=== PATIENT | female | born 1970 | race Caucasian/White ===

== ENCOUNTER → 2021-10-04 10:07 | Outpatient (CLI) | payer MEDICAID, SELFPAY ==
--- NOTE | 2021-10-04 10:10 | MRI_ITS ---
HISTORY: Low back pain, bilateral leg pain. TECHNIQUE: Multiplanar and multisequence MR images of the lumbar spine. IV Contrast dosage and agent: None. # of images incl. paperwork: 124. COMPARISON: XR 09/05/2021. FINDINGS: VERTEBRAE: Vertebral body heights maintained. No significant bone marrow signal abnormality. ALIGNMENT: No significant anterior or posterior subluxation. CONUS: Normal morphology and position at L1. SOFT TISSUES: Mild posterior subcutaneous edema. Atrophic left kidney with an incompletely imaged 5.7 cm cystic lesion. INTERVERTEBRAL DISCS: T12-L1, L1-2, L2-3:No significant posterior disc herniation, central canal stenosis, or foraminal narrowing. L3-4: Mild left paracentral disc protrusion abutting the left L4 nerve root with minimal narrowing of the thecal sac and mild left foraminal narrowing. L4-5: Small annular fissure. No significant posterior disc herniation, central canal stenosis, or foraminal narrowing. L5-S1: 0.7 x 2.1 cm central disc extrusion with mild inferior migration resulting in bilateral S1 nerve root impingement, and mild bilateral foraminal narrowing MRI/Spine Lumbar (Routine) IMPRESSION: Large central disc extrusion at L5-S1 resulting in nerve root impingement and severe spinal canal stenosis. Atrophic left kidney with an incompletely imaged cystic lesion. Recommend follow-up renal ultrasound. at 1658 Reported and signed by: Luz Fagan MD Electronically Signed: Luz Fagan MD at 16:57 EST Tel , Service support ,
== END ==
PROVIDERS: Referring Provider Orthopaedic Surgery; Visit Provider Orthopaedic Surgery
DX: M51.27 Other intervertebral disc displacement, lumbosacral region (principal)
CPT/HCPCS: 72148

== ENCOUNTER 2021-12-13 15:46 | Observation (INO) | payer MEDICAID, SELFPAY ==
--- NOTE | 2021-11-01 08:24 | EKG12_ITS ---
Test Reason : PRE-OP Blood Pressure : / mmHG Vent. Rate : 104 BPM Atrial Rate : 104 BPM P-R Int : 150 ms QRS Dur : 080 ms QT Int : 342 ms P-R-T Axes : 057 013 039 degrees QTc Int : 449 ms Sinus tachycardia Otherwise normal ECG No previous ECGs available Confirmed by HARRY FISCHER, MAGDIEL ([id number]), art editor LES LONG ([id number]) on 11/01/2021 1:35:05 PM Referred By: Bernabe Lozano Confirmed By:MAGDIEL MCDONALD MD
[2021-11-01 09:06] LABS: Absolute Lymphocyte Count 1.63 X10^3/uL (0.83-4.51); Absolute Neutrophil Count 2.5 X10^3/uL (2.0-7.7); Basophil# 0.02 X10^3/uL; Basophil% 0.4 % (0-1); Eosinophil# 0.05 X10^3/uL; Eosinophils% 1.1 % (0-5); Hematocrit 43.5 % (37-47); Lymphocyte # 1.63 X10^3/ul (0.83-4.51); Lymphocyte % 34.5 % (19-41); Mean Corp Hgb Conc 32.2 g/dL (32-36); Mean Corpuscular Hgb 25.4 pg (27.0-32.0); Mean Corpuscular Volume 78.8 fL (81-99); Mean Platelet Vol. 9.4 fl (6.2-12.0); Monocyte# 0.48 X10^3/uL; Monocyte% 10.2 % (0-10); NRBC Flagged by Analyzer 0 % (0-5); Neutrophil # 2.53 X10^3/uL (2.7-7.7); Neutrophil % 53.6 % (47-70); Platelet Count 293 K/mm3 (150-450); RBC Distribution Width CV 17.2 % (11.6-14.6); RBC Distribution Width SD 48.5 fl (35.1-43.9); Red Blood Count 5.52 M/mm3 (4.2-5.4); White Blood Count 4.7 K/mm3 (4.4-11.0)
[2021-11-01 09:33] LABS: Magnesium 2.2 mg/dL (1.6-2.6)
[2021-11-01 09:36] LABS: Anion Gap 9 (5-15); BUN 10 mg/dL (7-18); BUN/Creat Ratio 11.4 RATIO (10-20); Calcium,Total 9.1 mg/dL (8.5-10.1); Chloride 107 mmol/L (98-107); Creatinine, Serum 0.88 mg/dL (0.55-1.02); EST Glomerular Filtration Rate 73 mL/min (>60); Est Glom Filt Rate - Afr Amer 88 mL/min (>60); Glucose 139 mg/dL (74-106); Potassium 3.9 mmol/L (3.5-5.1); Sodium Level 138 mmol/L (136-145)
[2021-11-01 10:12] LABS: HIV - WCH Non-Reactive (Nonreactive); Hepatitis B Surface Antibody Reactive; Hepatitis C Antibody Non-Reactive (Nonreactive)
[2021-11-02 08:54] LABS: Hepatitis A AB, Total Negative (Negative)
--- NOTE | 2021-12-12 11:05 | PCM.HP.BLA ---
History and Physical Date of Admission: 12/13/21 [facility] [id number] [phone] OFFICE VISITDate of Service: 09/05/21 MR#:[id number]:[id number]: JOSH XIEep #:[id number]:[id number] Provider:Dr. Bernabe Lozano, Age/Sex: 51/F Location:[place]ina:Signed Intake Vital Signs 09/05/21 11:17 Height 5 ft 4 in Weight: 230 lb BMI 39.4 Intake Visit Reasons: LUMBAR SPINE Is patient in pain?: Yes Pain scale (1-10): 10 Allergies acetaminophen [From Vicodin] Allergy (Verified 09/05/21 11:19) vomit, SOB clarithromycin [From Biaxin] Allergy (Verified 09/05/21 11:19) vomit, SOB hydrocodone [From Vicodin] Allergy (Verified 09/05/21 11:19) vomit, SOB Medications tizanidine 4 mg capsule 4 mg PO QHS 09/05/21 [History Confirmed 09/05/21] tramadol 50 mg tablet 50 mg PO DAILY 09/05/21 [History Confirmed 09/05/21] HPI LUMBAR SPINE Details: Parts of this documentation were recorded by a scribe, this documentation accurately reflects the service provided and the decisions made by me, Dr. Bernabe Lozano, 09/05/21 1111. PIERO XIE is a 51 year old F here today for low back pain. Patient states that she had surgery scheduled in [place] but she recently moved and needs to find a new provider. Patient had xrays and an MRI which was mailed to her house. She notes that she has had pain since November where she picked up her grandson and had pain. She had a prior injury several years ago. Patient notes that her pain is down her bilateral leg, left greater than right. She has to wear slippers as her feet are extremely sensative. She is only able to lay on her right side. She has increased pain with all ADLs. She completed physical therapy, she is unsure of the location, which was not helpful. Patient notes had epidural injections, by a provider in [place], which were not helpful. Patient has been to the ED in [facility] where she has been given pain medications. Piero is a most pleasant lady 51 years old whom I will refer to by her first names since I cannot pronounce her last name. She apparently was scheduled for surgical intervention as mentioned in the paragraph above by my scribe. For the reasons mentioned she was unable to go through with the surgery this was supposed to happen in July. Her left leg hurts more than her right leg but they both hurt. In addition she states that she has to urinate frequently which she never did before. However she does not have any trouble starting her stream. She denies any bowel dysfunction. On examination she has more pain with flexion she does extension of her lumbar spine. She has very positive tension signs on both sides. She has very positive straight leg raising particularly on the left. He can stand on her toes with difficulty and stand on her heels. Her left Achilles reflex is decreased as compared to the right. She has no long tract signs. Clonus is absent and Babinski's are downgoing. The disc of her MRI scan should be delivered to her house any day now. She will deliver to my office so that I can review it I will call her by phone and presumptively potentially at least plan on doing surgical intervention depending on the findings. Her symptoms certainly suggest that she will need surgical intervention. Coding Level of Care Code Off vis,new,level 3 Diagnoses Herniated nucleus pulposus, L5-S1 M51.27 Time Spent (min) 30 Assessment and Plan Assessment and Plan (1) Herniated nucleus pulposus, L5-S1:
[2021-12-13] VITALS (14 sets, daily range): BP systolic 138–191; BP diastolic 77–117; PULSE 88–107; RESP 14–18; TEMP 36–36.6; O2SAT 96–100; BMI 42.3
[2021-12-13] MEDS: Lactated Ringers 1,000 ML 15 ML IV ×2 (10:04→11:45)
[2021-12-13] MEDS: Acetaminophen 500 MG Tablet 1000 MG PO (10:05)
[2021-12-13 10:16] LABS: Bedside Glucose 144 mg/dL (70-110)
[2021-12-13] MEDS: Cefazolin 2 GM in 0.9% Normal Saline 100 ML IV (11:14)
--- NOTE | 2021-12-13 11:20 | DISC_PTH ---
PATIENT: PIERO XIE LOC: MS3 U#:[id number] AGE/SX: 51/F ROOM: MS319 RE12/13/[address]: Dr. Selin Adhikari MD : 1970 BED: 1 DIS: 12/16/2021 SPEC #: [id number] RECD: 12/13/21 14:18 STATUS: BOUBACAR LAUGHLIN #: [id number] ML: 12/13/21 11:[address]: Bernabe Lozano DEPT: SURGICAL PATHOLOGY RECD BY: Marlen Brito ENTERED: 12/14/21 08:51 SP TYPE: DISC OTHR DR: MD Dr. Bernabe Hung, DO Dr. Derek White, DO Dr. Selin Adhikari MD No Primary Care Phys Tissues: Intervertebral disc, NOS Procedures: Surgery Specimen Level III Comments: @ Ordering doctor for SUIII edited from to @ by MILTON at 12/14/21 1443 @ Submitting doctor edited from to @ by JOOD at 12/14/21 1443 HEADER OPERATION: ERAS, laminectomy discectomy L5-S1 left side first PRE-OP DIAGNOSIS: Herniated nucleus pulposus L5-S1 TISSUE SUBMITTED: Disc L5-S1 MICROSCOPIC DIAGNOSIS Disc L5-S1: Fragments of fibrocartilaginous tissue with degenerative changes and a few fragments of bone. ELISE:bridger 12/15/2021 MICROSCOPIC DESCRIPTION Slides are reviewed. GROSS DESCRIPTION Received in fixative is one container labeled with the patient's name and designated disc L5-S1. The specimen consists of multiple irregular fragments of robbins, indurated tissue that in aggregate measure 3.5 x 3 x 0.5 cm. Printing Table Worker tissue is submitted in two cassettes. / ELISE:bridger 12/14/2021 TC:5 CPT: 19664
--- NOTE | 2021-12-13 11:20 | RAD_ITS ---
STUDY: X-RAY - LUMBAR SPINE REASON FOR EXAM: Female, 51 years old. LAMINECTOMY DISCECTOMY L5-S1, BILAT -- LT SIDE FIRST TECHNIQUE: 1 view(s) of the lumbar spine was obtained. COMPARISON: None FINDINGS: Intraoperative imaging was obtained. The localization initially is seen posterior to the L5-S1 disc space level. RAD/Spine 1 View Any Level IMPRESSION: The localization instrument is seen along the posterior aspect of the L5-S1 disc space level. Electronically Signed: Dioni Copeland MD at 14:00 EST ,
[2021-12-13] MEDS: THROMBIN (RECOMBINANT) 20,000 UNIT VIAL 20000 UNIT TOPICAL (12:01)
--- NOTE | 2021-12-13 12:58 | OP.PCM_ITS ---
Report of Operation Date of Procedure: 12/13/21 Description of Surgical Findings:: Preoperative diagnosis: Herniated disc L5-S1 Postoperative diagnosis: The same Procedure: Lumbar laminectomy discectomy L5-S1 Surgeon: Dr. Lozano medical receptionist assistant: Leanne Levy NP Anesthesia: General endotracheal anesthesia administered by [facility] Estimated blood loss: Less than 30 cc Drains: None Complications: None Procedure: Patient was taken to the OR where she was placed under general endotr acheal anesthesia while on her gurney. A Marinelli catheter was inserted. Neuro monitoring placed their leads on the patient. The patient was then placed in the prone position on the Campos frame. After appropriate positioning with care to protect her bony prominences her breasts her ulnar nerves of both elbow her brachial plexus on both sides the cervical spine and facial features the back was prepped and draped in standard fashion. A longitudinal incision was then made centered over L5-S1. Subcutaneous tissues were incised length of the skin incision. I then opened the lumbar fascia to the left of the spinous processes and elevated the paravertebral muscles off the lamina of S1 and the lamina of L5. An intraoperative x-ray was then taken with a marker in place to assure that we were indeed at that level which we were. Then elevated the remaining paravertebral muscles off the lamina and put a Estefani retractor in place. With Nazlini rongeurs I removed the fatty tissue off of the ligamentum flavum. I then thinned down the lamina which was quite thick of L5 on this left side with double-action rongeurs I then used a curette both straight and angled to release the ligamentum flavum off the underside of the lamina. I then also released part of it off the top of the S1 lamina. Using a hockey-stick under the medial portion of the ligamentum flavum I then cut the medial portion and then used curettes to release it off of the edge of the top of S1. I then remove the ligamentum flavum with 45 degree Kerrison rongeurs and moved it all the way lateralward and remove remove the remaining ligamentum flavum and it to open the lateral gutter. Then retracted the nerve root and dura medialward quite a bit. Then a fight the large herniation note that this was subligamentous and so since the vast majority of her pain with the left side we decided to first open the posterior longitudinal ligament and began removing disc from within the middle of the disc. This was done using pituitary rongeurs both a bite straits till we decompressed the entire thing probably decompressing the right side also. For that reason we decided not to open the right side at all. Bleeders were controlled with bipolar cautery and thrombin-soaked Gelfoam. We had excellent hemostasis throughout the case. Note also that every 10 or 15 minutes we thoroughly irrigated with copious amounts of sterile saline. We had excellent hemostasis at the end of the case we placed a amnionic membrane directly over the dura and nerve and covered it with Gelfoam. The ear was so dry that we decided to not put a drain in at all. I then closed the lumbar fascia using [id number] suture with #1 Vicryl. We then followed up by closing the subcutaneous tissues in layers with 0 Vicryl and 2-0 Vicryl in interrupted fashion. The skin was approximated using skin clips. Sterile dressings were then applied. She is then recovered in the OR she was moved to her hospital bed and taken to recovery in satisfactory condition. This is the end of operative summary on Carol Hernandes. Is Dr. Lozano dictating.
[2021-12-13] MEDS: Morphine 4 MG/ML Syringe IV ×3 (16:00→21:51)
[2021-12-13] MEDS: Lactated Ringers 1,000 ML 100 ML IV (16:01)
[2021-12-13] MEDS: diazePAM 5 MG Tablet PO (16:49)
--- NOTE | 2021-12-13 17:09 | PCM.PN.HOSP ---
Documented by User: CISCO Mercado 12/13/21 17:17 Subjective Subjective Patient seen and examined. Patient lying in bed on her right side reports that she is continuing to have pain despite receiving pain medication as well as Valium. Objective Data Objective Data Vital Signs: Vital Signs Temp Pulse Resp BP Pulse Ox 97.9 F 95 16 138/97 H 97 12/13/21 15:44 12/13/21 15:44 12/13/21 15:44 12/13/21 15:44 12/13/21 15:44 Oxygen Flow Rate (L/min) 4 Oxygen Delivery Method Room Air Weight: 246 lb 4.101 oz Body Mass Index (BMI) 42.3 Intake & Output: Intake and Output for Last 24 Hours 12/11/21 12/12/21 12/13/21 23:59 23:59 23:59 Intake Total 1280.75 / 1280.75 Output Total 1200 / 1200 Balance 80.75 / 80.75 Lab / Micro Data Result Diagrams: 11/01/21 08:41 11/01/21 08:41 Labs: Laboratory Results - last 24 hr 12/13/21 09:46: POC Glucose 144 H Micro: Microbiology 12/12/21 09:15 Interface Orders SARS-CoV-2 Antigen (Rapid) - Final 11/01/21 08:41 Swab (Method) Nasal Screen MRSA/MSSA - Final Radiography Diagnostic Testing: Radiology Impression Spine X-Ray 12/13/21 11:20 IMPRESSION: The localization instrument is seen along the posterior aspect of the L5-S1 disc space level. Electronically Signed: Dioni Copeland MD at 14:00 EST , Physical Exam Const alert, oriented x3 and no apparent distress HEENT head/scalp atraumatic Head and Scalp: normocephalic Eyes conjunctivae normal and no scleral icterus Neck no lymphadenopathy and supple General: trachea midline Resp normal respiratory effort, normal air movement and clear to auscultation bilaterally Effort and Inspection: able to speak in complete sentences and symmetric chest movement Cardio regular rate, regular rhythm, S1 normal heart sound and S2 normal heart sound GI normal to inspection, nondistended, normoactive bowel sounds, soft to palpation and non-tender Extremity normal to inspection, full ROM and no clubbing, cyanosis or edema Peripheral Pulses: Yes pulses 2+ throughout Skin no rashes or lesions noted, no wounds and skin turgor normal Skin Narrative: Dressings dry and intact, incisions not visualized at this time Neuro oriented x3, moves all extremities, no focal motor deficits and no sensory deficits noted Sensorium / Orientation: awake and alert Psych affect normal Assessment & Plan Assessment/Plan (1) Herniated nucleus pulposus, L5-S1: PLAN: 1. GERD -Patient takes lansoprazole at home, ordered pantoprazole here as a therapeutic interchange 2. History of hypertension -Patient has a history of hypertension but is not currently on medication due to recent weight loss. -Elevated blood pressures likely secondary to pain. -Vital signs per protocol 3. Lumbar laminectomy discectomy L5-S1 -Pain management protocol per Dr. Lozano -PT to eval and treat -Encourage incentive spirometry DVT prophylaxis-SCDs This patient was seen by Katia Oscar, WELDING MACHINE OPERATOR RESISTANCE-C under the supervision of Dr. White. 9 minutes spent in clinical coordination of patient's plan of care. Documented by User: Dr. Derek White DO 12/13/21 18:53 Objective Data Lab / Micro Data Result Diagrams: 11/01/21 08:41 11/01/21 08:41 Charges/Coding Addendum Addendum: Patient was seen and examined independently of Mandi Oscar, the hospitalist services been consulted for medical management on this patient who underwent a laminectomy today. Patient's medical problems include degenerative joint disease of the lumbar spine and GERD. Patient's significant other was in her room at the time my examination. Other than incisional back pain, patient has no complaints at this time. On examination she appeared in good health and spirits, she does not appear to be in any distress. Vital signs as documented. Skin warm and dry and without overt rashes. Neck without JVD, thyroid appears normal, trachea is midline, neck is supple. Lungs clear, normal air movement was noted. Heart exam notable for regular rhythm, normal sounds and absence of murmurs, rubs or gallops. Abdomen unremarkable and without evidence of organomegaly, masses, or abdominal aortic enlargement, bowel sounds are present in all 4 quadrants, no abdominal tenderness was noted. Extremities nonedematous, no cyanosis was noted, no clubbing was noted. Neuro: Cranial nerves II through XII are grossly intact, no focal motor deficits were noted, sensation to light touch and pinprick is intact, motor exam 5/5 throughout. Psych: Patient is alert and oriented x3, she does not appear anxious or depressed, she does not appear agitated. Impression: #1 GERD-continue Protonix # 2 degenerative joint disease of the lumbar spine-status post laminectomy/discectomy-orthopedic surgery is seeing patient Patient uses generic Prevacid at home for her GERD, she is now on Protonix here which I feel needs continued. Patient appears medically stable at this point. I have reviewed Mandi Oscar's progress note including her medical assessment and plan of care and endorse it. Total clinical time spent addressing the patient's medical issues, reviewing her medical data, and collaborating with the patient's care team: 20 minutes Visit Charges Inpatient E&M: 59010 Subs Hosp L2
[2021-12-13] MEDS: traMADol 50 MG Tablet PO (17:42)
[2021-12-13] MEDS: Cefazolin 1 GM/50 ML BAG IV (18:39)
[2021-12-13] MEDS: Pantoprazole Sodium 20 MG Tablet PO (21:50)
[2021-12-14] VITALS (11 sets, daily range): BP systolic 134–181; BP diastolic 70–112; PULSE 95–108; RESP 15–18; TEMP 36.6–37.7; O2SAT 93–98
[2021-12-14] MEDS: Morphine 4 MG/ML Syringe IV ×10 (01:23→22:55)
[2021-12-14] MEDS: Lactated Ringers 1,000 ML 100 ML IV (01:29)
[2021-12-14] MEDS: traMADol 50 MG Tablet PO ×2 (02:54→11:22)
[2021-12-14] MEDS: Cefazolin 1 GM/50 ML BAG IV (03:07)
[2021-12-14] MEDS: Pantoprazole Sodium 20 MG Tablet PO ×2 (07:32→20:49)
[2021-12-14] MEDS: diazePAM 5 MG Tablet PO ×2 (07:32→13:55)
[2021-12-14] MEDS: 0.9% Saline Lock 10 ML Syringe IV ×8 (08:21→22:55)
--- NOTE | 2021-12-14 10:50 | CASEMGMT ---
Addendum entered by Karri Madrid 12/16/21 15:36: 12/14/21 @ 1050. Correction: Plan. CM to assist w/getting a walker for pt prior to discharge. Original Note: RN CM DIRECTOR OF [employer] CM to room to meet with patient for initial transition planning/care coordination assessment. RN CM introduced self and role at [facility]. Pt voices understanding and consents to assessment at this time. Pt resting in bed at this time. Painful. RN CM offered to return later to complete assessment, when not as painful, but pt states okay for RN CM to complete at this time. Pt is A/O at this time and answers all questions appropriately. Care providers, pharmacy, and demographics verified/updated at this time. PCP: No PCP. Provided w/list of local PCP's. Pt voices appreciation. Specialists: Dr Colmenares Preferred Pharmacy: [facility] Retail Insurance: 7-bit[employer] Prescription Benefit: Yes Living Will/HPOA: Pt does not currently have LW/HCPOA and declines info at this time. LNOK: , Arnav Living Arrangements: Lives w/, daughter and son-in-law and their 4children. Pt and her just moved from [place] to stay w/them. Pt states move was d/t her dtr has a small inoperable brain tumor and pt and her moved to help take care of the children. Pt states she has been having so much pain that her dtr has actually been needing to assist her instead. Pt states plan is after she recovers from surgery, that she will be able to start helping her dtr w/taking care of the grandchildren. They live in a 2-story home w/1 step to enter. House has 4 bedrooms and 3 bathrooms. Pt's bedroom and private bathroom is on 2nd floor. Transportation: DME: States has the following DME: built-in shower seat. Pt does not have a walker and would like to get one. Pt provided w/list of local DME companies. Pt has no preference. HHC/SNF: No history of either. No needs identified. Pt wishes to return home and states has no concerns with going home at time of discharge. Pt states she has 1-2 beers a week and takes a hit of marijuana about once a week for severe GERD. She states does not have medical marijuana card, but is in the process of getting this. CM to follow for any further discharge planning/needs. Pt voices no further concerns/needs at this time. Advised pt to ask for CM if any further questions/concerns/needs arise. Voices understanding. PLAN: Home w/family support and discharge plans in place. CM to assist w/getting a W/C for pt prior to discharge. Janice AMAYAN RN CM
--- NOTE | 2021-12-14 11:50 | PN.HOSP_ITS ---
Documented by User: Dawood COLMENARES 12/14/21 11:58 Subjective Subjective Patient is a 51-year-old female comfortably resting in bed, alert and orient x3. Patient denies development of any new symptoms overnight. Does not appear in acute distress. Objective Data Objective Data Vital Signs: Vital Signs Temp Pulse Resp BP Pulse Ox 98.0 F 105 H 16 181/112 H 95 12/14/21 08:05 12/14/21 08:11 12/14/21 08:11 12/14/21 08:05 12/14/21 08:30 Oxygen Flow Rate (L/min) 4 Oxygen Delivery Method Room Air Weight: 246 lb 4.101 oz Body Mass Index (BMI) 42.3 Intake & Output: Intake and Output for Last 24 Hours 12/12/21 12/13/21 12/14/21 23:59 23:59 23:59 Intake Total 3352.42 / 3352.42 3767.00 / 3767.00 Output Total 4900 / 4900 3550 / 3550 Balance -1547.58 / -1547.58 217.00 / 217.00 Lab / Micro Data Result Diagrams: 11/01/21 08:41 11/01/21 08:41 Micro: Microbiology 12/12/21 09:15 Interface Orders SARS-CoV-2 Antigen (Rapid) - Final 11/01/21 08:41 Swab (Method) Nasal Screen MRSA/MSSA - Final Radiography Diagnostic Testing: Radiology Impression Spine X-Ray 12/13/21 11:20 IMPRESSION: The localization instrument is seen along the posterior aspect of the L5-S1 disc space level. Electronically Signed: Dioni Copeland MD at 14:00 EST , Physical Exam Const alert, oriented x3 and no apparent distress HEENT head/scalp atraumatic and moist oral mucous membranes Head and Scalp: normocephalic Eyes PERRL and conjunctivae normal Neck no lymphadenopathy, supple and no JVD Resp normal respiratory effort, no retractions and no use of accessory muscles Cardio regular rate, regular rhythm and no JVD GI normal to inspection, nondistended, normoactive bowel sounds Extremity normal to inspection Skin no rashes or lesions noted Neuro CN's II-XII intact bilaterally Psych affect normal Assessment & Plan Assessment/Plan (1) Herniated nucleus pulposus, L5-S1: PLAN: Patient is a 51-year-old female who presents to the [facility] on consult from orthopedics for management of chronic medical conditions status post L5-S1 lumbar laminectomy/discectomy. 1) GERD Continue pantoprazole. 2) History of hypertension Currently managing blood pressure with therapeutic lifestyle change, no home BP meds. blood pressures are currently elevated at 181/112, likely secondary to pain. As needed hydralazine ordered. 3) herniated L5-S1 POD 1 s/p lumbar laminectomy/discectomy L5-S1. Management per orthopedics. DVT prophylaxis - SCD's Patient seen by Dawood Jenkins PA-C, under the supervision of Dr. Adhikari. Time spent on patient care: 8 minutes. Documented by User: Dr. Selin Adhikari MD 12/14/21 14:37 Objective Data Lab / Micro Data Result Diagrams: 11/01/21 08:41 11/01/21 08:41 Charges/Coding Addendum Addendum: Patient seen by Dawood Jenkins PA-C under my supervision Patient seen and examined. She was in tears at the time of my review, and said she was in a lot of pain from the surgery. SHe tells me that she has a very high tolerance for pain meds, and needs a lot of pain meds for it to take effect. Review of systems was otherwise negative. O/E: Const alert, oriented x3 and in moderate distress and tearful due to pain HEENT head/scalp atraumatic and moist oral mucous membranes Head and Scalp: normocephalic Eyes PERRL and conjunctivae normal Neck no lymphadenopathy, supple and no JVD Resp normal respiratory effort, no retractions and no use of accessory muscles Cardio regular rate, regular rhythm and no JVD GI normal to inspection, nondistended, normoactive bowel sounds Extremity normal to inspection Skin no rashes or lesions noted; intact dressing over lower back Neuro CN's II-XII intact bilaterally Psych affect: anxious Assessment and plan #Herniated disc of L5-S1 s/p L5-Sq lumbar laminectomy/discectomy * today is POD 1. Complains that pain is poorly controlled * on IV morphine 4mg q3hr prn. Will switch the frequency to 2hr prn. * allergic to hydrocodone, so cannot get dilaudid * PO tylenol prn * incentive spirometry * PT/OT on board. Fall precautions. * #Hypertension: managed by diet. Not on any Bp meds. IV hydralazine prn #GERD: on PPI DVT prophylaxis; as per primary team spine surgery. Currently has SCDs. Patient seen by Dawood Jenkins PA-C under my supervision Time I spent on patient's care today: 20 minutes with a total time of 28 minutes as 8 minutes was spent by Dawood Jenkins PA-C. Visit Charges Inpatient E&M: 30605 Subs Hosp L2
--- NOTE | 2021-12-14 12:56 | PCM.PN.ORT ---
Objective Data Objective Data Bettie is on post op day #1. She states that her left leg and right leg pain are much much better and almost all gone. However her back hurts her quite a bit. Her dressing is dry on examination. Neurologically she is intact on examination. I explained her that because she cannot take any medications it seems like including hydrocodone oxycodone or Dilaudid that we have to do the best we can with morphine and tramadol. We will try to keep her 1 more day just for pain control. She already has been up today. She is using her incentive spirometry also. Progress is satisfactory. She will be seen tomorrow by my PA Jose Murray. He will discharge her at the appropriate time. Vital Signs: Vital Signs Temp Pulse Resp BP Pulse Ox 98.0 F 105 H 16 181/112 H 98 12/14/21 08:05 12/14/21 08:11 12/14/21 08:11 12/14/21 08:05 12/14/21 09:56 Oxygen Flow Rate (L/min) 4 Oxygen Delivery Method Room Air Weight: 246 lb 4.101 oz Body Mass Index (BMI) 42.3 Intake & Output: Intake and Output for Last 24 Hours 12/12/21 12/13/21 12/14/21 23:59 23:59 23:59 Intake Total 3352.42 / 3352.42 4567.00 / 4567.00 Output Total 4900 / 4900 3550 / 3550 Balance -1547.58 / -1547.58 1017.00 / 1017.00 Lab / Micro Data Result Diagrams: 11/01/21 08:41 11/01/21 08:41 Micro: Microbiology 12/12/21 09:15 Interface Orders SARS-CoV-2 Antigen (Rapid) - Final 11/01/21 08:41 Swab (Method) Nasal Screen MRSA/MSSA - Final Radiography Diagnostic Testing: Radiology Impression Spine X-Ray 12/13/21 11:20 IMPRESSION: The localization instrument is seen along the posterior aspect of the L5-S1 disc space level. Electronically Signed: Dioni Copeland MD at 14:00 EST ,
[2021-12-15 02:00] VITALS: O2SAT 96
[2021-12-15 04:05] VITALS: BP 141/71; PULSE 100; RESP 15; TEMP 37.2; O2SAT 96
[2021-12-15] MEDS: Morphine 4 MG/ML Syringe IV ×4 (04:25→20:37)
[2021-12-15] MEDS: 0.9% Saline Lock 10 ML Syringe IV ×4 (04:26→20:37)
[2021-12-15] MEDS: Pantoprazole Sodium 20 MG Tablet PO ×2 (08:32→20:36)
--- NOTE | 2021-12-15 09:58 | PN.HOSP_ITS ---
Documented by User: Stephani Cardenas NP, CLINICAL ATHLETIC INSTRUCTOR-C 12/15/21 10:05 Subjective Subjective Patient seen and examined. States she still having significant pain. States she is unable to take Tylenol due to causing upset stomach. Denies bowel/bladder issues. Denies other symptoms or complaints. Objective Data Objective Data Vital Signs: Vital Signs Temp Pulse Resp BP Pulse Ox 99.0 F 100 15 141/71 H 96 12/15/21 04:05 12/15/21 04:05 12/15/21 04:05 12/15/21 04:05 12/15/21 04:05 Oxygen Flow Rate (L/min) 4 Oxygen Delivery Method Room Air Weight: 246 lb 4.101 oz Body Mass Index (BMI) 42.3 Intake & Output: Intake and Output for Last 24 Hours 12/13/21 12/14/21 12/15/21 23:59 23:59 23:59 Intake Total 3352.42 / 3352.42 6067.00 / 6367.00 400 / 400 Output Total 4900 / 4900 3550 / 3550 Balance -1547.58 / -1547.58 2517.00 / 2817.00 400 / 400 Lab / Micro Data Result Diagrams: 11/01/21 08:41 11/01/21 08:41 Micro: Microbiology 12/12/21 09:15 Interface Orders SARS-CoV-2 Antigen (Rapid) - Final 11/01/21 08:41 Swab (Method) Nasal Screen MRSA/MSSA - Final Physical Exam Const alert, oriented x3 and no apparent distress Orientation / Consciousness: awake, oriented to person, oriented to place and oriented to time Nutritional Appearance: obese HEENT normocephalic and moist oral mucous membranes Eyes PERRL, EOMs intact bilaterally and conjunctivae normal Neck no lymphadenopathy Resp normal respiratory effort and clear to auscultation bilaterally Cardio regular rate, regular rhythm and no murmurs Peripheral Pulses: pulses 2+ throughout GI normal to inspection, nondistended, normoactive bowel sounds, non-tender and non-distended Extremity normal to inspection Skin no rashes or lesions noted Skin Narrative: Lumbar postoperative dressing intact. Lesions: no lesions Rashes: no rashes Trauma: no lacerations or abrasions Neuro CN's II-XII intact bilaterally, no focal motor deficits, no sensory deficits noted and deep tendon reflexes 2+ bilaterally Psych mental status grossly normal and affect normal Assessment & Plan Assessment/Plan (1) Herniated nucleus pulposus, L5-S1: PLAN: 1. Herniated disc L5-S1 status post lumbar laminectomy discectomy [id number] per surgery. PT/OT. As needed pain regimen. 2. Hypertension-intermittently elevated. Continue to monitor. As needed hydralazine. 3. GERD-on PPI. 4. Obesity- encouraged diet and lifestyle modifications. DVT prophylaxis- SCDs This patient was seen by CISCO Rodriguez under the supervision of Dr. Adhikari. Time spent examining patient, reviewing data and subsequent management of care: 7 Minutes Documented by User: Dr. Selin Adhikari MD 12/15/21 16:20 Objective Data Lab / Micro Data Result Diagrams: 11/01/21 08:41 11/01/21 08:41 Charges/Coding Addendum Addendum: Patient seen by Stephani PECK under my supervision Patient seen and examined. Pain is better controlled today she rated at 7 out of 10. She has no other complaints and review of systems otherwise negative. O/E: Const alert, oriented x3 and no apparent distress Orientation / Consciousness: awake, oriented to person, oriented to place and oriented to time Nutritional Appearance: obese HEENT normocephalic and moist oral mucous membranes Eyes PERRL, EOMs intact bilaterally and conjunctivae normal Neck no lymphadenopathy Resp normal respiratory effort and clear to auscultation bilaterally Cardio regular rate, regular rhythm and no murmurs Peripheral Pulses: pulses 2+ throughout GI normal to inspection, nondistended, normoactive bowel sounds, non-tender and non-distended Extremity normal to inspection Skin no rashes or lesions noted Skin Narrative: Lumbar postoperative dressing intact. Lesions: no lesions Rashes: no rashes Trauma: no lacerations or abrasions Neuro CN's II-XII intact bilaterally, no focal motor deficits, no sensory deficits noted and deep tendon reflexes 2+ bilaterally Psych mental status grossly normal and affect normal Assessment and plan #Herniated disc of L5-S1 s/p L5-Sq lumbar laminectomy/discectomy * today is POD 2. Pain is better controlled today * on IV morphine 4mg q2hr prn. * On PO tylenol prn * incentive spirometry * PT/OT on board. Fall precautions. * #Hypertension: managed by diet. Not on any Bp meds. IV hydralazine prn #GERD: on PPI DVT prophylaxis; as per primary team spine surgery. Currently has SCDs. Patient seen by Mina Cardenas CLINICAL ATHLETIC INSTRUCTOR-C under my supervision Total time I spent on patient's care today: 21 mins, with CLINICAL ATHLETIC INSTRUCTOR spending 7 mins, making a total of 28 mins Visit Charges Inpatient E&M: 63647 Subs Hosp L2
[2021-12-15 10:23] VITALS: BP 149/91; PULSE 105; RESP 18; TEMP 37.6; O2SAT 95
[2021-12-15] MEDS: traMADol 50 MG Tablet PO (15:08)
--- NOTE | 2021-12-15 15:16 | PCM.PN.ORT ---
Subjective Subjective Patient evaluated today at bedside with patient lying in bed in right lateral decubitus position. Patient states that she still is having a lot of pain in the back. She has some minor left buttock pain at the same time she states that she is not having any pain radiating down the leg like she was preoperatively. She has been able to get up and walk to the bathroom which she states does exacerbate her pain. She has not had any headache, dizziness, blurred vision, GI symptoms, or any other symptoms. Objective Data Objective Data Vital Signs: Vital Signs Temp Pulse Resp BP Pulse Ox 99.6 F H 105 H 18 149/91 H 95 12/15/21 10:23 12/15/21 10:23 12/15/21 10:23 12/15/21 10:23 12/15/21 10:23 Oxygen Flow Rate (L/min) 4 Oxygen Delivery Method Room Air Weight: 246 lb 4.101 oz Body Mass Index (BMI) 42.3 Intake & Output: Intake and Output for Last 24 Hours 12/13/21 12/14/21 12/15/21 23:59 23:59 23:59 Intake Total 3352.42 / 3352.42 6067.00 / 6367.00 400 / 400 Output Total 4900 / 4900 3550 / 3550 Balance -1547.58 / -1547.58 2517.00 / 2817.00 400 / 400 Lab / Micro Data Result Diagrams: 11/01/21 08:41 11/01/21 08:41 Micro: Microbiology 12/12/21 09:15 Interface Orders SARS-CoV-2 Antigen (Rapid) - Final 11/01/21 08:41 Swab (Method) Nasal Screen MRSA/MSSA - Final Physical Exam Narrative Patient is a 51-year-old mildly obese female seen today at her bedside postoperative day 2 after L5-S1 Lumbar laminectomy discectomy. Patient at this time is alert and oriented x3 with no acute distress at this time while lying in bed. She is some mild evidence of discomfort when she tries to roll over or move in the bed. She is conversing easily without any confusion or difficulties with speech. Extremity Left Lower Extremity: lower leg inspection (Inspection of the lower leg shows no acute abnormalities. There is no generalized swelling and no ecchymosis/bruising, erythema, or evident skin changes.), palpation, neurovascular exam (Patient has normal sensation to light touch throughout the lower extremity. She has intact motor function of\foot/toes. No evident gross motor dysfunction/weakness compared to the right leg.), other (Patient has soft compartments throughout the entire lower extremity.) and special tests Lower Leg Special Test - Left: Marcus's sign: Negative Skin General Skin Exam: no breakdown; Negative for ecchymosis or erythema Wound Narrative: Incision site in the midline of the lumbar spine shows good approximation and no surrounding erythema, discharge, warmth, or other signs of acute inflammation or infection. [place] are currently in place. Overlying dressing is also clean and dry. Neuro Sensorium / Orientation: awake, alert, oriented to person, oriented to place and oriented to time Speech: speech normal Sensory Exam: extremities light-touch: normal Assessment & Plan Assessment/Plan (1) Herniated nucleus pulposus, L5-S1: (2) Other acute postprocedural pain: PLAN: Patient was seen today at her bedside postop day 2 for L5-S1 lumbar laminectomy/discectomy. At this time patient has shown pretty much full resolution of the radicular type pain in the lower extremity at the same time she has continued to have pretty significant postoperative pain in the lumbar spine. She has required morphine every 2-3 hours due to pain scale being above 7. As a result she has not been able to take any of the oral tramadol which is the only at home medicine she will be able to take having allergies to oxycodone, hydrocodone and other codeine products. At this time we did discuss with patient that in order for her to go home that we need to really begin to transition to what she will be taking at home which is the Ultram. Right now again having had morphine every 2-3 hours I do not feel that it would be ideal to send her home. Therefore we really need to begin transitioning her to the Ultram stretching out her morphine to every 6-8 hours only. Right now while she was lying in bed she stated her pain was at a 5 and therefore would stick with Ultram right now and not do any morphine. We can try to do more icing to the area which may help as well. Her incision looks great at this time without any signs of acute inflammation or infection. She is neurovascularly intact throughout the extremity with soft compartments and negative Homans. She is to continue to do her ankle pumps while she is lying in bed and they can continue with the SCDs. We can leave the dressing in place at this time and change it if there is any type of saturation or if it comes loose. We will reevaluate tomorrow and as long as she has been able to decrease her morphine use then we will discharge her tomorrow.
[2021-12-15 15:24] VITALS: BP 145/85; PULSE 108; RESP 18; TEMP 37; O2SAT 98
[2021-12-15 20:45] VITALS: BP 155/83; PULSE 93; RESP 18; TEMP 36.8; O2SAT 97
[2021-12-15] MEDS: diazePAM 5 MG Tablet PO (20:51)
[2021-12-16 03:05] VITALS: BP 133/65; PULSE 84; RESP 16; TEMP 36.9; O2SAT 96
[2021-12-16] MEDS: traMADol 50 MG Tablet PO ×2 (03:11→11:25)
[2021-12-16] MEDS: Morphine 2 MG/ML Syringe IV (08:29)
[2021-12-16] MEDS: 0.9% Saline Lock 10 ML Syringe IV (08:30)
[2021-12-16] MEDS: Pantoprazole Sodium 20 MG Tablet PO (08:30)
--- NOTE | 2021-12-16 09:26 | PN.HOSP_ITS ---
Documented by User: Stephani Cardenas NP, MARINE DESIGNER-C 12/16/21 09:31 Subjective Subjective Patient seen and examined. Reports significant improvement in pain. Denies other symptoms or complaints. Patient reports plan for discharge today per Ortho. Objective Data Objective Data Vital Signs: Vital Signs Temp Pulse Resp BP Pulse Ox 98.4 F 84 16 133/65 H 96 12/16/21 03:05 12/16/21 03:05 12/16/21 03:05 12/16/21 03:05 12/16/21 03:05 Oxygen Flow Rate (L/min) 4 Oxygen Delivery Method Room Air Weight: 246 lb 4.101 oz Body Mass Index (BMI) 42.3 Intake & Output: Intake and Output for Last 24 Hours 12/14/21 12/15/21 12/16/21 23:59 23:59 23:59 Intake Total 6067.00 / 6367.00 400 / 400 Output Total 3550 / 3550 Balance 2517.00 / 2817.00 400 / 400 Lab / Micro Data Result Diagrams: 11/01/21 08:41 11/01/21 08:41 Micro: Microbiology 12/12/21 09:15 Interface Orders SARS-CoV-2 Antigen (Rapid) - Final 11/01/21 08:41 Swab (Method) Nasal Screen MRSA/MSSA - Final Physical Exam Const alert, oriented x3 and no apparent distress Orientation / Consciousness: awake, oriented to person, oriented to place and oriented to time HEENT normocephalic and moist oral mucous membranes Eyes PERRL, EOMs intact bilaterally and conjunctivae normal Neck no lymphadenopathy Resp normal respiratory effort and clear to auscultation bilaterally Cardio regular rate, regular rhythm and no murmurs Peripheral Pulses: pulses 2+ throughout GI normal to inspection, nondistended, normoactive bowel sounds, non-tender and non-distended Extremity normal to inspection Skin no rashes or lesions noted Skin Narrative: Lumbar dressing intact. Lesions: no lesions Rashes: no rashes Trauma: no lacerations or abrasions Neuro CN's II-XII intact bilaterally, no focal motor deficits, no sensory deficits noted and deep tendon reflexes 2+ bilaterally Psych mental status grossly normal and affect normal Assessment and Plan 1. Herniated disc L5-S1 status post lumbar laminectomy discectomy [id number] per surgery. PT/OT. As needed pain regimen. 2. Hypertension-intermittently elevated. Suspect pain contributing. Recommend further outpatient monitoring and initiation of regimen if blood pressure above goal on an outpatient basis. 3. GERD-on PPI. 4. Obesity- encouraged diet and lifestyle modifications. DVT prophylaxis- SCDs This patient was seen by CISCO Rodriguez under the supervision of Dr. Adhikari. Time spent examining patient, reviewing data and subsequent management of care: 6 Minutes Medications: Prescriptions This Visit Medication Instructions Recorded lansoprazole 20 mg PO BID 10/31/21 Primary Care Provider: No Primary Care Phys Referring Provider: Dr. Bernabe Lozano DO Assessment and Plan (1) Herniated nucleus pulposus, L5-S1: Status: Acute (2) Other acute postprocedural pain: Status: Acute Documented by User: Dr. Selin Adhikari MD 12/16/21 16:19 Objective Data Lab / Micro Data Result Diagrams: 11/01/21 08:41 11/01/21 08:41 Charges/Coding Addendum Addendum: Patient seen by Stephani PECK under my supervision Patient seen and examined. She felt much better today and her pain was much better controlled. She had no active complaints and review of systems otherwise negative. She is for discharge today by spine surgery. O/E: Const alert, oriented x3 and no apparent distress Orientation / Consciousness: awake, oriented to person, oriented to place and oriented to time Nutritional Appearance: obese HEENT normocephalic and moist oral mucous membranes Eyes PERRL, EOMs intact bilaterally and conjunctivae normal Neck no lymphadenopathy Resp normal respiratory effort and clear to auscultation bilaterally Cardio regular rate, regular rhythm and no murmurs Peripheral Pulses: pulses 2+ throughout GI normal to inspection, nondistended, normoactive bowel sounds, non-tender and non -distended Extremity normal to inspection Skin no rashes or lesions noted Skin Narrative: Lumbar postoperative dressing intact. Lesions: no lesions Rashes: no rashes Trauma: no lacerations or abrasions Neuro CN's II-XII intact bilaterally, no focal motor deficits, no sensory deficits noted and deep tendon reflexes 2+ bilaterally Psych mental status grossly normal and affect normal Assessment and plan #Herniated disc of L5-S1 s/p L5-Sq lumbar laminectomy/discectomy * today is POD 3. Pain is much better controlled today * on IV morphine 4mg q2hr prn. * On PO tylenol prn * incentive spirometry * PT/OT on board. Fall precautions. * #Hypertension: managed by diet. Not on any Bp meds. IV hydralazine prn #GERD: on PPI DVT prophylaxis; as per primary team spine surgery. Currently has SCDs. Disposition: Patient stable for discharge home from hospital standpoint. Total time spent on care of patient today: 20 minutes, with MARINE DESIGNER spending 6 minutes on care of patient. Total time spent 26 minutes. Visit Charges Inpatient E&M: 35328 Subs Hosp L2
[2021-12-16 10:00] VITALS: BP 128/81; PULSE 95; RESP 16; TEMP 36.9; O2SAT 97
--- NOTE | 2021-12-16 10:23 | CASEMGMT ---
IVAN CM in to pt room, provided pt with a local, in network list of DME compaines, pt chose [employer]. Faxed FWW script to [facility] at this time so FWW will be dc'd to pt room prior to dc.
[2021-12-16 14:19] VITALS: BP 127/81; PULSE 106; RESP 18; TEMP 37.1; O2SAT 98
--- NOTE | 2021-12-16 15:40 | CASEMGMT ---
RN CM NOTE: Walker has been delivere to pt's room. Janice AMAYAN RN CM
--- NOTE | 2021-12-16 15:52 | PCM.DC.SUM ---
Providers Date of Admission: 12/13/21 Primary Care Physician: Carole Primary Care Phys Consultations 12/13/21 15:36 Consult: Hospitalist Routine Consulting Provider: Derek White Reason for Consult: Medical Management EMERGENT Consult: No MD Notified: Yes Date Notified: 12/13/21 Time Notified: 16:43 Method of Notification: Text Reason For Visit: LAMINECTOMY DISCECTOMY L5, S1 BILATERA Diagnosis Discharge Diagnosis (1) Herniated nucleus pulposus, L5-S1: Status: Acute Code(s): M51.27 - Other intervertebral disc displacement, lumbosacral region (2) Other acute postprocedural pain: Status: Acute Code(s): G89.18 - Other acute postprocedural pain Medications at Discharge Home Medications lansoprazole 20 mg PO BID 10/31/21 cyclobenzaprine 5 mg tablet 5 mg PO TID PRN #30 tab 11/29/21 tramadol 100 mg tablet 100 mg PO Q6H PRN 15 Days #60 tab 11/29/21 Hospital Course Operations - (L5-S1 Lumbar laminectomy-discectomy ) Summary of Care Provided Minutes Spent on Discharge: 15 Hospital Course: Patient presented to the hospital for planned surgical procedure on the lumbar spine. Patient had chronic history of low back pain with radicular symptoms and imaging revealed evident herniations of the nucleus pulposus and L5-S1. Patient underwent successful L5-S1 laminectomy and discectomy and was transferred to the floor for observation/admission. Patient initially had some significant postsurgical pains in the back at the same time she did have pretty immediate improvement with the radicular pain down the leg. Upon discharge today she states she is not having any radicular pains down the leg. She has some minor left buttock pains that she states are now intermittent as well as pains at the incision site. She does state that today the incisional pain/postoperative pain is much improved. She was initially taking 4 mg of morphine every 3 hours in order to control her pain. In the last 24 hours patient has only received 6 mg total and has been controlled on 100 mg of tramadol. Patient has not had any GI, , or other complication symptoms. At this time patient and her feel she is ready to be discharged and is able to self manage at home. Physical Exam Const alert, oriented x3, no apparent distress and well nourished General Appearance: cooperative, comfortable, well kempt and well developed Extremity General Extremity: Negative for cyanosis or mottling Left Lower Extremity: lower leg inspection (No evidence of generalized swelling of the extremity and no skin color changes or other abnormalities.), palpation (Patient does not have any tenderness on palpation of the lower extremity. ), neurovascular exam (Patient has normal sensation to light touch. She has intact gross motor function. Normal 2+ pulses.) and special tests Lower Leg Special Test - Left: Marcus's sign: Negative Skin General Skin Exam: no breakdown Lesions: no lesions Rashes: no rashes Wound Narrative: Occlusive dressing remains in place and lumbar spine. There is no surrounding erythema or evidence of swelling. Dressing is clean, and dry without saturation/discharge noted. She has minor tenderness on palpation over the incision. Neuro Speech: speech normal Gait (Neuro): assistive device used walker Sensory Exam: extremities light-touch: normal (Right and left lower extremity) Psych Appearance: grossly normal and appropriate Activity / Motor Behavior: appropriate eye contact Speech: normal speech Thought Process: normal thought process Thought Content: normal thought content Weight / BMI Weight Weight: 246 lb 4.101 oz Body Mass Index (BMI) 42.3 ABG / Lab / Microbiology Data Result Diagrams: 11/01/21 08:41 11/01/21 08:41 Microbiology: Microbiology 12/12/21 09:15 Interface Orders SARS-CoV-2 Antigen (Rapid) - Final 11/01/21 08:41 Swab (Method) Nasal Screen MRSA/MSSA - Final D/C Instructions Discharge Diet: No restrictions Discharge Activity: May Not Drive, May Shower and Use Walker Weight Bearing Status: Weight bearing as tolerated (With use of walker) Lifting Restricted to (Lbs): 5 Call your doctor if your incision/area has: Continuous Slow Oozing, Increased Pain/ Swelling, Foul Smelling Discharge and Swelling at the incision site Call your doctor if you observe: Fever of 101 or Higher, Inability to have a bowel movement, Shortness of breath, Chest pain and Calf discomfort Change Dressing in: 2 days Remove Dressing in: 2 days Cleanse incision/area with: Soap & Water Additional Instructions: Patient should not be bending, twisting, or crouching at all. Continue to ice the area as needed. Monitor the incision site daily. Please Follow Up With: Bernabe Lozano DO When: 2 weeks postop Meaningful Use Info Meaningful Use Diagnoses (Choose all that apply): None applicable Discharge Plan Admission Admit Date/Time: 12/13/21 15:46 Attending Provider: Selin Adhikari Primary Care Provider: Care Physician,No Primary Consulting Providers: Yon Manuel Mark Discharge Orders/Prescriptions Prescriptions: No Action lansoprazole 15 mg Capsule,Delayed Release(Dr/Ec) 20 mg PO BID RF: 0 tramadol 100 mg tablet 100 mg PO Q6H PRN (Reason: pain) 15 Days Qty: 60 RF: 0 cyclobenzaprine 5 mg tablet 5 mg PO TID PRN (Reason: muscle spasm) Qty: 30 RF: 0 Referrals / Follow Up: Care Physician,No Primary [Primary Care Provider] - Disposition Disposition (needs filled in before D/C Order can be placed): Home, Self Care Charges/Coding Visit Charges Inpatient E&M: 27400 SNF Disch
== END 2021-12-16 16:25 | disposition home or self-care (01) ==
LOC: MS3 12-14 07:24
PROVIDERS: Anesthesiology; Admitting Provider Orthopaedic Surgery; Referring Provider Orthopaedic Surgery; Visit Provider Student in an Organized Health Care Education/Training Program
PROC: (CPT 63030; principal; 2021-12-13 10:50)
DX: M51.17 Intervertebral disc disorders with radiculopathy, lumbosacral region (principal); Z68.41 Body mass index [BMI] 40.0-44.9, adult; M51.27 Other intervertebral disc displacement, lumbosacral region; I10 Essential (primary) hypertension; M47.26 Other spondylosis with radiculopathy, lumbar region; E66.9 Obesity, unspecified; K21.9 Gastro-esophageal reflux disease without esophagitis
CPT/HCPCS: 63030; 00630; C1769; J2405; 36415; 72020; 80048; 82962; 83735; 85025; 86703; 86706; 86708; 86803; 87077; 87081; 87426; 88304; 93005; 96361; 96365; 96366; 96375; 96376; 97116; 97162; 97530; 99218; 99251; C9803; J7120; A4216; G0378; G0463

== ENCOUNTER 2022-04-04 09:14 | Emergency (ER) | payer MEDICAID, SELFPAY ==
[2022-04-04 09:15] VITALS: BP 213/131; PULSE 109; RESP 17; TEMP 36.6; O2SAT 98; BMI 40.3
--- NOTE | 2022-04-04 09:23 | CT_ITS ---
STUDY: CT ABDOMEN AND PELVIS WITHOUT CONTRAST REASON FOR EXAM: Female, 51 years old. Kidney Stone. Left-sided flank pain. Nausea. RADIATION DOSAGE (If Supplied By Facility): CTDIvol = ( 23.42 ) mGy, DLP = ( 1292.96 ) mGycm TECHNIQUE: Transaxial images were obtained from the dome of the diaphragm to the symphysis pubis without oral contrast, and without intravenous contrast. Sagittal and coronal images were reconstructed. Individualized dose optimization techniques were used for this CT. COMPARISON: None. FINDINGS: The visualized lung bases are unremarkable. The visualized portions of the heart are within normal limits. Normal liver. There are surgical clips in the gallbladder fossa consistent with a prior cholecystectomy. Normal spleen. Normal pancreas. Normal bilateral adrenal glands. There is a 9 cm x 8.9 signed by 9.3 cm cyst involving the entire left kidney. There is evidence of a marked degree of the left renal atrophy. Normal left kidney. There is a moderate-sized hiatal hernia. Normal small intestine. There are multiple colonic diverticula consistent with diverticulosis. The patient is status post appendectomy. Normal abdominal aorta. Normal inferior vena cava. There is borderline retroperitoneal lymphadenopathy with enlarged nodes no greater than 10mm in the short axis diameter. Normal urinary bladder. Normal abdominal wall. Normal osseous structures. CT/Abdomen/Pelvis without Cont IMPRESSION: Large left renal cyst with marked atrophy of the [place] left kidney. Electronically Signed: Dioni Copeland MD at 10:17 EDT ,
--- NOTE | 2022-04-04 09:25 | EX.ED.DYSGE1 ---
HPI History of Present Illness Chief Complaint: Flank Pain Informant: patient Onset/Context/Timing Onset: Hours (5) Context: Sudden Onset Timing: Continuous (Not colicky) Quality: Ache Location: Left low back Current Severity: Severe Maximum Severity: Severe Worsened by: Nothing Relieved by: Nothing Associated Symptoms Associated Symptoms: Nausea/vomiting Narrative Narrative: Patient woke up this morning and then afterwards suddenly had severe pain in her left low back. Nonradiating, has had no pain in her side or abdomen, no urinary symptoms, and it is constant and steady. Has caused her to have nausea and vomiting. No fevers, thoracic symptoms, not necessarily worse with movement, never had this before. She had a history of low back pain but she had surgery and has been fine since then and this is different. [facility] Medical History Alcohol use Back pain Difficulty swallowing Gastric reflux Herniated nucleus pulposus, L5-S1 History of diverticulitis History of hiatal hernia History of pain when walking Hypertension Injury of back Marijuana use Wears glasses Home Medications lansoprazole 20 mg PO BID 10/31/21 [History Last Taken 12/13/21] lisinopril 10 mg PO DAILY #30 tab 04/04/22 [Rx Last Taken Unknown] tramadol 50 mg PO Q4H PRN PRN 3 Days #16 tab 04/04/22 [Rx Last Taken Unknown] Allergy/AdvReac Type Severity Reaction Status Date / Time acetaminophen [From Vicodin] Allergy vomit, SOB Verified 01/23/22 10:45 clarithromycin [From Biaxin] Allergy vomit, SOB Verified 01/23/22 10:45 hydrocodone [From Vicodin] Allergy vomit, SOB Verified 01/23/22 10:45 oxycodone Allergy Shortness Verified 01/23/22 10:45 of breath Surgical History History of carpal tunnel release of both wrists History of surgery Hx laparoscopic cholecystectomy Hx of appendectomy Hx of section Hx of shoulder surgery Hx of tonsillectomy Hx of tubal ligation Social History Smoking Status: Never smoker ROS ROS ED Constitutional Constitutional ED: Denies chills or fever(s) Eyes Eyes: Denies change in vision or diplopia ENT ENT ED: Denies rhinorrhea or sore throat Cardiovascular Cardiovascular: Denies chest pain or palpitations Respiratory/Chest Respiratory/Chest: Denies cough or dyspnea Gastrointestinal Gastrointestinal: Reports nausea and vomiting; Denies abdominal pain or diarrhea Genitourinary Genitourinary ED: Denies dysuria or hematuria Musculoskeletal Musculoskeletal: Reports back pain; Denies neck pain Integumentary Denies abscess or rash Neurologic Neurologic: Denies headache(s), paresthesias or weakness Psychiatric Psychiatric: Denies anxiety or suicidal thoughts EXAM Physical Exam Const Vital Signs: 04/04/22 09:15 04/04/22 10:17 Temperature 97.8 F Temperature Source Temporal Pulse Rate 109 H 90 Respiratory Rate 17 17 Blood Pressure 213/131 H 182/104 H Blood Pressure Mean 158 130 Pulse Ox 98 97 Oxygen Delivery Method Room Air Room Air Positive well nourished, well developed and obese General Appearance ED: well developed and NAD Nutritional Appearance: obese HEENT Reports moist mucous membranes normocephalic and atraumatic Eyes PERRL and EOMs intact bilaterally Neck full ROM and supple Resp normal respiratory effort and clear to auscultation bilaterally Cardio regular rate, regular rhythm and no murmurs GI non-tender and non-distended Auscultation: normoactive bowel sounds Palpation: soft; Negative for pulsatile mass Back/Spine no CVA tenderness General Back: other FROM Extremity normal to inspection General Extremety ED: Negative for edema, pulses abnormal or tenderness General Extremity: Negative for edema or pulses abnormal Neuro oriented x3, CN's II-XII intact bilaterally and no sensory deficits noted Sensorium / Orientation: awake and alert Motor Exam: strength 5/5 throughout Skin no rashes or lesions noted and no wounds MDM MDM MDM Narrative Medical decision making narrative: Renal function is normal, urine shows proteinuria but no signs of infection or blood, and CT shows an atrophic left kidney as well as a very large renal cyst, but no signs of a stone. This appears to be incidental, these findings should not be responsible for her left side/back pain. I discussed this with her. Dose of morphine did not really help her pain, but her pressure came down from 213 down to 182/104. She states the last time she remembers having her blood pressure checked was in December when she had back surgery, and it was in the 120s. She has never had anyone tell her anything about her kidney before, but she does not remember the last time she had imaging. Her renal function is normal, so I do not think we need to scan her with contrast to look for renal infarct especially since the unilateral kidney is already atrophic. This appears to be chronic. With this in context with her severe hypertension I think putting her on lisinopril is reasonable and having her follow-up closely with PCP. She moved to this area late last year does not have a PCP yet so she is referred to 1, and given some pain medication for her back pain which certainly could be musculoskeletal, there is no evidence of a AAA on CT and therefore I do not think she has a dissection; she has equal DP 2+/4 pulses bilaterally in her feet. Lab Data Attestation: I reviewed the patient's lab results. Labs: Laboratory Results - last 24 hr 04/04/22 04/04/22 04/04/22 09:37 09:37 09:37 WBC 11.1 H RBC 4.92 Hgb 12.9 Hct 40.3 MCV 81.9 MCH 26.2 L MCHC 32.0 RDW Std Deviation 44.8 H RDW Coeff of [place] 15.0 H Plt Count 363 MPV 9.9 Immature Gran % (Auto) 0.400 Neut % (Auto) 67.6 Lymph % (Auto) 24.5 [place] % (Auto) 5.8 Eos % (Auto) 1.3 Baso % (Auto) 0.4 Absolute Neuts (auto) 7.5 Absolute Lymphs (auto) 2.71 Nucleated RBC % 0 Sodium 138 Potassium 3.8 Chloride 103 Carbon Dioxide 28.0 Anion Gap 7 BUN 15 Creatinine 0.89 Estim Creat Clear Calc 66.03 Est GFR (MDRD) Af Amer 86 Est GFR (MDRD) Non-Af 71 BUN/Creatinine Ratio 16.8 Glucose 158 H Calcium 9.3 Urine Color Yellow Urine Clarity Clear Urine pH 6.5 Ur Specific [place] 1.015 Urine Protein 30 H Urine Glucose (UA) 100 H Urine Ketones Negative Urine Occult Blood Negative Urine Nitrite Negative Urine Bilirubin Negative Urine Urobilinogen Normal Ur Leukocyte Esterase Negative Urine RBC 0 SEEN Urine WBC 0 SEEN Ur Squamous Epith Cells 0 SEEN Urine Bacteria 0 SEEN Urine Mucus 0 SEEN Radiography Diagnostic Testing: Clinical Impression(s) from Imaging Studies Abdomen/Pelvis CT 04/04/22 09:23 IMPRESSION: Large left renal cyst with marked atrophy of the [place] left kidney. Electronically Signed: Dioni Copeland MD at 10:17 EDT , Discharge Plan Triage Chief Complaint: Flank Pain ED Provider: Truong Owens Dx/Rx/DC Orders Clinical Impression: Acute left-sided low back pain, Atrophy of left kidney, Cyst of left kidney, Episode of hypertension Instructions: Hypertension Dc, Simple Kidney Cysts, ED Back Pain (Acute or Chronic) Prescriptions: New lisinopril 10 mg tablet 10 mg PO DAILY Qty: 30 RF: 0 tramadol 50 MG tablet 50 mg PO Q4H PRN PRN (Reason: Pain) 3 Days Qty: 16 RF: 0 No Action lansoprazole 15 mg Capsule,Delayed Release(Dr/Ec) 20 mg PO BID RF: 0 Primary Care Provider: Care Physician,No Primary Referrals: Aubree Isabel MD [STAFF PHYSICIAN] - As soon as possible (call for appt) Care Physician,No Primary [Primary Care Provider] - Disposition Disposition: Home, Self Care
[2022-04-04] MEDS: Ondansetron 4 MG/2 ML Vial IV (09:39)
[2022-04-04] MEDS: Morphine 4 MG/ML Syringe IV ×2 (09:39→10:56)
[2022-04-04 09:51] LABS: Bacteria 0 SEEN /hpf (None Seen); Mucous, Urine 0 SEEN /hpf (<or=2+); Red Blood Cells-Urine 0 SEEN /hpf (0-5); Squamous Epithelial Cells - UA 0 SEEN /hpf (5-10); White Blood Cells 0 SEEN /hpf (0-5)
[2022-04-04 09:52] LABS: Absolute Lymphocyte Count 2.71 X10^3/uL (0.83-4.51); Absolute Neutrophil Count 7.5 X10^3/uL (2.0-7.7); Basophil# 0.04 X10^3/uL; Basophil% 0.4 % (0-1); Eosinophil# 0.14 X10^3/uL; Eosinophils% 1.3 % (0-5); Hematocrit 40.3 % (37-47); Hemoglobin 12.9 g/dL (12.0-15.0); Lymphocyte # 2.71 X10^3/ul (0.83-4.51); Lymphocyte % 24.5 % (19-41); Mean Corpuscular Hgb 26.2 pg (27.0-32.0); Mean Corpuscular Volume 81.9 fL (81-99); Mean Platelet Vol. 9.9 fl (6.2-12.0); Monocyte# 0.64 X10^3/uL; Monocyte% 5.8 % (0-10); NRBC Flagged by Analyzer 0 % (0-5); Neutrophil # 7.48 X10^3/uL (2.7-7.7); Neutrophil % 67.6 % (47-70); Platelet Count 363 K/mm3 (150-450); RBC Distribution Width SD 44.8 fl (35.1-43.9); Red Blood Count 4.92 M/mm3 (4.2-5.4); White Blood Count 11.1 K/mm3 (4.4-11.0)
[2022-04-04 09:53] LABS: Color, Urine Yellow (Yellow); Glucose, Dipstick 100 mg/dl (Normal); Ketone-Dipstick Negative (Negative); Leukocyte Esterase-Dipstick Negative /ul (Negative); Nitrite-Dipstick Negative (Negative); Occult Blood-Urine Negative /ul (Negative); Protein-Dipstick 30 mg/dl (Negative); Specific Gravity, Urine 1.015 (1.002-1.030); Urine Bilirubin Dipstick Negative (Negative); Urine Clarity Clear (Clear); Urine Urobilinogen Normal (Normal); Urine pH 6.5 (5.0 - 8.0)
[2022-04-04 10:07] LABS: Anion Gap 7 (5-15); BUN 15 mg/dL (7-18); BUN/Creat Ratio 16.8 RATIO (10-20); Calcium,Total 9.3 mg/dL (8.5-10.1); Chloride 103 mmol/L (98-107); Creatinine, Serum 0.89 mg/dL (0.55-1.02); EST Glomerular Filtration Rate 71 mL/min (>60); Est Glom Filt Rate - Afr Amer 86 mL/min (>60); Estimated Creatinine Clearance 66.03 ml/min; Glucose 158 mg/dL (74-106); Potassium 3.8 mmol/L (3.5-5.1); Sodium Level 138 mmol/L (136-145)
[2022-04-04 10:17] VITALS: BP 182/104; PULSE 90; RESP 17; O2SAT 97
[2022-04-04] MEDS: Lisinopril 10 MG Tablet PO (10:56)
[2022-04-04 11:17] VITALS: BP 172/98; PULSE 73; RESP 18; O2SAT 96
== END 2022-04-04 11:18 | disposition home or self-care (01) ==
PROVIDERS: Emergency Provider Emergency Medicine; Visit Provider Emergency Medicine
DX: M54.50 Low back pain, unspecified (principal); Z68.41 Body mass index [BMI] 40.0-44.9, adult; N26.1 Atrophy of kidney (terminal); N28.1 Cyst of kidney, acquired; I10 Essential (primary) hypertension; K21.9 Gastro-esophageal reflux disease without esophagitis; Z87.19 Personal history of other diseases of the digestive system; Z79.899 Other long term (current) drug therapy; Z90.49 Acquired absence of other specified parts of digestive tract; R11.2 Nausea with vomiting, unspecified; E66.9 Obesity, unspecified
CPT/HCPCS: 74176; 80048; 81001; 85025; 96374; 96375; 96376; 99284; A4216; J2405

== ENCOUNTER 2022-04-06 13:59 | Emergency (ER) | payer MEDICAID, SELFPAY ==
[2022-04-06 14:01] VITALS: BP 202/111; PULSE 109; RESP 18; TEMP 36.6; O2SAT 95; BMI 40.3
--- NOTE | 2022-04-06 14:39 | CT_ITS ---
STUDY: CT ABDOMEN AND PELVIS WITH CONTRAST REASON FOR EXAM: Female, 51 years old. left flank pain RADIATION DOSAGE (If Supplied By Facility): CTDIvol = ( 15.41 ) mGy, DLP = ( 1277.67 ) mGycm TECHNIQUE: Transaxial images were obtained from the dome of the diaphragm to the symphysis pubis without oral contrast. IV 100mL Isovue-300 was administered. Sagittal and coronal images were reconstructed. Individualized dose optimization techniques were used for this CT. COMPARISON: 04/04/2022 FINDINGS: The visualized lung bases are unremarkable. The visualized portions of the heart are within normal limits. Normal liver. There are surgical clips in the gallbladder fossa consistent with a prior cholecystectomy. Normal spleen. Normal pancreas. Normal bilateral adrenal glands. Normal right kidney. 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 There is a small hiatal hernia. Normal small intestine. There are multiple colonic diverticula consistent with diverticulosis. There is non-visualization of the appendix. Normal abdominal aorta. Normal inferior vena cava. Normal retroperitoneum. Normal urinary bladder. Normal abdominal wall. Normal osseous structures. CT/Abdomen/Pelvis W IV Cont ONLY IMPRESSION: No acute abnormality. Electronically Signed: Bacilio Aggarwal MD at 16:44 EDT ,
[2022-04-06] MEDS: Morphine 4 MG/ML Syringe IV ×3 (14:55→17:05)
[2022-04-06] MEDS: 0.9% Normal Saline 1,000 ML 1000 ML IV (14:55)
[2022-04-06] MEDS: Ondansetron 4 MG/2 ML Vial IV (14:55)
[2022-04-06 15:07] LABS: Bacteria 0 SEEN /hpf (None Seen); Mucous, Urine 0 SEEN /hpf (<or=2+); Red Blood Cells-Urine 0 SEEN /hpf (0-5); Squamous Epithelial Cells - UA 0 SEEN /hpf (5-10); White Blood Cells 0 SEEN /hpf (0-5)
[2022-04-06 15:10] LABS: Absolute Neutrophil Count 7.9 X10^3/uL (2.0-7.7); Basophil# 0.05 X10^3/uL; Basophil% 0.4 % (0-1); Color, Urine Straw (Yellow); Eosinophil# 0.15 X10^3/uL; Eosinophils% 1.3 % (0-5); Glucose, Dipstick 100 mg/dl (Normal); Hematocrit 39.6 % (37-47); Hemoglobin 12.4 g/dL (12.0-15.0); Ketone-Dipstick Negative (Negative); Leukocyte Esterase-Dipstick Negative /ul (Negative); Lymphocyte % 19.7 % (19-41); Mean Corp Hgb Conc 31.3 g/dL (32-36); Mean Corpuscular Hgb 26.2 pg (27.0-32.0); Mean Corpuscular Volume 83.7 fL (81-99); Mean Platelet Vol. 10.2 fl (6.2-12.0); Monocyte# 0.79 X10^3/uL; Monocyte% 7.1 % (0-10); NRBC Flagged by Analyzer 0 % (0-5); Neutrophil # 7.92 X10^3/uL (2.7-7.7); Neutrophil % 71.1 % (47-70); Nitrite-Dipstick Negative (Negative); Occult Blood-Urine Negative /ul (Negative); Platelet Count 341 K/mm3 (150-450); Protein-Dipstick 15 mg/dl (Negative); RBC Distribution Width CV 14.8 % (11.6-14.6); RBC Distribution Width SD 45.2 fl (35.1-43.9); Red Blood Count 4.73 M/mm3 (4.2-5.4); Urine Bilirubin Dipstick Negative (Negative); Urine Clarity Clear (Clear); Urine Urobilinogen Normal (Normal); Urine pH 6.5 (5.0 - 8.0); White Blood Count 11.2 K/mm3 (4.4-11.0)
[2022-04-06 15:30] LABS: Anion Gap 5 (5-15); BUN 10 mg/dL (7-18); Calcium,Total 9.2 mg/dL (8.5-10.1); Chloride 105 mmol/L (98-107); Creatinine, Serum 0.77 mg/dL (0.55-1.02); EST Glomerular Filtration Rate 85 mL/min (>60); Est Glom Filt Rate - Afr Amer 102 mL/min (>60); Estimated Creatinine Clearance 76.32 ml/min; Glucose 124 mg/dL (74-106); Potassium 4.1 mmol/L (3.5-5.1); Sodium Level 138 mmol/L (136-145)
--- NOTE | 2022-04-06 15:34 | EX.ED.GENINJ ---
HPI History of Present Illness Chief Complaint: Flank Pain Informant: patient Narrative Narrative: Patient presents with left side pain. It radiates to the left lower quadrant. There is some back pain. She states she has had a history of back pain and herniated disc but this does not feel like that. It does not radiate down the legs. She urinates frequently but states this is not new. She does not have dysuria. No blood in the urine. No history of kidney stones. At the end of the evaluation I find out she was here 2 days ago and had extensive work-up. She states she is allergic to most pain medicines and cannot tolerate them. She has used morphine before she has used tramadol. She was sent home with tramadol. She states it just hurts too much. She is also had nausea or vomiting when the pain is bad. No fevers chills. Nothing consistently makes it better or worse. [facility] Medical History Alcohol use Back pain Difficulty swallowing Gastric reflux Herniated nucleus pulposus, L5-S1 History of diverticulitis History of hiatal hernia History of pain when walking Hypertension Injury of back Marijuana use Wears glasses Home Medications lansoprazole 20 mg PO BID 10/31/21 [History Last Taken 12/13/21] lisinopril 10 mg PO DAILY #30 tab 04/04/22 [Rx Last Taken Unknown] tramadol 50 mg PO Q4H PRN PRN 3 Days #16 tab 04/04/22 [Rx Last Taken Unknown] ondansetron 4 mg PO Q8H PRN #10 tab 04/06/22 [Rx Last Taken Unknown] tramadol 50 mg PO Q6H PRN 3 Days #10 tab 04/06/22 [Rx Last Taken Unknown] Allergy/AdvReac Type Severity Reaction Status Date / Time acetaminophen [From Vicodin] Allergy vomit, SOB Verified 04/06/22 14:01 clarithromycin [From Biaxin] Allergy vomit, SOB Verified 04/06/22 14:01 hydrocodone [From Vicodin] Allergy vomit, SOB Verified 04/06/22 14:01 oxycodone Allergy Shortness Verified 04/06/22 14:01 of breath Surgical History History of carpal tunnel release of both wrists History of surgery Hx laparoscopic cholecystectomy Hx of appendectomy Hx of section Hx of shoulder surgery Hx of tonsillectomy Hx of tubal ligation Social History Smoking Status: Never smoker ROS ROS ED Constitutional Constitutional ED: Denies fever(s) or subjective ENT ENT ED: Denies rhinorrhea Cardiovascular Cardiovascular: Denies chest pain or palpitations Respiratory/Chest Respiratory/Chest: Denies cough, dyspnea or sputum Gastrointestinal Gastrointestinal: Reports abdominal pain, diarrhea, nausea, vomiting and other Details: Patient states she has had diarrhea since she was 18 years old and it is no different now than it was in the past. Genitourinary Genitourinary ED: Reports urinary frequency; Denies dysuria Musculoskeletal Musculoskeletal: Denies myalgias Integumentary Denies abscess, Abrasions or rash Neurologic Neurologic: Denies headache(s) Psychiatric Psychiatric: Denies depression Endocrine Endocrinology: Reports polyuria; Denies polydipsia Hematologic/Lymphatic Hematologic/Lymphatic: Denies easy bleeding or easy bruising Allergic/Immunologic Allergic/Immunologic ED: Denies urticaria EXAM Physical Exam Const Vital Signs: 04/06/22 14:01 04/06/22 16:04 04/06/22 16:41 Temperature 97.8 F Temperature Source Temporal Pulse Rate 109 H 93 84 Respiratory Rate 18 16 16 Blood Pressure 202/111 H 181/112 H 189/106 H Blood Pressure Mean 141 135 133 Pulse Ox 95 96 95 Oxygen Delivery Method Room Air Room Air Room Air Positive well nourished and well developed General Appearance ED: well developed and NAD HEENT atraumatic Eyes EOMs intact bilaterally Resp normal respiratory effort and clear to auscultation bilaterally Resp Narrative: No pain with deep breath. Cardio regular rhythm Rate: regular rate GI normal to inspection, nondistended, normoactive bowel sounds GI Narrative: Patient does have some tenderness to the left lower quadrant left side and some mild left CVA tenderness to. I see no rash. Palpation: soft Back/Spine normal to inspection General Back: CVA tenderness Extremity normal to inspection Neuro oriented x3 Sensorium / Orientation: alert Psych mental status grossly normal Skin no rashes or lesions noted MDM MDM MDM Narrative Medical decision making narrative: Patient CBC electrolytes are all essentially normal and really unchanged from a few days ago. is negative. Urine shows no sign of infection. Lactate is negative. I did do CT with contrast this time. There is no acute abnormality seen. She does have a very large cyst on the left kidney. However, I was able to find an MRI of October 04, 2021 and I can see what appears to be the same cyst on a portion of the images. Therefore, I do not think that alone is causing her symptoms. I will write for a few tramadol. We will write for some Zofran for nausea. She will follow-up with her physician. Lab Data Attestation: I reviewed the patient's lab results. Labs: Laboratory Results - last 24 hr 04/06/22 04/06/22 04/06/22 14:25 14:25 14:25 WBC 11.2 H RBC 4.73 Hgb 12.4 Hct 39.6 MCV 83.7 MCH 26.2 L MCHC 31.3 L RDW Std Deviation 45.2 H RDW Coeff of [place] 14.8 H Plt Count 341 MPV 10.2 Immature Gran % (Auto) 0.400 Neut % (Auto) 71.1 H Lymph % (Auto) 19.7 [place] % (Auto) 7.1 Eos % (Auto) 1.3 Baso % (Auto) 0.4 Absolute Neuts (auto) 7.9 H Absolute Lymphs (auto) 2.20 Nucleated RBC % 0 Sodium 138 Potassium 4.1 Chloride 105 Carbon Dioxide 28.0 Anion Gap 5 BUN 10 Creatinine 0.77 Estim Creat Clear Calc 76.32 Est GFR (MDRD) Af Amer 102 Est GFR (MDRD) Non-Af 85 BUN/Creatinine Ratio 13.0 Glucose 124 H Lactic Acid Calcium 9.2 Serum , Qual NEGATIVE Urine Color Urine Clarity Urine pH Ur Specific [place] Urine Protein Urine Glucose (UA) Urine Ketones Urine Occult Blood Urine Nitrite Urine Bilirubin Urine Urobilinogen Ur Leukocyte Esterase Urine RBC Urine WBC Ur Squamous Epith Cells Urine Bacteria Urine Mucus 04/06/22 04/06/22 14:25 14:49 WBC RBC Hgb Hct MCV MCH MCHC RDW Std Deviation RDW Coeff of [place] Plt Count MPV Immature Gran % (Auto) Neut % (Auto) Lymph % (Auto) [place] % (Auto) Eos % (Auto) Baso % (Auto) Absolute Neuts (auto) Absolute Lymphs (auto) Nucleated RBC % Sodium Potassium Chloride Carbon Dioxide Anion Gap BUN Creatinine Estim Creat Clear Calc Est GFR (MDRD) Af Amer Est GFR (MDRD) Non-Af BUN/Creatinine Ratio Glucose Lactic Acid 1.0 Calcium Serum , Qual Urine Color Straw Urine Clarity Clear Urine pH 6.5 Ur Specific [place] 1.010 Urine Protein 15 H Urine Glucose (UA) 100 H Urine Ketones Negative Urine Occult Blood Negative Urine Nitrite Negative Urine Bilirubin Negative Urine Urobilinogen Normal Ur Leukocyte Esterase Negative Urine RBC 0 SEEN Urine WBC 0 SEEN Ur Squamous Epith Cells 0 SEEN Urine Bacteria 0 SEEN Urine Mucus 0 SEEN Radiography Diagnostic Testing: Clinical Impression(s) from Imaging Studies Abdomen/Pelvis CT 04/06/22 14:39 IMPRESSION: No acute abnormality. Electronically Signed: Bacilio Aggarwal MD at 16:44 EDT , Discharge Plan Triage Chief Complaint: Flank Pain Other Complaint: Abd Pain Nausea/Vomiting ED Provider: Luis Eduardo Babb Dx/Rx/DC Orders Clinical Impression: Acute left flank pain Instructions: ED Flank Pain, Uncertain Cause Prescriptions: New ondansetron 4 mg tablet,disintegrating 4 mg PO Q8H PRN (Reason: nausea and vomiting) Qty: 10 RF: 0 tramadol 50 mg tablet 50 mg PO Q6H PRN (Reason: pain) 3 Days Qty: 10 RF: 0 No Action lansoprazole 15 mg Capsule,Delayed Release(Dr/Ec) 20 mg PO BID RF: 0 lisinopril 10 mg tablet 10 mg PO DAILY Qty: 30 RF: 0 tramadol 50 MG tablet 50 mg PO Q4H PRN PRN (Reason: Pain) 3 Days Qty: 16 RF: 0 Primary Care Provider: Care Physician,No Primary Referrals: Care Physician,No Primary [Primary Care Provider] - Activity Restrictions/Additional Instructions: Follow-up with your physician in 2 to 3 days. Return with fevers, numbness, worsening pain or other concerns. Disposition Disposition: Home, Self Care
[2022-04-06 16:04] VITALS: BP 181/112; PULSE 93; RESP 16; O2SAT 96
[2022-04-06 16:08] LABS: Internal QC Validated? YES +Cl - CLEAR BKGD; Pregnancy, Serum, hCG Quali. NEGATIVE Negative
[2022-04-06] MEDS: Labetalol (Prefilled) 20 MG/4 ML 10 MG IV (16:32)
[2022-04-06 16:41] VITALS: BP 189/106; PULSE 84; RESP 16; O2SAT 95
[2022-04-06 17:12] VITALS: BP 178/95; PULSE 82; RESP 16; O2SAT 95
== END 2022-04-06 17:24 | disposition home or self-care (01) ==
PROVIDERS: Emergency Provider Emergency Medicine; Visit Provider Emergency Medicine
DX: R10.9 Unspecified abdominal pain (principal); R35.0 Frequency of micturition; K21.9 Gastro-esophageal reflux disease without esophagitis; I10 Essential (primary) hypertension; Z79.899 Other long term (current) drug therapy; Z87.19 Personal history of other diseases of the digestive system; Z90.49 Acquired absence of other specified parts of digestive tract; R11.2 Nausea with vomiting, unspecified; R19.7 Diarrhea, unspecified; N28.1 Cyst of kidney, acquired
CPT/HCPCS: 74177; 80048; 81001; 83605; 84703; 85025; 87086; 87088; 96361; 96374; 96375; 96376; 99283; J7030; Q9967; A4216; J2405

== ENCOUNTER 2022-12-01 11:16 | Emergency (ER) | payer MEDICAID, SELFPAY ==
[2022-12-01 11:17] VITALS: BP 193/12; PULSE 122; RESP 16; TEMP 36.3; O2SAT 97; BMI 41.1
--- NOTE | 2022-12-01 11:30 | EKG12_ITS ---
Test Reason : HTN Blood Pressure : / mmHG Vent. Rate : 099 BPM Atrial Rate : 099 BPM P-R Int : 166 ms QRS Dur : 080 ms QT Int : 356 ms P-R-T Axes : 052 016 066 degrees QTc Int : 456 ms Normal sinus rhythm Nonspecific ST and T wave abnormality Abnormal ECG Confirmed by HARRY FISCHER, MAGDIEL ([id number]), make up editor LES LONG ([id number]) on 12/04/2022 9:17:30 AM Referred By: Confirmed By:MAGDIEL MCDONALD MD
--- NOTE | 2022-12-01 11:30 | RAD_ITS ---
STUDY: X-RAY CHEST REASON FOR EXAM: Female, 52 years old. Chest pain TECHNIQUE: Single AP portable view of the chest. COMPARISON: None. FINDINGS: EKG lead traversing. The lungs are clear and expanded. There is no demonstrated pleural abnormality. Normal size heart. Normal mediastinum and barrie. Normal visualized pulmonary arteries. Normal visualized aortic arch and descending thoracic aorta. Normal visualized thoracic spine. Normal visualized ribs, clavicles, and shoulders. Hiatal hernia. RAD/Chest 1 View (Portable) IMPRESSION: Hiatal hernia. The lungs are clear. Electronically Signed: Dioni Copeland MD at 12:35 EST ,
--- NOTE | 2022-12-01 11:32 | EX.ED.DYSGE1 ---
HPI History of Present Illness Chief Complaint: Hypertension Detail of Chief Complaint: Atypical chest discomfort. Informant: patient Onset/Context/Timing Onset: Today Current Severity: Mild Maximum Severity: Mild Narrative Narrative: 52-year-old female history of hypertension she takes lisinopril hydrochlorothiazide combination 20 mg a day. She is been out of her medications 2 to 3 weeks. Currently she has no primary care physician so was unable to get her medications refilled. She has some mild atypical chest sensation. She will call chest pain. She is having no nausea, diaphoresis or shortness of breath. Its not exertional. Prior similar symptoms: Yes Recent Illness/Hospitalization: No PFSH PFS Medical History Alcohol use Back pain Difficulty swallowing Gastric reflux Herniated nucleus pulposus, L5-S1 History of diverticulitis History of hiatal hernia History of pain when walking Hypertension Injury of back Marijuana use Wears glasses Home Medications lansoprazole 15 mg capsule,delayed release 20 mg PO BID 10/31/21 [History Last Taken 12/13/21] lisinopril 10 mg tablet 10 mg PO DAILY #30 tabs 04/04/22 [Rx Last Taken Unknown] tramadol 50 mg tablet 50 mg PO Q4H PRN PRN Pain 3 days #16 tabs 04/04/22 [Rx Last Taken Unknown] ondansetron 4 mg disintegrating tablet 4 mg PO Q8H PRN nausea and vomiting #10 tabs 04/06/22 [Rx Last Taken Unknown] tramadol 50 mg tablet 50 mg PO Q6H PRN pain 3 days #10 tabs 04/06/22 [Rx Last Taken Unknown] lisinopril 20 mg-hydrochlorothiazide 12.5 mg tablet 1 tab PO DAILY #30 tabs 12/01/22 [Rx Last Taken Unknown] Allergy/AdvReac Type Severity Reaction Status Date / Time acetaminophen [From Vicodin] Allergy vomit, SOB Verified 12/01/22 11:17 clarithromycin [From Biaxin] Allergy vomit, SOB Verified 12/01/22 11:17 hydrocodone [From Vicodin] Allergy vomit, SOB Verified 12/01/22 11:17 oxycodone Allergy Shortness Verified 12/01/22 11:17 of breath Surgical History History of carpal tunnel release of both wrists History of surgery Hx laparoscopic cholecystectomy Hx of appendectomy Hx of section Hx of shoulder surgery Hx of tonsillectomy Hx of tubal ligation Social History Smoking Status: Never smoker ROS ROS ED ROS Narrative Elevated blood pressure. Mild headache. Review of Systems ROS Unobtainable: Denies due to encephalopathy Constitutional Constitutional ED: Denies chills Eyes Eyes: Denies blurry vision ENT ENT ED: Denies ear pain Cardiovascular Cardiovascular: Reports chest pain Respiratory/Chest Respiratory/Chest: Denies cough or dyspnea Gastrointestinal Gastrointestinal: Denies abdominal pain Genitourinary Genitourinary ED: Denies dysuria or hematuria Musculoskeletal Musculoskeletal: Denies arthralgias Integumentary Denies abscess Neurologic Neurologic: Reports headache(s) Psychiatric Psychiatric: Denies anxiety Endocrine Endocrinology: Denies cold intolerance Hematologic/Lymphatic Hematologic/Lymphatic: Reports none Allergic/Immunologic Allergic/Immunologic ED: Denies mouth swelling or tongue swelling EXAM Physical Exam Narrative Exam Narrative: Well-appearing 52-year-old female. Initial blood pressure 193/120. She does not look septic or toxic. No distress. Pulse ox 97% on room air no signs hypoxia. H EENT exam unremarkable. Neck nontender no JVD. Lungs clear equal symmetrical. Heart tachycardic rate about 115 no murmur. Chest were nontender. Abdomen soft nontender. Normal bowel sounds no peritoneal signs. Obese. Moving all 4 extremities. Calves are nontender without edema or cords. Neurologically she is awake and alert with no focal motor deficits. Const Vital Signs: 12/01/22 11:17 12/01/22 11:32 12/01/22 12:01 Temperature 97.3 F L Temperature Source Temporal Pulse Rate 122 H Respiratory Rate 16 Respiratory Pattern Normal Blood Pressure 193/12 H Blood Pressure Mean 72 Pulse Ox 97 Oxygen Delivery Method Room Air Room Air Positive well nourished, well developed and obese; Negative for cachectic, contractures or unkempt General Appearance ED: well developed and NAD; Negative for unkempt, cachectic, contractures, cyanotic, diaphoretic or pallor Nutritional Appearance: obese; Negative for cachectic HEENT Reports moist mucous membranes; Denies dry mucous membranes Negative for trauma or tenderness Mouth ED: No dry mucous membranes Mouth: No dry mucous membranes Eyes PERRL and EOMs intact bilaterally General Eye ED: Negative for pale conjunctiva, scleral icterus or other Neck no lymphadenopathy, supple and no JVD General: Negative for tenderness Chest Wall inspection of chest normal and palpation of chest normal Chest: Negative for other Resp normal respiratory effort and clear to auscultation bilaterally Effort and Inspection: Negative for retractions Auscultation: Negative for rales, rhonchi or wheezes Cardio regular rhythm, S1 normal heart sound, S2 normal heart sound and no murmurs; Negative for regular rate Rate: tachycardic GI normal to inspection, nondistended, normoactive bowel sounds, non-tender, non-distended and no masses Inspection: Negative for abdominal distention Auscultation: normoactive bowel sounds; Negative for hyperactive bowel sounds Back/Spine no CVA tenderness General Back: Negative for CVA tenderness Cervical Spine: Negative for cervical spine tenderness Thoracic Spine / Upper Back: Negative for thoracic spinal tenderness Lumbar Spine / Lower Back: Negative for lumbar spinal tenderness Extremity normal to inspection General Extremety ED: Negative for edema or tenderness General Extremity: Negative for edema Neuro oriented x3 and CN's II-XII intact bilaterally Sensorium / Orientation: alert; Negative for orientation impaired, lethargic or stuporous Motor Exam: strength 5/5 throughout Psych mental status grossly normal Appearance: Negative for unkempt Attitude: No agitated Mood & Affect: Negative for depressed Skin no rashes or lesions noted, no wounds and skin turgor normal General Skin Exam: elasticity normal; Negative for jaundice or pallor Lesions: No lesion noted Rashes: No rashes noted Trauma: Negative for abrasion Wounds: Negative for wounds noted MDM MDM MDM Narrative Medical decision making narrative: Patient with acute on chronic hypertension she has been out of her hypertensive medications lisinopril and hydrochlorothiazide combination. She is having very atypical noncardiac sounding chest pain. She will be placed in the cardiac work-up. I think that will be unremarkable. She will be given a dose of lisinopril for her blood pressure and reevaluated. If her pressure improves and she is feeling better she will be discharged to home. Repeat exam patient doing well at approximately 12:30 PM. Patient doing well. Blood pressure is 130/85. She will be discharged to home. I will write her prescription for lisinopril hydrochlorothiazide sent to her pharmacy. Give them a primary care physician to follow-up with with her family practice. Lab Data Attestation: I reviewed the patient's lab results. Lab results narrative: CBC shows white count 9.2 H&H 11.1 and 35.9. Platelets 373. Electrolytes unremarkable gap at 9. Normal BUN of 18 creatinine 1. Glucose 139. Troponin 8. Chest x-ray is unremarkable. Normal cardiac silhouette mediastinum. Labs: Laboratory Results - last 24 hr 12/01/22 12/01/22 11:40 11:40 WBC 9.2 RBC 4.39 Hgb 11.1 L Hct 35.9 L MCV 81.8 MCH 25.3 L MCHC 30.9 L RDW Std Deviation 48.7 H RDW Coeff of [place] 16.4 H Plt Count 373 MPV 10.1 Immature Gran % (Auto) 0.300 Neut % (Auto) 71.7 H Lymph % (Auto) 19.9 [place] % (Auto) 7.1 Eos % (Auto) 0.5 Baso % (Auto) 0.5 Absolute Neuts (auto) 6.6 Absolute Lymphs (auto) 1.83 Nucleated RBC % 0 Sodium 141 Potassium 3.7 Chloride 107 Carbon Dioxide 25.0 Anion Gap 9 BUN 18 Creatinine 1.05 H Estim Creat Clear Calc 55.35 Est GFR (MDRD) Af Amer 71 Est GFR (MDRD) Non-Af 59 L BUN/Creatinine Ratio 17.1 Glucose 139 H Calcium 9.0 Troponin I High Sens 8 Radiography Chest X-Ray - ED: 1 View, Read by ED Physician, Heart, Lungs, Mediastinum, Bony Structures and No Acute Disease Diagnostic Testing: Chest x-ray, portable, single view interpreted myself shows no acute abnormality. Normal cardiac silhouette mediastinum. Rhythm Strip Rhythm Strip: Sinus Rhythm Rate: 99 Ectopy: None EKG Initial EKG: Attestation: I personally reviewed and interpreted this EKG as follows: Interpretation: Sinus Rhythm and No Acute Injury Pattern Comments: Normal sinus rhythm rate of 99 no acute signs of [place] or ischemia. No dysrhythmia. Prior: No Prior Discharge Plan Triage Chief Complaint: Hypertension ED Provider: Yimi De La Cruz Dx/Rx/DC Orders Clinical Impression: Chronic hypertension, Atypical chest pain, Medication refill Instructions: ED High Blood Pressure Hypertension Prescriptions: New lisinopril-hydrochlorothiazide 20-12.5 mg tablet 1 tab PO DAILY Qty: 30 1RF No Action lansoprazole 15 mg Capsule,Delayed Release(Dr/Ec) 20 mg PO BID lisinopril 10 mg tablet 10 mg PO DAILY Qty: 30 0RF tramadol 50 MG tablet 50 mg PO Q4H PRN PRN (Reason: Pain) 3 Days Qty: 16 0RF ondansetron 4 mg tablet,disintegrating 4 mg PO Q8H PRN (Reason: nausea and vomiting) Qty: 10 0RF tramadol 50 mg tablet 50 mg PO Q6H PRN (Reason: pain) 3 Days Qty: 10 0RF Primary Care Provider: Care Physician,No Primary Referrals: Dawood Mg MD [Med Staff - Levers Lace Machine Operator] - As soon as possible Care Physician,No Primary [Primary Care Provider] - Activity Restrictions/Additional Instructions: Call follow-up with a primary care physician. Lisinopril hydrochlorothiazide daily. it application support analyst an [id number] blood pressure machine. Disposition Disposition: Home, Self Care
[2022-12-01 11:50] LABS: Absolute Lymphocyte Count 1.83 X10^3/uL (0.83-4.51); Absolute Neutrophil Count 6.6 X10^3/uL (2.0-7.7); Basophil# 0.05 X10^3/uL; Basophil% 0.5 % (0-1); Eosinophil# 0.05 X10^3/uL; Eosinophils% 0.5 % (0-5); Hematocrit 35.9 % (37-47); Hemoglobin 11.1 g/dL (12.0-15.0); Lymphocyte # 1.83 X10^3/ul (0.83-4.51); Lymphocyte % 19.9 % (19-41); Mean Corp Hgb Conc 30.9 g/dL (32-36); Mean Corpuscular Hgb 25.3 pg (27.0-32.0); Mean Corpuscular Volume 81.8 fL (81-99); Mean Platelet Vol. 10.1 fl (6.2-12.0); Monocyte# 0.65 X10^3/uL; Monocyte% 7.1 % (0-10); NRBC Flagged by Analyzer 0 % (0-5); Neutrophil # 6.59 X10^3/uL (2.7-7.7); Neutrophil % 71.7 % (47-70); Platelet Count 373 K/mm3 (150-450); RBC Distribution Width CV 16.4 % (11.6-14.6); RBC Distribution Width SD 48.7 fl (35.1-43.9); Red Blood Count 4.39 M/mm3 (4.2-5.4); White Blood Count 9.2 K/mm3 (4.4-11.0)
[2022-12-01] MEDS: Lisinopril 20 MG Tablet PO (12:02)
[2022-12-01 12:05] LABS: Anion Gap 9 (5-15); BUN 18 mg/dL (7-18); BUN/Creat Ratio 17.1 RATIO (10-20); Chloride 107 mmol/L (98-107); Creatinine, Serum 1.05 mg/dL (0.55-1.02); EST Glomerular Filtration Rate 59 mL/min (>60); Est Glom Filt Rate - Afr Amer 71 mL/min (>60); Estimated Creatinine Clearance 55.35 ml/min; Glucose 139 mg/dL (74-106); Potassium 3.7 mmol/L (3.5-5.1); Sodium Level 141 mmol/L (136-145); Troponin-I HS 8 pg/mL (3.0-54.0)
[2022-12-01 12:46] VITALS: BP 133/78; PULSE 84; RESP 16; TEMP 36.6; O2SAT 100
--- NOTE | 2022-12-01 13:07 | CM.ED ---
SW Note Referral Source: Case Find Referral Reason: No Primary Care Physician (PCP) SW reviewed chart and noted that patient has no PCP. SW provided patient with list of [facility] and [facility] Physician List for reference. SW also provided patient with handout ?Where to go When?. No other issues or concerns voiced at this time. SW remains available for any additional needs. Plan: Provided patient with PCP information Gege TAY
== END 2022-12-01 12:46 | disposition home or self-care (01) ==
PROVIDERS: Emergency Provider Emergency Medicine; Visit Provider Emergency Medicine
DX: I10 Essential (primary) hypertension (principal); R07.89 Other chest pain; Z76.0 Encounter for issue of repeat prescription; Z79.899 Other long term (current) drug therapy; K21.9 Gastro-esophageal reflux disease without esophagitis
CPT/HCPCS: 71045; 80048; 84484; 85025; 93005; 99285

== ENCOUNTER 2023-07-16 09:42 | Inpatient (IN) | payer OTHER, MEDICAID, SELFPAY ==
[2023-07-16 09:43] VITALS: BP 166/91; PULSE 102; RESP 18; TEMP 36.2; O2SAT 98; BMI 42.5
--- NOTE | 2023-07-16 10:04 | CT_ITS ---
STUDY: CT ABDOMEN AND PELVIS WITHOUT CONTRAST REASON FOR EXAM: Female, 52 years old. 3 day history of left lower quadrant pain. RADIATION DOSAGE (If Supplied By Facility): CTDIvol = ( 23.83 ) mGy, DLP = ( 1291.82 ) mGycm TECHNIQUE: Transaxial images were obtained from the dome of the diaphragm to the symphysis pubis without oral contrast, and without intravenous contrast. Sagittal and coronal images were reconstructed. Individualized dose optimization techniques were used for this CT. COMPARISON: Comparison is made with prior study dated April 06, 2022. FINDINGS: The visualized lung bases are unremarkable. The visualized portions of the heart are within normal limits. Normal liver. There are surgical clips in the gallbladder fossa consistent with a prior cholecystectomy. Normal spleen. Normal pancreas. Normal bilateral adrenal glands. Normal right kidney. Marked degree of left hydronephrosis due to obstruction at the left ureteral pelvic junction with marked degree of atrophy of the left kidney. This has progressed in size as compared to prior study. There is a large hiatal hernia composed mostly of the fundus of the stomach. Normal small intestine. Normal colon. There is non-visualization of the appendix. There is scattered atherosclerotic calcification of the abdominal aorta, without a demonstrated aneurysm. Normal inferior vena cava. Normal retroperitoneum. Normal urinary bladder. Small amount of fluid is seen in the cul-de-sac. Normal abdominal wall. Normal osseous structures. CT/Abdomen/Pelvis without Cont IMPRESSION: Marked degree of the left-sided hydronephrosis with marked atrophy of the left kidney. This has progressed as compared to prior study. Status post cholecystectomy. Small amount of free fluid is seen in the cul-de-sac. Electronically Signed: Dioni Copeland MD at 11:27 EDT ,
--- NOTE | 2023-07-16 10:05 | ED.VIS.GI ---
HPI HPI - GI History of Present Illness Chief Complaint: Abd Pain Detail of Chief Complaint: Abdominal pain Informant: patient Narrative Narrative: Patient presents with abdominal pain x5 days. She describes the pain as sharp and left lower quadrant. Pain worse with movement. She had nausea and is vomited about 2 or 3 times since the pain started. She denies urinary symptoms. No history of kidney stones. She had subjective fever at home. Denies blood in her stool or black tarry stool. She does have history of diverticulitis. She had prior appendectomy and prior cholecystectomy. Prior similar symptoms: Yes PFSH PFSH Medical History Alcohol use Back pain Difficulty swallowing Gastric reflux Herniated nucleus pulposus, L5-S1 History of diverticulitis History of hiatal hernia History of pain when walking Hypertension Injury of back Marijuana use Wears glasses Home Medications lansoprazole 15 mg capsule,delayed release 15 mg PO DAILY GERD 10/31/21 [History Last Taken 07/15/23] Allergy/AdvReac Type Severity Reaction Status Date / Time acetaminophen [From Vicodin] Allergy vomit, SOB Verified 07/16/23 09:58 clarithromycin [From Biaxin] Allergy vomit, SOB Verified 07/16/23 09:58 hydrocodone [From Vicodin] Allergy vomit, SOB Verified 07/16/23 09:58 oxycodone Allergy Shortness Verified 07/16/23 09:58 of breath Family History (Updated 07/16/23 @ 15:[address] Jake Bryant MD) Other Cancer Diabetes Heart disease Surgical History History of carpal tunnel release of both wrists History of surgery Hx laparoscopic cholecystectomy Hx of appendectomy Hx of section Hx of shoulder surgery Hx of tonsillectomy Hx of tubal ligation Social History Smoking Status: Never smoker ROS ROS ED Review of Systems ROS Unobtainable: other Constitutional Constitutional ED: Reports lethargy; Denies chills, fever(s), sweats or weight loss Eyes Eyes: Denies blurry vision, change in vision or diplopia ENT ENT ED: Denies rhinorrhea or sore throat Cardiovascular Cardiovascular: Denies chest pain, orthopnea or racing heartbeat Respiratory/Chest Respiratory/Chest: Denies cough, dyspnea, dyspnea on exertion, orthopnea or sputum Gastrointestinal Gastrointestinal: Reports abdominal pain, nausea and vomiting; Denies diarrhea Genitourinary Genitourinary ED: Denies dysuria, hematuria or urinary frequency Musculoskeletal Musculoskeletal: Denies arthralgias, back pain, myalgias or neck pain Integumentary Denies abscess, Abrasions or rash Neurologic Neurologic: Denies headache(s) or weakness Psychiatric Psychiatric: Denies anxiety, depression or suicidal thoughts Endocrine Endocrinology: Denies polydipsia, polyphagia or polyuria Hematologic/Lymphatic Hematologic/Lymphatic: Denies easy bleeding, easy bruising or lymphadenopathy Allergic/Immunologic Allergic/Immunologic ED: Denies mouth swelling, tongue swelling or urticaria EXAM Physical Exam Const Vital Signs: 07/16/23 09:43 07/16/23 11:39 Temperature 97.1 F L Temperature Source Temporal Pulse Rate 102 H Respiratory Rate 18 16 Blood Pressure 166/91 H 174/88 H Blood Pressure Mean 116 116 Pulse Ox 98 Oxygen Delivery Method Room Air Positive well nourished and well developed General Appearance ED: well developed and NAD HEENT Reports TM's clear and moist mucous membranes normocephalic and atraumatic; Negative for trauma or tenderness Tympanic Membrane ED: Yes TM's clear Eyes PERRL and EOMs intact bilaterally General Eye ED: Negative for pale conjunctiva or scleral icterus Neck no lymphadenopathy, supple and no JVD General: Negative for tenderness Chest Wall inspection of chest normal and palpation of chest normal Chest: Negative for tenderness Resp normal respiratory effort and clear to auscultation bilaterally Effort and Inspection: Negative for respiratory distress or pain with movement Auscultation: Negative for rhonchi, wheezes or diminished lung sounds Cardio regular rate, regular rhythm, S1 normal heart sound, S2 normal heart sound and no murmurs Peripheral Pulses: pulses 2+ throughout GI normal to inspection, nondistended, normoactive bowel sounds, soft to palpation, non-distended and no masses GI Narrative: Tenderness to left lower quadrant with guarding. There is no rebound, rigidity, or. Signs. No mass palpated. No CVA tenderness on the left. Back/Spine no CVA tenderness and no thoracic nor lumbar tenderness Extremity normal to inspection General Extremety ED: Negative for edema General Extremity: Negative for edema Neuro oriented x3, CN's II-XII intact bilaterally, no sensory deficits noted and gait normal Sensorium / Orientation: awake, alert, oriented to person, oriented to place and oriented to time Motor Exam: strength 5/5 throughout and strength abnormal Psych mental status grossly normal Skin no rashes or lesions noted and no wounds MDM MDM MDM Narrative Medical decision making narrative: Patient with left lower abdomen pain x5 days. In the differential would be kidney stone versus diverticulitis versus bowel obstruction versus ischemic bowel versus other etiology. IV line established. CBC with differential obtained showed a white count of 15.6 with hemoglobin of 10 and hematocrit of 348. Chemistries unremarkable. Lactate was normal 1.0. Urinalysis was normal. CT scan of the abdomen pelvis without contrast showed severe left-sided hydronephrosis due to obstruction at UPJ which is progressed from prior study from 2021. I did discuss case with urology Dr. Burrows given that patient continues to have ongoing pain. He recommended admitting to medicine for pain control and he will see patient to evaluate for possible stent placement or other surgical intervention. Hospitalist will discuss case with radiologist as there is some concern for diverticulitis clinically. Hospitalist will cover patient with antibiotics after discussion with radiologist if he feels it is warranted. Patient will be admitted to [facility] bed. Lab Data Attestation: I reviewed the patient's lab results. Labs: Laboratory Results - last 24 hr 07/16/23 10:20 WBC 15.6 H RBC 4.64 Hgb 10.4 L Hct 34.8 L MCV 75.0 L MCH 22.4 L MCHC 29.9 L RDW Std Deviation 50.4 H RDW Coeff of [place] 19.2 H Plt Count 348 MPV 9.5 Immature Gran % (Auto) 0.400 Neut % (Auto) 78.5 H Lymph % (Auto) 11.7 L [place] % (Auto) 8.6 Eos % (Auto) 0.5 Baso % (Auto) 0.3 Absolute Neuts (auto) 12.2 H Absolute Lymphs (auto) 1.82 Nucleated RBC % 0 Sodium 139 Potassium 3.7 Chloride 108 H Carbon Dioxide 24.0 Anion Gap 7 BUN 12 Creatinine 0.80 Estim Creat Clear Calc 72.65 Est GFR (MDRD) Af Amer 97 Est GFR (MDRD) Non-Af 80 BUN/Creatinine Ratio 14.9 Glucose 129 H Lactic Acid 1.0 Calcium 9.1 Urine Color Yellow Urine Clarity Sl. Cloudy Urine pH 6.0 Ur Specific [place] 1.020 Urine Protein 15 H Urine Glucose (UA) Normal Urine Ketones Negative Urine Occult Blood Negative Urine Nitrite Negative Urine Bilirubin Negative Urine Urobilinogen Normal Ur Leukocyte Esterase 25 H Urine RBC 0 SEEN Urine WBC 0-5 SEEN Ur Squamous Epith Cells 5-10 SEEN Urine Bacteria 1+ Urine Mucus 0 SEEN Radiography Diagnostic Testing: Clinical Impression(s) from Imaging Studies Abdomen/Pelvis CT 07/16/23 10:04 IMPRESSION: Marked degree of the left-sided hydronephrosis with marked atrophy of the left kidney. This has progressed as compared to prior study. Status post cholecystectomy. Small amount of free fluid is seen in the cul-de-sac. Electronically Signed: Dioni Copeland MD at 11:27 EDT , ADDENDUM: 07/16/23 1406 IMPRESSION: undefined Discharge Plan Dx/Rx/DC Orders Clinical Impression: Hydronephrosis, Abdominal pain, Hypertension Disposition Disposition: Acute Care Hospital [facility] Discharge Date/Time: 07/16/23 12:50
[2023-07-16] MEDS: Ondansetron 4 MG/2 ML Vial IV ×2 (10:17→21:36)
[2023-07-16] MEDS: Morphine 4 MG/ML Syringe IV ×2 (10:17→12:21)
[2023-07-16 10:26] LABS: Mucous, Urine 0 SEEN /hpf (<or=2+); Red Blood Cells-Urine 0 SEEN /hpf (0-5)
[2023-07-16 10:30] LABS: Absolute Lymphocyte Count 1.82 X10^3/uL (0.83-4.51); Absolute Neutrophil Count 12.2 X10^3/uL (2.0-7.7); Basophil# 0.04 X10^3/uL; Basophil% 0.3 % (0-1); Eosinophil# 0.07 X10^3/uL; Eosinophils% 0.5 % (0-5); Hematocrit 34.8 % (37-47); Hemoglobin 10.4 g/dL (12.0-15.0); Lymphocyte # 1.82 X10^3/ul (0.83-4.51); Lymphocyte % 11.7 % (19-41); Mean Corp Hgb Conc 29.9 g/dL (32-36); Mean Corpuscular Hgb 22.4 pg (27.0-32.0); Mean Platelet Vol. 9.5 fl (6.2-12.0); Monocyte# 1.34 X10^3/uL; Monocyte% 8.6 % (0-10); NRBC Flagged by Analyzer 0 % (0-5); Neutrophil # 12.22 X10^3/uL (2.7-7.7); Neutrophil % 78.5 % (47-70); Platelet Count 348 K/mm3 (150-450); RBC Distribution Width CV 19.2 % (11.6-14.6); RBC Distribution Width SD 50.4 fl (35.1-43.9); Red Blood Count 4.64 M/mm3 (4.2-5.4); White Blood Count 15.6 K/mm3 (4.4-11.0)
[2023-07-16 10:38] LABS: Color, Urine Yellow (Yellow); Glucose, Dipstick Normal (Normal); Ketone-Dipstick Negative (Negative); Leukocyte Esterase-Dipstick 25 /ul (Negative); Nitrite-Dipstick Negative (Negative); Occult Blood-Urine Negative /ul (Negative); Protein-Dipstick 15 mg/dl (Negative); Urine Bilirubin Dipstick Negative (Negative); Urine Clarity Sl. Cloudy (Clear); Urine Urobilinogen Normal (Normal)
[2023-07-16 10:45] LABS: Anion Gap 7 (5-15); BUN 12 mg/dL (7-18); BUN/Creat Ratio 14.9 RATIO (10-20); Calcium,Total 9.1 mg/dL (8.5-10.1); Chloride 108 mmol/L (98-107); EST Glomerular Filtration Rate 80 mL/min (>60); Est Glom Filt Rate - Afr Amer 97 mL/min (>60); Estimated Creatinine Clearance 72.65 ml/min; Glucose 129 mg/dL (74-106); Potassium 3.7 mmol/L (3.5-5.1); Sodium Level 139 mmol/L (136-145)
[2023-07-16 11:03] LABS: Bacteria 1+ /hpf (None Seen); Squamous Epithelial Cells - UA 5-10 SEEN /hpf (5-10); White Blood Cells 0-5 SEEN /hpf (0-5)
[2023-07-16] MEDS: 0.9% Normal Saline (1000mL) 1,000 ML 125 ML IV (11:38)
[2023-07-16 11:39] VITALS: BP 174/88; RESP 16
[2023-07-16 12:48] VITALS: BP 158/78; PULSE 93; RESP 16; TEMP 37.1; O2SAT 95
--- NOTE | 2023-07-16 12:56 | NURSING ---
Caesar LOWE ABD PAIN, HYDRONEPHROSIS, HYPERTENSION
[2023-07-16 13:00] VITALS: BP 147/79; PULSE 88; RESP 18; TEMP 37.2; O2SAT 99
[2023-07-16 13:09] VITALS: BMI 42.9
[2023-07-16] MEDS: Morphine 2 MG/ML Syringe IV ×3 (15:04→21:27)
[2023-07-16] MEDS: metroNIDAZOLE 500 MG/100 ML BAG 100 MG IV ×2 (15:29→21:36)
--- NOTE | 2023-07-16 15:47 | HP.PCM.HOS_ITS ---
HPI - General General Date of Admission: 07/16/23 HPI Narrative PIERO XIE, is a 52 F who presents to the hospital with left-sided abdominal pain since . She is also been having some nausea as well as vomiting. She has had this pain before with previous episodes of diverticulitis and apparently diverticulitis runs in the family with issues with perforations and colostomies with other family members. She had another episode of diverticulitis about a year ago at that time she had a CT scan which demonstrated a left hydronephrosis with significant left renal atrophy. This has been redemonstrated with larger hydronephrosis on this admission. The case was discussed with urology by the ED physician and they will see in consult. No significant fevers or chills but significant abdominal pain. CT scan does show some left descending colon stranding consistent with diverticulitis. [facility] Medical History Alcohol use Back pain Difficulty swallowing Gastric reflux Herniated nucleus pulposus, L5-S1 History of diverticulitis History of hiatal hernia History of pain when walking Hypertension Injury of back Marijuana use Wears glasses Home Medications lansoprazole 15 mg capsule,delayed release 15 mg PO DAILY GERD 10/31/21 [History Last Taken 07/15/23] Allergy/AdvReac Type Severity Reaction Status Date / Time acetaminophen [From Vicodin] Allergy vomit, SOB Verified 07/16/23 09:58 clarithromycin [From Biaxin] Allergy vomit, SOB Verified 07/16/23 09:58 hydrocodone [From Vicodin] Allergy vomit, SOB Verified 07/16/23 09:58 oxycodone Allergy Shortness Verified 07/16/23 09:58 of breath Family History (Updated 07/16/23 @ 15:[address] Jake Bryant MD) Other Cancer Diabetes Heart disease Surgical History History of carpal tunnel release of both wrists History of surgery Hx laparoscopic cholecystectomy Hx of appendectomy Hx of section Hx of shoulder surgery Hx of tonsillectomy Hx of tubal ligation Social History Smoking Status: Never smoker ROS Constitutional Constitutional: Denies chills, fatigue, fever(s) or malaise Eyes Eyes: Denies blurry vision ENT HEENT: Denies headache(s) or nasal discharge Cardiovascular Cardiovascular: Denies chest pain, dyspnea on exertion or syncope Respiratory/Chest Respiratory/Chest: Denies cough, shortness of breath at rest or shortness of breath with exertion Gastrointestinal Gastrointestinal: Reports abdominal pain, nausea and vomiting; Denies constipation or diarrhea Genitourinary Genitourinary: Denies dysuria Neurologic Neurologic: Denies focal weakness, numbness or tremor(s) Psychiatric Psychiatric: Denies anxiety or depression Vital Signs Vital Signs Vital Signs: 07/16/23 09:43 07/16/23 11:39 07/16/23 12:48 Temperature 97.1 F L 98.8 F Temperature Source Temporal Oral Pulse Rate 102 H 93 Respiratory Rate 18 16 16 Blood Pressure 166/91 H 174/88 H 158/78 H Blood Pressure Mean 116 116 104 Blood Pressure Source Blood Pressure Position Blood Pressure Location Pulse Ox 98 95 Oxygen Delivery Method Room Air Room Air 07/16/23 13:00 07/16/23 13:09 Temperature 98.9 F Temperature Source Oral Pulse Rate 88 Respiratory Rate 18 Blood Pressure 147/79 H Blood Pressure Mean 101 Blood Pressure Source Monitor Blood Pressure Position Supine Blood Pressure Location Right Arm Pulse Ox 99 Oxygen Delivery Method Room Air Room Air Weight Weight: 250 lb Body Mass Index (BMI) 42.9 Physical Exam Narrative General: Alert, Oriented x3, Cooperative, No apparent distress HEENT: Atraumatic, PERRLA, EOMI, Normocephalic Oral: Moist Mucosa Neck: Supple, No JVD Lungs: Diminished, Normal air movement, No rhonchi, No wheeze, No rales Cardiovascular: Regular rate, Regular Rhythm, Normal S1, Normal S2, No murmurs Abdomen: Soft, mild tender left lower quadrant, Non-Distended, No Hepato-splenomegaly Extremities: No edema, Capillary Refill Less than 3 Seconds Skin: No rashes, No breakdown Musculoskeletal: No Tenderness to Palpation of Joints or Extremities Neurological: Cranial nerves II-XII grossly intact, Motor Exam 5/5 strength throughout, Sensory exam intact to light touch and pain Psych/Mental Status: Normal Affect, Appropriate Results Lab / Micro Data 07/16/23 10:20 07/16/23 10:20 Labs: Laboratory Results - last 24 hr 07/16/23 10:20: WBC 15.6 H, RBC 4.64, Hgb 10.4 L, Hct 34.8 L, MCV 75.0 L, MCH 22.4 L, MCHC 29.9 L, RDW Std Deviation 50.4 H, RDW Coeff of Pierce 19.2 H, Plt Count 348, MPV 9.5, Immature Gran % (Auto) 0.400, Neut % (Auto) 78.5 H, Lymph % (Auto) 11.7 L, [place] % (Auto) 8.6, Eos % (Auto) 0.5, Baso % (Auto) 0.3, Absolute Neuts (auto) 12.2 H, Absolute Lymphs (auto) 1.82, Nucleated RBC % 0, Sodium 139, Potassium 3.7, Chloride 108 H, Carbon Dioxide 24.0, Anion Gap 7, BUN 12, Creatinine 0.80, Estim Creat Clear Calc 72.65, Est GFR (MDRD) Af Amer 97, Est GFR (MDRD) Non-Af 80, BUN/Creatinine Ratio 14.9, Glucose 129 H, Lactic Acid 1.0, Calcium 9.1, Urine Color Yellow, Urine Clarity Sl. Cloudy, Urine pH 6.0, Ur Specific [place] 1.020, Urine Protein 15 H, Urine Glucose (UA) Normal, Urine Ketones Negative, Urine Occult Blood Negative, Urine Nitrite Negative, Urine Bilirubin Negative, Urine Urobilinogen Normal, Ur Leukocyte Esterase 25 H, Urine RBC 0 SEEN, Urine WBC 0-5 SEEN, Ur Squamous Epith Cells 5-10 SEEN, Urine Bacteria 1+, Urine Mucus 0 SEEN Radiology Impression Abdomen/Pelvis CT 07/16/23 10:04 IMPRESSION: Marked degree of the left-sided hydronephrosis with marked atrophy of the left kidney. This has progressed as compared to prior study. Status post cholecystectomy. Small amount of free fluid is seen in the cul-de-sac. Electronically Signed: Dioni Copeland MD at 11:27 EDT , ADDENDUM: 07/16/23 1315 IMPRESSION: undefined Assessment & Plan Assessment/Plan (1) Hydronephrosis: (2) Acute diverticulitis: PLAN: Plan 1. Acute diverticulitis ? Continue with Cipro and Flagyl ? N.p.o. ? IV morphine as she gets short of breath with oxycodone but does not have reaction to morphine ? Given her episodes of abdominal pain with diverticulitis may be beneficial see general surgery as an outpatient on discharge 2. Left hydronephrosis with renal atrophy ? No WENDY, will continue with IV fluids as she is n.p.o. ? We will consult urology for evaluation of this hydronephrosis, she says it is never been evaluated before 3. GERD ? Stable ? Continue with PPI DVT: SCDs 75 minutes was spent on direct patient care, including documentation as well as chart review and collaboration with colleagues Charges/Coding Visit Charges Inpatient E&M: 56837 Init Hosp L3
[2023-07-16] MEDS: Ciprofloxacin 400 MG/200 ML BAG 200 MG IV (16:42)
--- NOTE | 2023-07-16 17:44 | PCM.CONS.U ---
HPI Consult Data Date of Consult: 07/16/23 HPI Narrative Reason for Consultation: Severe left hydronephrosis HPI Narrative: PIERO XIE, is a 52 F who presents with worsening severe left hydronephrosis looks like she has a history of UPJ obstruction there was a left hydronephrotic kidney several years ago on the CAT scan repeat CAT scan today demonstrates severe worsening and she came in with flank pain on the left side is admitted to the hospital for further care we will make her n.p.o. at midnight talk to the patient about putting a stent on the left side and then want to get a renal scan to evaluate function and she may either consider repair or removal depending on the renal scan. [facility] Medical History Alcohol use Back pain Difficulty swallowing Gastric reflux Herniated nucleus pulposus, L5-S1 History of diverticulitis History of hiatal hernia History of pain when walking Hypertension Injury of back Marijuana use Wears glasses Home Medications lansoprazole 15 mg capsule,delayed release 15 mg PO DAILY GERD 10/31/21 [History Last Taken 07/15/23] Allergy/AdvReac Type Severity Reaction Status Date / Time acetaminophen [From Vicodin] Allergy vomit, SOB Verified 07/16/23 09:58 clarithromycin [From Biaxin] Allergy vomit, SOB Verified 07/16/23 09:58 hydrocodone [From Vicodin] Allergy vomit, SOB Verified 07/16/23 09:58 oxycodone Allergy Shortness Verified 07/16/23 09:58 of breath Family History (Updated 07/16/23 @ 15:[address] Jake Bryant MD) Other Cancer Diabetes Heart disease Surgical History History of carpal tunnel release of both wrists History of surgery Hx laparoscopic cholecystectomy Hx of appendectomy Hx of section Hx of shoulder surgery Hx of tonsillectomy Hx of tubal ligation Social History Smoking Status: Never smoker Lab / Micro Data 07/16/23 10:20 07/16/23 10:20 Labs: Laboratory Results - last 24 hr 07/16/23 10:20: WBC 15.6 H, RBC 4.64, Hgb 10.4 L, Hct 34.8 L, MCV 75.0 L, MCH 22.4 L, MCHC 29.9 L, RDW Std Deviation 50.4 H, RDW Coeff of [place] 19.2 H, Plt Count 348, MPV 9.5, Immature Gran % (Auto) 0.400, Neut % (Auto) 78.5 H, Lymph % (Auto) 11.7 L, [place] % (Auto) 8.6, Eos % (Auto) 0.5, Baso % (Auto) 0.3, Absolute Neuts (auto) 12.2 H, Absolute Lymphs (auto) 1.82, Nucleated RBC % 0, Sodium 139, Potassium 3.7, Chloride 108 H, Carbon Dioxide 24.0, Anion Gap 7, BUN 12, Creatinine 0.80, Estim Creat Clear Calc 72.65, Est GFR (MDRD) Af Amer 97, Est GFR (MDRD) Non-Af 80, BUN/Creatinine Ratio 14.9, Glucose 129 H, Lactic Acid 1.0, Calcium 9.1, Urine Color Yellow, Urine Clarity Sl. Cloudy, Urine pH 6.0, Ur Specific [place] 1.020, Urine Protein 15 H, Urine Glucose (UA) Normal, Urine Ketones Negative, Urine Occult Blood Negative, Urine Nitrite Negative, Urine Bilirubin Negative, Urine Urobilinogen Normal, Ur Leukocyte Esterase 25 H, Urine RBC 0 SEEN, Urine WBC 0-5 SEEN, Ur Squamous Epith Cells 5-10 SEEN, Urine Bacteria 1+, Urine Mucus 0 SEEN Radiology Impression Abdomen/Pelvis CT 07/16/23 10:04 IMPRESSION: Marked degree of the left-sided hydronephrosis with marked atrophy of the left kidney. This has progressed as compared to prior study. Status post cholecystectomy. Small amount of free fluid is seen in the cul-de-sac. Electronically Signed: Dioni Copeland MD at 11:27 EDT , ADDENDUM: 07/16/23 1406 IMPRESSION: undefined
[2023-07-16 21:23] VITALS: BP 122/63; PULSE 90; RESP 14; TEMP 36.7; O2SAT 96
[2023-07-17] VITALS (11 sets, daily range): BP systolic 125–149; BP diastolic 60–82; PULSE 75–86; RESP 14–18; TEMP 36.5–37.2; O2SAT 92–100; BMI 42.9
[2023-07-17] MEDS: Morphine 2 MG/ML Syringe IV ×3 (00:19→07:16)
[2023-07-17] MEDS: 0.9% Normal Saline (1000mL) 1,000 ML 125 ML IV ×2 (00:19→09:36)
[2023-07-17] MEDS: Ciprofloxacin 400 MG/200 ML BAG 200 MG IV ×3 (00:19→22:28)
[2023-07-17] MEDS: metroNIDAZOLE 500 MG/100 ML BAG 100 MG IV ×3 (05:32→21:02)
--- NOTE | 2023-07-17 05:55 | EKG12_ITS ---
Test Reason : pre op Blood Pressure : / mmHG Vent. Rate : 084 BPM Atrial Rate : 084 BPM P-R Int : 172 ms QRS Dur : 092 ms QT Int : 376 ms P-R-T Axes : 062 031 069 degrees QTc Int : 444 ms Normal sinus rhythm Nonspecific T wave abnormality Abnormal ECG When compared with ECG of 01-DEC-2022 11:34, No significant change was found Confirmed by HARRY FISCHER, MAGDIEL ([id number]), slot editor MINDA SCHULER ([id number]) on 08/14/2023 1:24:47 PM Referred By: Manny Confirmed By:MAGDIEL MCDONALD MD
[2023-07-17 06:50] LABS: Absolute Lymphocyte Count 1.45 X10^3/uL (0.83-4.51); Absolute Neutrophil Count 8.5 X10^3/uL (2.0-7.7); Basophil# 0.04 X10^3/uL; Basophil% 0.4 % (0-1); Eosinophils% 0.9 % (0-5); Hemoglobin 8.7 g/dL (12.0-15.0); Lymphocyte # 1.45 X10^3/ul (0.83-4.51); Mean Corpuscular Hgb 22.4 pg (27.0-32.0); Mean Corpuscular Volume 77.1 fL (81-99); Mean Platelet Vol. 9.4 fl (6.2-12.0); Monocyte# 1.01 X10^3/uL; Monocyte% 9.1 % (0-10); NRBC Flagged by Analyzer 0 % (0-5); Neutrophil # 8.46 X10^3/uL (2.7-7.7); Neutrophil % 76.1 % (47-70); Platelet Count 272 K/mm3 (150-450); RBC Distribution Width CV 18.7 % (11.6-14.6); RBC Distribution Width SD 51.8 fl (35.1-43.9); Red Blood Count 3.89 M/mm3 (4.2-5.4); White Blood Count 11.1 K/mm3 (4.4-11.0)
[2023-07-17 07:14] LABS: Anion Gap 5 (5-15); BUN 7 mg/dL (7-18); BUN/Creat Ratio 11.3 RATIO (10-20); Chloride 109 mmol/L (98-107); Creatinine, Serum 0.62 mg/dL (0.55-1.02); EST Glomerular Filtration Rate 108 mL/min (>60); Est Glom Filt Rate - Afr Amer 130 mL/min (>60); Estimated Creatinine Clearance 93.74 ml/min; Glucose 128 mg/dL (74-106); Potassium 3.5 mmol/L (3.5-5.1); Sodium Level 139 mmol/L (136-145)
[2023-07-17] MEDS: HYDROmorphone 0.5 MG/0.5 ML SYRINGE IV ×4 (09:36→21:02)
[2023-07-17] MEDS: 0.9% Normal Saline (1000mL) 1,000 ML 15 ML IV (11:09)
--- NOTE | 2023-07-17 11:47 | PN.HOSP_ITS ---
Subjective Subjective Can give more abdominal pain today on the left could be due to her hydronephrosis specially since she has been getting IV fluids for being n.p.o. for her diverticulitis Objective Data Objective Data Vital Signs: Vital Signs Temp Pulse Resp BP Pulse Ox O2 Del Method 98.3 F 82 14 145/72 H 95 Room Air 07/17/23 09:00 07/17/23 09:00 07/17/23 09:00 07/17/23 09:00 07/17/23 09:00 07/17/23 09:00 Oxygen Delivery Method Room Air Weight: 250 lb Body Mass Index (BMI) 42.9 Intake & Output: Intake and Output for Last 24 Hours 07/16/23 07/17/23 07/18/23 03:59 03:59 03:59 Intake Total 1600 / 1600 1300 / 1300 Balance 1600 / 1600 1300 / 1300 Lab / Micro Data 07/17/23 06:30 07/17/23 06:30 Labs: Laboratory Results - last 24 hr 07/17/23 06:30: WBC 11.1 H, RBC 3.89 L, Hgb 8.7 L, Hct 30.0 L, MCV 77.1 L, MCH 22.4 L, MCHC 29.0 L, RDW Std Deviation 51.8 H, RDW Coeff of Pierce 18.7 H, Plt Count 272, MPV 9.4, Immature Gran % (Auto) 0.500, Neut % (Auto) 76.1 H, Lymph % (Auto) 13.0 L, [place] % (Auto) 9.1, Eos % (Auto) 0.9, Baso % (Auto) 0.4, Absolute Neuts (auto) 8.5 H, Absolute Lymphs (auto) 1.45, Nucleated RBC % 0, Sodium 139, Potassium 3.5, Chloride 109 H, Carbon Dioxide 25.0, Anion Gap 5, BUN 7, Creatinine 0.62, Estim Creat Clear Calc 93.74, Est GFR (MDRD) Af Amer 130, Est GFR (MDRD) Non-Af 108, BUN/Creatinine Ratio 11.3, Glucose 128 H, Calcium 8.0 L Radiography Diagnostic Testing: Radiology Impression Abdomen/Pelvis CT 07/16/23 10:04 IMPRESSION: Marked degree of the left-sided hydronephrosis with marked atrophy of the left kidney. This has progressed as compared to prior study. Status post cholecystectomy. Small amount of free fluid is seen in the cul-de-sac. Electronically Signed: Dioni Copeland MD at 11:27 EDT , ADDENDUM: 07/16/23 1406 IMPRESSION: undefined Physical Exam Narrative General: Alert, Oriented x3, Cooperative, No apparent distress HEENT: Atraumatic, PERRLA, EOMI, Normocephalic Oral: Moist Mucosa Neck: Supple, No JVD Lungs: Diminished, Normal air movement, No rhonchi, No wheeze, No rales Cardiovascular: Regular rate, Regular Rhythm, Normal S1, Normal S2, No murmurs Abdomen: Soft, mild tender left lower quadrant, Non-Distended, No Hepato- splenomegaly Extremities: No edema, Capillary Refill Less than 3 Seconds Skin: No rashes, No breakdown Musculoskeletal: No Tenderness to Palpation of Joints or Extremities Neurological: Cranial nerves II-XII grossly intact, Motor Exam 5/5 strength throughout, Sensory exam intact to light touch and pain Psych/Mental Status: Normal Affect, Appropriate Assessment & Plan Assessment/Plan (1) Hydronephrosis: (2) Acute diverticulitis: PLAN: Plan 1. Acute diverticulitis ? Continue with Cipro and Flagyl ? N.p.o. ? We will transition to Dilaudid as she says that she is beginning a headache from morphine ? Given her episodes of abdominal pain with diverticulitis may be beneficial see general surgery as an outpatient on discharge 2. Left hydronephrosis with renal atrophy ? No WENDY, will continue with IV fluids as she is n.p.o. ? Plan for cystoscopy and possible stent urology feels that she may need to have a nephrectomy when she stabilizes 3. GERD ? Stable ? Continue with PPI DVT: SCDs Charges/Coding Visit Charges Inpatient E&M: 61048 Subs Hosp L2
--- NOTE | 2023-07-17 12:17 | PCM.OPRPT ---
Report of Operation Date of Procedure: 07/17/23 Pre-Operative Diagnosis: UPJ obstruction left side dilated left renal pelvis very large Post-Operative Diagnosis: Same Surgery/Procedure Performed:: Cystoscopy left stent placement Description of Surgical Findings:: Patient was taken back to the operating room at a smooth induction of general anesthesia she was placed in dorsal lithotomy position. The urethral genital area prepped and draped in usual sterile fashion when the bladder with a 21 [place] rigid cystourethroscope the bladder was normal I then cannulated the left ureteral orifice I advanced a wire up into the kidney we can see the wire go all the way up to the kidney and then it was in his very large renal pelvis and over the wire I advanced a 7 [place]ian by 28 cm stent once the stent was in good position then pulled the wire and the stent coiled in the bladder and there was up in the kidney in the bladder and draining the kidney. Surgeon: Chad Burrows Type of Anesthesia: MAC Drains: stent 7 fr 28cm Admit VTE Documentation VTE Present on Admission: No VTE Mechan Device Prophylaxis: SCD's VTE Pharm Prophylaxis ordered?: No
[2023-07-17] MEDS: Ondansetron 4 MG/2 ML Vial IV (13:23)
--- NOTE | 2023-07-17 14:00 | CASEMGMT ---
IVAN KUHN Assessment: Face to Face with pt for initial transition planning/care coordination assessment. RN HATTIE introduced self and role at [facility], pt voices understanding and consents to assessment. Pt is A/O x4 and answers all questions appropriately at this time. Pt lying in bed in no distress. Care providers, pharmacy, and demographics verified/updated. Admitting Dx: left hydronephrosis with abd pain PCP:Pt denies, provided pt with a local healthcare directory pamphlet Specialists:Pt denies Preferred Pharmacy:[facility] Insurance: Jonas Ashton Prescription Benefit: yes LNOK: Arnav Hernandes, ; Dominick Friedman, son Living Arrangements: Pt lives with , dtr, son in law and 4 grandchildren in a two story home with no steps to enter. Pt reports she is I in ADL's and denies concerns at home. Transportation: Pt drives self and denies concerns with transportation. DME/HHC/SNF: Pt has a FWW but does not use. Pt denies hx of HHC or SNF stays. Pt states no concerns with going home at time of dc. Pt states no further concerns/needs. CM to follow. Advised pt to ask CM if any further question/concerns/needs arise, voices understanding. Pt Goal: Home Plan: Home
[2023-07-17] MEDS: 0.9% Normal Saline (1000mL) 1,000 ML 100 ML IV (17:14)
[2023-07-18] MEDS: HYDROmorphone 0.5 MG/0.5 ML SYRINGE IV ×2 (00:07→03:17)
[2023-07-18 03:24] VITALS: BP 161/91; PULSE 74; RESP 18; TEMP 36.8; O2SAT 97
[2023-07-18] MEDS: 0.9% Normal Saline (1000mL) 1,000 ML 100 ML IV ×2 (03:24→14:29)
[2023-07-18] MEDS: Ondansetron 4 MG/2 ML Vial IV ×2 (03:27→18:42)
[2023-07-18] MEDS: HYDROmorphone 1 MG/ML Syringe IV ×6 (04:11→21:33)
[2023-07-18] MEDS: metroNIDAZOLE 500 MG/100 ML BAG 100 MG IV ×3 (06:55→23:11)
[2023-07-18 06:58] VITALS: BP 165/67
[2023-07-18 07:40] VITALS: BP 170/91; PULSE 76; RESP 16; TEMP 36.6; O2SAT 99
[2023-07-18 07:40] LABS: Absolute Lymphocyte Count 1.42 X10^3/uL (0.83-4.51); Absolute Neutrophil Count 5.5 X10^3/uL (2.0-7.7); Basophil# 0.02 X10^3/uL; Basophil% 0.3 % (0-1); Eosinophil# 0.12 X10^3/uL; Eosinophils% 1.5 % (0-5); Hemoglobin 8.2 g/dL (12.0-15.0); Lymphocyte # 1.42 X10^3/ul (0.83-4.51); Lymphocyte % 18.3 % (19-41); Mean Corp Hgb Conc 29.3 g/dL (32-36); Mean Corpuscular Hgb 22.9 pg (27.0-32.0); Mean Corpuscular Volume 78.2 fL (81-99); Mean Platelet Vol. 9.8 fl (6.2-12.0); Monocyte# 0.69 X10^3/uL; Monocyte% 8.9 % (0-10); NRBC Flagged by Analyzer 0 % (0-5); Neutrophil # 5.49 X10^3/uL (2.7-7.7); Neutrophil % 70.7 % (47-70); Platelet Count 252 K/mm3 (150-450); RBC Distribution Width CV 18.6 % (11.6-14.6); RBC Distribution Width SD 53.1 fl (35.1-43.9); Red Blood Count 3.58 M/mm3 (4.2-5.4); White Blood Count 7.8 K/mm3 (4.4-11.0)
[2023-07-18 08:11] LABS: Anion Gap 4 (5-15); BUN 7 mg/dL (7-18); BUN/Creat Ratio 11.5 RATIO (10-20); Calcium,Total 8.2 mg/dL (8.5-10.1); Chloride 110 mmol/L (98-107); Creatinine, Serum 0.61 mg/dL (0.55-1.02); EST Glomerular Filtration Rate 110 mL/min (>60); Est Glom Filt Rate - Afr Amer 134 mL/min (>60); Estimated Creatinine Clearance 95.28 ml/min; Glucose 115 mg/dL (74-106); Potassium 3.5 mmol/L (3.5-5.1); Sodium Level 140 mmol/L (136-145)
--- NOTE | 2023-07-18 10:04 | PN.HOSP_ITS ---
Subjective Subjective Still with left lower quadrant abdominal pain, it is a little bit better but she has no interest in eating today Objective Data Objective Data Vital Signs: Vital Signs Temp Pulse Resp BP Pulse Ox O2 Del Method 97.8 F 76 16 170/91 H 99 Room Air 07/18/23 07:40 07/18/23 07:40 07/18/23 07:40 07/18/23 07:40 07/18/23 07:40 07/18/23 07:40 Oxygen Delivery Method Room Air Weight: 250 lb Body Mass Index (BMI) 42.9 Intake & Output: Intake and Output for Last 24 Hours 07/17/23 07/18/23 07/19/23 03:59 03:59 03:59 Intake Total 1600 / 1600 3455.83 / 3455.83 Output Total 450 / 450 Balance 1600 / 1600 3005.83 / 3005.83 Lab / Micro Data 07/18/23 06:40 07/18/23 06:40 Labs: Laboratory Results - last 24 hr 07/18/23 06:40: WBC 7.8, RBC 3.58 L, Hgb 8.2 L, Hct 28.0 L, MCV 78.2 L, MCH 22.9 L, MCHC 29.3 L, RDW Std Deviation 53.1 H, RDW Coeff of [place] 18.6 H, Plt Count 252, MPV 9.8, Immature Gran % (Auto) 0.300, Neut % (Auto) 70.7 H, Lymph % (Auto) 18.3 L, [place] % (Auto) 8.9, Eos % (Auto) 1.5, Baso % (Auto) 0.3, Absolute Neuts (auto) 5.5, Absolute Lymphs (auto) 1.42, Nucleated RBC % 0, Sodium 140, Potassium 3.5, Chloride 110 H, Carbon Dioxide 26.0, Anion Gap 4 L, BUN 7, Creatinine 0.61, Estim Creat Clear Calc 95.28, Est GFR (MDRD) Af Amer 134, Est GFR (MDRD) Non-Af 110, BUN/Creatinine Ratio 11.5, Glucose 115 H, Calcium 8.2 L Physical Exam Narrative General: Alert, Oriented x3, Cooperative, No apparent distress HEENT: Atraumatic, PERRLA, EOMI, Normocephalic Oral: Moist Mucosa Neck: Supple, No JVD Lungs: Diminished, Normal air movement, No rhonchi, No wheeze, No rales Cardiovascular: Regular rate, Regular Rhythm, Normal S1, Normal S2, No murmurs Abdomen: Soft, mild tender left lower quadrant, Non-Distended, No Hepato- splenomegaly Extremities: No edema, Capillary Refill Less than 3 Seconds Skin: No rashes, No breakdown Musculoskeletal: No Tenderness to Palpation of Joints or Extremities Neurological: Cranial nerves II-XII grossly intact, Motor Exam 5/5 strength throughout, Sensory exam intact to light touch and pain Psych/Mental Status: Normal Affect, Appropriate Assessment & Plan Assessment/Plan (1) Hydronephrosis: (2) Acute diverticulitis: PLAN: Plan 1. Acute diverticulitis ? Continue with Cipro and Flagyl ? N.p.o. ? We will transition to Dilaudid as she says that she is beginning a headache from morphine ? Given her episodes of abdominal pain with diverticulitis may be beneficial see general surgery as an outpatient on discharge 2. Left hydronephrosis with renal atrophy ? No WENDY, will continue with IV fluids as she is n.p.o. ?Status post cystoscopy and stent placed yesterday and her left ureter, she is passing some clots but she is able to urinate 3. GERD ? Stable ? Continue with PPI when taking p.o. 4. Anemia ? Unclear as to the etiology based on MCV is likely iron deficiency anemia though it did worsen since admission and no significant correlation with surgery so unclear if it is a blood loss anemia ? We will obtain iron studies and continue to monitor DVT: SCDs Charges/Coding Visit Charges Inpatient E&M: 95255 Subs Hosp L2
[2023-07-18] MEDS: Ciprofloxacin 400 MG/200 ML BAG 200 MG IV ×2 (10:26→21:31)
[2023-07-18] MEDS: 0.9% Saline Lock 10 ML Syringe IV ×3 (10:26→18:42)
[2023-07-18 10:45] LABS: Ferritin 49 ng/mL (8-252); Iron 15 ug/dL (50-170); Iron Binding Capacity,Total 346 ug/dL (250-450); PERCENT IRON SATURATION 4.3 % (15.0-55.0)
[2023-07-18 14:00] VITALS: BP 156/74; PULSE 67; RESP 14; TEMP 36.6; O2SAT 93
--- NOTE | 2023-07-18 15:09 | PCM.CONS.B ---
Consult Date of Consult: 07/18/23 Reason for Consult Status post cystoscopy and left stent placement for dilated kidney with apparent UPJ obstruction. She states that she does not feel much better. Having some blood in the urine urinating okay. Plan to get a KUB to check the placement of the stent. Plan to do an ultrasound of her kidney, and also do a renal scan for function Assessment & Plan Assessment/Plan (1) Hydronephrosis: (2) Obstruction of left ureteropelvic junction (UPJ):
--- NOTE | 2023-07-18 15:11 | US_ITS ---
STUDY: RENAL ULTRASOUND - COMPLETE REASON FOR EXAM: Female, 52 years old. S/P LEFT STENT TECHNIQUE: Ultrasound evaluation of the kidneys was performed with real-time and static zendejas-scale imaging. COMPARISON: CT scan 07/16/2023. FINDINGS: Exam limited by patient size and bowel gas. RIGHT KIDNEY: Normal location of the right kidney, which is normal in size. The right kidney measures 14.2 x 6.6 x 5.7 cm. There is a normal cortex of the right kidney. The renal cortex measures 1.4 cm. There is no right renal mass or cyst. There are no right renal calculi. There is no right hydronephrosis. DISTAL RIGHT URETER: There is non-visualization of the distal right ureter. There is no demonstrated right ureterovesical junction calculus. There is a visualized right ureteral jet. LEFT KIDNEY: Normal location of the left kidney, which is normal in size. The left kidney measures 14.1 x 5.9 x 6.0 cm. There is diffuse thinning of the renal cortex. The renal cortex measures 0.7 cm. There is no left renal mass or cyst. There are no left renal calculi. There is severe hydronephrosis of the left kidney. However, the degree of hydronephrosis is significantly improved since placement of stent. DISTAL LEFT URETER: There is non-visualization of the distal left ureter. There is no demonstrated left ureterovesical junction calculus. There is a visualized left ureteral jet. BLADDER: The distended urinary bladder has a volume of 194 ml. The terminal portion of left ureteral stent is seen in the bladder. There is a diffusely thickened wall of the distended bladder. There is no demonstrated mass within the urinary bladder. There are no demonstrated bladder calculi. US/Kidney and Bladder IMPRESSION: Limited as above. Normal right kidney. Severe left hydronephrosis but markedly improved since previous CT scan. Electronically Signed: Akil Jaquez MD at 16:55 EDT ,
--- NOTE | 2023-07-18 15:26 | RAD_ITS ---
STUDY: X-RAY - ABDOMEN/PELVIS REASON FOR EXAM: Female, 52 years old. Stent placement. TECHNIQUE: Single AP view of the abdomen / pelvis on 2 images. COMPARISON: None. FINDINGS: Left ureteral stent present in anatomic position. Normal bowel gas pattern. Minimal amount of feces in the colon. The visualized liver, spleen and kidneys are grossly normal in size and morphology. Phleboliths. Normal visualized osseous structures. RAD/Abdomen Single View IMPRESSION: Left ureteral stent present with no acute abnormality. Electronically Signed: Romeo Vega MD at 15:46 EDT ,
[2023-07-18] MEDS: Sodium Ferric Gluconat/Sucrose 250 MG in 0.9% Normal Saline (250mL Bag) 250 ML 135 MG IV (18:42)
[2023-07-18 21:36] VITALS: BP 138/77; PULSE 84; RESP 16; TEMP 37.1; O2SAT 93
[2023-07-18 21:39] VITALS: O2SAT 92
[2023-07-19] MEDS: HYDROmorphone 1 MG/ML Syringe IV ×5 (00:30→17:56)
[2023-07-19 03:59] VITALS: BP 141/66; PULSE 77; RESP 16; TEMP 37.1; O2SAT 93
[2023-07-19] MEDS: Ondansetron 4 MG/2 ML Vial IV ×2 (04:06→21:43)
[2023-07-19] MEDS: 0.9% Normal Saline (1000mL) 1,000 ML 100 ML IV ×2 (06:52→21:36)
[2023-07-19] MEDS: metroNIDAZOLE 500 MG/100 ML BAG 100 MG IV ×3 (06:52→23:00)
--- NOTE | 2023-07-19 07:28 | PN.URO_ITS ---
Subjective Subjective 52-year-old female status post stent placement for left UPJ obstruction, KUB today demonstrates that the stent is in place, renal ultrasound demonstrates that the swelling of the kidney is significantly reduced and the stent is in place and draining well. She still states that she is not feeling the greatest but is somewhat better. Today we will get a renal scan to evaluate function of the kidney. From urology standpoint patient can be discharged to follow-up with me as an outpatient when she is clinically better. And she can make an appointment to see me in a few weeks. Call with questions Objective Data Objective Data Vital Signs: Vital Signs Temp Pulse Resp BP Pulse Ox O2 Del Method 98.7 F 77 16 141/66 H 93 Room Air 07/19/23 03:59 07/19/23 03:59 07/19/23 03:59 07/19/23 03:59 07/19/23 03:59 07/19/23 03:59 Oxygen Delivery Method Room Air Weight: 113.398 kg Body Mass Index (BMI) 42.9 Intake & Output: Intake and Output for Last 24 Hours 07/17/23 07/18/23 07/19/23 23:59 23:59 23:59 Intake Total 2655.83 / 2655.83 2873.33 / 3173.33 1696.67 / 1696.67 Output Total 450 / 450 Balance 2205.83 / 2205.83 2873.33 / 3173.33 1696.67 / 1696.67 Lab / Micro Data 07/18/23 06:40 07/18/23 06:40 Labs: Laboratory Results - last 24 hr 07/18/23 06:40: WBC 7.8, RBC 3.58 L, Hgb 8.2 L, Hct 28.0 L, MCV 78.2 L, MCH 22.9 L, MCHC 29.3 L, RDW Std Deviation 53.1 H, RDW Coeff of Pierce 18.6 H, Plt Count 252, MPV 9.8, Immature Gran % (Auto) 0.300, Neut % (Auto) 70.7 H, Lymph % (Auto) 18.3 L, Hanson % (Auto) 8.9, Eos % (Auto) 1.5, Baso % (Auto) 0.3, Absolute Neuts (auto) 5.5, Absolute Lymphs (auto) 1.42, Nucleated RBC % 0, Sodium 140, Potassium 3.5, Chloride 110 H, Carbon Dioxide 26.0, Anion Gap 4 L, BUN 7, Creatinine 0.61, Estim Creat Clear Calc 95.28, Est GFR (MDRD) Af Amer 134, Est GFR (MDRD) Non-Af 110, BUN/Creatinine Ratio 11.5, Glucose 115 H, Calcium 8.2 L, Iron 15 L, TIBC 346, Iron Saturation 4.3 L, Ferritin 49 Radiography Diagnostic Testing: Radiology Impression Renal Ultrasound 07/18/23 15:11 IMPRESSION: Limited as above. Normal right kidney. Severe left hydronephrosis but markedly improved since previous CT scan. Electronically Signed: Akil Jaquez MD at 16:55 EDT , KUB X-Ray 07/18/23 15:26 IMPRESSION: Left ureteral stent present with no acute abnormality. Electronically Signed: Romeo Vega MD at 15:46 EDT , Physical Exam Const alert and oriented x3 General Appearance: cooperative HEENT normocephalic, head/scalp atraumatic, EAC's normal and TM's normal bilaterally Eyes PERRL and EOMs intact bilaterally Pupil: sluggish Neck no lymphadenopathy, supple and no JVD General: trachea midline Lymph Lymphatic: no lymphadenopathy noted, lymphedema and lymphadenopathy Resp normal respiratory effort, normal air movement and clear to auscultation eric aterally Cardio regular rate, regular rhythm and peripheral pulses 2+ throughout GI soft to palpation, non-tender and non-distended Extremity normal capillary refill and no clubbing, cyanosis or edema General Extremity: no tenderness to palpation of joints or extremities Skin no rashes or lesions noted General Skin Exam: turgor normal Lesions: no lesions Rashes: no rashes Neuro CN's II-XII intact bilaterally Speech: speech normal Motor Exam: strength 5/5 throughout; Negative for general weakness Psych thought process normal, cooperative and affect normal Appearance: appropriate Assessment & Plan Assessment/Plan (1) Obstruction of left ureteropelvic junction (UPJ):
[2023-07-19 07:48] LABS: Absolute Lymphocyte Count 1.14 X10^3/uL (0.83-4.51); Absolute Neutrophil Count 5.8 X10^3/uL (2.0-7.7); Basophil# 0.03 X10^3/uL; Basophil% 0.4 % (0-1); Eosinophil# 0.12 X10^3/uL; Eosinophils% 1.5 % (0-5); Hematocrit 28.2 % (37-47); Hemoglobin 8.4 g/dL (12.0-15.0); Lymphocyte # 1.14 X10^3/ul (0.83-4.51); Lymphocyte % 14.7 % (19-41); Mean Corp Hgb Conc 29.8 g/dL (32-36); Mean Corpuscular Hgb 22.8 pg (27.0-32.0); Mean Corpuscular Volume 76.6 fL (81-99); Mean Platelet Vol. 9.9 fl (6.2-12.0); Monocyte# 0.67 X10^3/uL; Monocyte% 8.6 % (0-10); NRBC Flagged by Analyzer 0 % (0-5); Neutrophil # 5.79 X10^3/uL (2.7-7.7); Neutrophil % 74.4 % (47-70); Platelet Count 291 K/mm3 (150-450); RBC Distribution Width CV 18.1 % (11.6-14.6); RBC Distribution Width SD 50.3 fl (35.1-43.9); Red Blood Count 3.68 M/mm3 (4.2-5.4); White Blood Count 7.8 K/mm3 (4.4-11.0)
[2023-07-19 08:11] LABS: Anion Gap 6 (5-15); BUN 5 mg/dL (7-18); BUN/Creat Ratio 8.7 RATIO (10-20); Calcium,Total 8.4 mg/dL (8.5-10.1); Chloride 107 mmol/L (98-107); Creatinine, Serum 0.58 mg/dL (0.55-1.02); EST Glomerular Filtration Rate 118 mL/min (>60); Est Glom Filt Rate - Afr Amer 142 mL/min (>60); Glucose 106 mg/dL (74-106); Potassium 3.6 mmol/L (3.5-5.1); Sodium Level 139 mmol/L (136-145)
--- NOTE | 2023-07-19 08:28 | PN.HOSP_ITS ---
Subjective Subjective Still some left-sided abdominal pain unclear whether or not this is her hydronephrosis versus a diverticulitis she is passing flatus but she also has nausea Objective Data Objective Data Vital Signs: Vital Signs Temp Pulse Resp BP Pulse Ox O2 Del Method 98.7 F 77 16 141/66 H 93 Room Air 07/19/23 03:59 07/19/23 03:59 07/19/23 03:59 07/19/23 03:59 07/19/23 03:59 07/19/23 03:59 Oxygen Delivery Method Room Air Weight: 250 lb Body Mass Index (BMI) 42.9 Intake & Output: Intake and Output for Last 24 Hours 07/18/23 07/19/23 07/20/23 03:59 03:59 03:59 Intake Total 3455.83 / 3455.83 3270.00 / 3270.00 400 / 400 Output Total 450 / 450 Balance 3005.83 / 3005.83 3270.00 / 3270.00 400 / 400 Lab / Micro Data 07/19/23 07:00 07/19/23 07:00 Labs: Laboratory Results - last 24 hr 07/18/23 06:40: Iron 15 L, TIBC 346, Iron Saturation 4.3 L, Ferritin 49 07/19/23 07:00: WBC 7.8, RBC 3.68 L, Hgb 8.4 L, Hct 28.2 L, MCV 76.6 L, MCH 22.8 L, MCHC 29.8 L, RDW Std Deviation 50.3 H, RDW Coeff of Pierce 18.1 H, Plt Count 291, MPV 9.9, Immature Gran % (Auto) 0.400, Neut % (Auto) 74.4 H, Lymph % (Auto) 14.7 L, Giles % (Auto) 8.6, Eos % (Auto) 1.5, Baso % (Auto) 0.4, Absolute Neuts (auto) 5.8, Absolute Lymphs (auto) 1.14, Nucleated RBC % 0, Sodium 139, P otassium 3.6, Chloride 107, Carbon Dioxide 26.0, Anion Gap 6, BUN 5 L, Creati nine 0.58, Estim Creat Clear Calc 100.20, Est GFR (MDRD) Af Amer 142, Est GFR (MDRD) Non-Af 118, BUN/Creatinine Ratio 8.7 L, Glucose 106, Calcium 8.4 L Radiography Diagnostic Testing: Radiology Impression Renal Ultrasound 07/18/23 15:11 IMPRESSION: Limited as above. Normal right kidney. Severe left hydronephrosis but markedly improved since previous CT scan. Electronically Signed: Akil Jaquez MD at 16:55 EDT , KUB X-Ray 07/18/23 15:26 IMPRESSION: Left ureteral stent present with no acute abnormality. Electronically Signed: Romeo Vega MD at 15:46 EDT , Physical Exam Narrative General: Alert, Oriented x3, Cooperative, No apparent distress HEENT: Atraumatic, PERRLA, EOMI, Normocephalic Oral: Moist Mucosa Neck: Supple, No JVD Lungs: Diminished, Normal air movement, No rhonchi, No wheeze, No rales Cardiovascular: Regular rate, Regular Rhythm, Normal S1, Normal S2, No murmurs Abdomen: Soft, mild tender left lower quadrant, Non-Distended, No Hepato- splenomegaly Extremities: No edema, Capillary Refill Less than 3 Seconds Skin: No rashes, No breakdown Musculoskeletal: No Tenderness to Palpation of Joints or Extremities Neurological: Cranial nerves II-XII grossly intact, Motor Exam 5/5 strength throughout, Sensory exam intact to light touch and pain Psych/Mental Status: Normal Affect, Appropriate Assessment & Plan Assessment/Plan (1) Hydronephrosis: (2) Acute diverticulitis: PLAN: Plan 1. Acute diverticulitis ? Continue with Cipro and Flagyl ? N.p.o. but can advance as she tolerates that she does have some nausea ? We will transition to Dilaudid as she says that she is beginning a headache from morphine ? Given her episodes of abdominal pain with diverticulitis may be beneficial see general surgery as an outpatient on discharge ? I do recommend that she ambulate and we discussed minimizing the amount of narcotics so that which she does not give herself an ileus 2. Left hydronephrosis with renal atrophy ? No WENDY, will continue with IV fluids as she is n.p.o. ?Status post cystoscopy and stent placed yesterday and her left ureter, she is passing some clots but she is able to urinate 3. GERD ? Stable ? Continue with PPI when taking p.o. 4. Iron deficiency anemia ? Iron is low at 15 with an iron saturation of 4.3 and a ferritin of 49 in the setting of inflammation from diverticulitis and her hydronephrosis ? She did receive a dose of IV iron yesterday ? We will continue to monitor DVT: SCDs Charges/Coding Visit Charges Inpatient E&M: 61898 Subs Hosp L2
[2023-07-19 10:24] VITALS: BP 165/74; PULSE 84; RESP 16; TEMP 36.9; O2SAT 95
[2023-07-19] MEDS: Famotidine 20 MG Tablet 40 MG PO (10:35)
[2023-07-19] MEDS: 0.9% Saline Lock 10 ML Syringe IV (10:37)
[2023-07-19] MEDS: Ciprofloxacin 400 MG/200 ML BAG 200 MG IV ×2 (10:37→21:43)
--- NOTE | 2023-07-19 11:00 | NM_ITS ---
CLINICAL: 52-year-old female with history of left kidney hydronephrosis, status post stent placement. 99m Tc MAG3 DIURETIC RENAL SCINTIGRAPHY COMPARISON: CT of the abdomen-pelvis report 07/16/2023, renal ultrasound report 07/18/2023 FINDINGS: Following the intravenous administration of 10.0 mCi of 99m Tc MAG3, renal images reveal: 1. The flow study demonstrates relatively prompt arterial phase distribution of the radiopharmaceutical to the right kidney. Flow to the left kidney is visually absent. 2. Immediate static delayed nephrogram images depict normal and homogeneous tracer distribution by the renal parenchyma of the right kidney. Uptake in the left kidney is markedly delayed and decreased. Collecting structure visualization is noted in the right kidney at approximately 2-3 minutes post tracer injection. Washout of the radiopharmaceutical by the renal parenchyma of the right kidney is qualitatively normal. There is spontaneous drainage of the right kidney collecting system activity noted during 20 minutes of pre-Lasix sequential image acquisition. Collecting structure visualization is not identified during pre-Lasix imaging in the left kidney. Minimal collecting system activity appears evident in the left renal unit following the administration of furosemide. 3. The bhfgx-ao-nrrt ratio of total renal parenchymal function was calculated to be 97/3. Furosemide 10 mg was administered intravenously. The post Lasix T ? washout of the residual right kidney collecting system activity was calculated to be < 10 minutes, (normal < 10 minutes). Increasing collecting system activity is demonstrated in the left renal unit following diuretic administration. NM/Renal Scan w/ Pharm Intervent IMPRESSION: 1. There is preservation of right kidney renal parenchymal-cortical function. Severe cortical dysfunction is demonstrated in the left renal unit as defined above. 2. The right kidney collecting system demonstrates a normal physiologic response to diuretic administration. 3. Nonvisualization of the left kidney collecting system prior to Lasix administration with subsequent visualized increasing collecting system activity following diuretic administration is commensurate with a component of cortical dysfunction and functional and/or mechanical obstruction. Electronically Signed: Bacilio Zelaya DO at 15:35 EDT ,
[2023-07-19 16:26] VITALS: BP 161/85; PULSE 74; RESP 16; TEMP 36.6; O2SAT 94
[2023-07-19 21:41] VITALS: BP 135/63; PULSE 64; RESP 14; TEMP 36.6; O2SAT 96
[2023-07-20] MEDS: HYDROmorphone 1 MG/ML Syringe IV ×2 (00:12→06:02)
[2023-07-20 05:00] VITALS: BP 148/70; PULSE 66; RESP 14; TEMP 36.6; O2SAT 99
[2023-07-20] MEDS: metroNIDAZOLE 500 MG/100 ML BAG 100 MG IV (06:01)
[2023-07-20 07:30] LABS: Absolute Lymphocyte Count 1.09 X10^3/uL (0.83-4.51); Basophil# 0.04 X10^3/uL; Basophil% 0.6 % (0-1); Eosinophil# 0.16 X10^3/uL; Eosinophils% 2.3 % (0-5); Hematocrit 31.4 % (37-47); Lymphocyte # 1.09 X10^3/ul (0.83-4.51); Lymphocyte % 15.4 % (19-41); Mean Corp Hgb Conc 28.7 g/dL (32-36); Mean Corpuscular Hgb 22.2 pg (27.0-32.0); Mean Corpuscular Volume 77.3 fL (81-99); Mean Platelet Vol. 9.5 fl (6.2-12.0); Monocyte# 0.82 X10^3/uL; Monocyte% 11.5 % (0-10); NRBC Flagged by Analyzer 0 % (0-5); Neutrophil # 4.96 X10^3/uL (2.7-7.7); Neutrophil % 69.8 % (47-70); Platelet Count 320 K/mm3 (150-450); RBC Distribution Width CV 18.4 % (11.6-14.6); RBC Distribution Width SD 50.7 fl (35.1-43.9); Red Blood Count 4.06 M/mm3 (4.2-5.4); White Blood Count 7.1 K/mm3 (4.4-11.0)
[2023-07-20 08:05] LABS: Anion Gap 4 (5-15); BUN 6 mg/dL (7-18); BUN/Creat Ratio 8.5 RATIO (10-20); Calcium,Total 8.8 mg/dL (8.5-10.1); Chloride 108 mmol/L (98-107); Creatinine, Serum 0.71 mg/dL (0.55-1.02); EST Glomerular Filtration Rate 93 mL/min (>60); Est Glom Filt Rate - Afr Amer 112 mL/min (>60); Estimated Creatinine Clearance 81.86 ml/min; Glucose 121 mg/dL (74-106); Potassium 3.5 mmol/L (3.5-5.1); Sodium Level 140 mmol/L (136-145)
--- NOTE | 2023-07-20 08:41 | PCM.DC ---
Discharge Instructions Diet Discharge Diet: Light diet - advance as tolerated Activity Discharge Activity: Return to Normal Activity Dressing / Incision Call your doctor if you observe: Fever of 101 or Higher, Shortness of breath, Dizziness, Fainting spells, Swelling in the ankles, Chest pain and Increased palpitations (irregular heartbeat) Follow Up Care Test Results: Test results from this visit will be discussed in further detail at your follow-up appointment, if applicable. Discharge Plan Admission Admit Date/Time: 07/16/23 12:23 Attending Provider: Jake Bryant Primary Care Provider: Care Physician,No Primary Consulting Providers: Chad Burrows Discharge Orders/Prescriptions Prescriptions: New ciprofloxacin HCl 500 mg tablet 500 mg PO BID 5 Days Qty: 10 0RF metronidazole 500 mg tablet 500 mg PO TID 5 Days Qty: 15 0RF Continued lansoprazole 15 mg Capsule,Delayed Release(Dr/Ec) 15 mg PO DAILY Referrals / Follow Up: Chad Burrows MD [Med Staff - Active Staff] - Within 2 Weeks Care Physician,No Primary [Primary Care Provider] - Disposition Disposition (needs filled in before D/C Order can be placed): Home, Self Care
--- NOTE | 2023-07-20 09:23 | CASEMGMT ---
IVAN CM into pt room, pt has a dc order in. Pt denies any homegoing needs, she feels safe to return home.
--- NOTE | 2023-07-20 09:28 | PCM.DC.SUM ---
Providers Date of Admission: 07/16/23 Primary Care Physician: Carole Primary Care Phys Consultations 07/16/23 13:20 Consult: Urology Routine Consulting Provider: Chad Burrows Reason for Consult: Left hydronephrosis EMERGENT Consult: No MD Notified: Yes Date Notified: 07/16/23 Time Notified: 12:25 Method of Notification: ED Physician Initiated Reason For Visit: LEFT HYDRONEPHOSIS WITH ABDOMINAL PAIN Diagnosis Discharge Diagnosis (1) Hydronephrosis: Status: Acute Code(s): N13.30 - Unspecified hydronephrosis (2) Acute diverticulitis: Status: Acute Code(s): K57.92 - Diverticulitis of intestine, part unspecified, without perforation or abscess without bleeding Medications at Discharge Home Medications lansoprazole 15 mg capsule,delayed release 15 mg PO DAILY GERD 10/31/21 ascorbic acid (vitamin C) 500 mg tablet (C-500) 500 mg PO DAILY #30 tabs 07/20/23 ciprofloxacin HCl 500 mg tablet 500 mg PO BID 5 days #10 tabs 07/20/23 ferrous gluconate 324 mg (38 mg iron) tablet 324 mg PO DAILY #30 tabs 07/20/23 metronidazole 500 mg tablet 500 mg PO TID 5 days #15 tabs 07/20/23 Hospital Course Operations None Procedures - (Cystoscopy with left ureteral stent placement) Summary of Care Provided Minutes Spent on Discharge: 37 Hospital Course: Per HPI: PIERO XIE, is a 52 F who presents to the hospital with left-sided abdominal pain since . She is also been having some nausea as well as vomiting. She has had this pain before with previous episodes of diverticulitis and apparently diverticulitis runs in the family with issues with perforations and colostomies with other family members. She had another episode of diverticulitis about a year ago at that time she had a CT scan which demonstrated a left hydronephrosis with significant left renal atrophy. This has been redemonstrated with larger hydronephrosis on this admission. The case was discussed with urology by the ED physician and they will see in consult. No significant fevers or chills but significant abdominal pain. CT scan does show some left descending colon stranding consistent with diverticulitis. Hospital Course: 1. Acute diverticulitis?52-year-old female whose had an episode of diverticulitis in the past presents to the hospital with repeated left sided diverticulitis. She was started on Cipro and Flagyl and was made n.p.o. and she tolerated this fairly well. She did have a slow response to the antibiotics however on the day of discharge she felt that she was able to tolerate food with very minimal pain and request to go home. She does have multiple allergies to oral narcotics therefore she cannot be discharged on any pain meds this was discussed with her and she understands. Given her history I do think it be worthwhile for her to follow-up with the general surgeon as an outpatient, therefore I do think she should follow-up with her PCP in 3 to 5 days for outpatient follow-up and evaluation. We will continue with Cipro and Flagyl for 5 more days to complete treatment. 2. Left hydronephrosis with renal atrophy?she has had this for several years without any significant outpatient evaluation or follow-up apparently, urology was consulted on admission and she had a left ureteral stent placed with good response. She will need to follow-up with urology as an outpatient as well. 3. Iron deficiency anemia?she started developing worsening anemia since about November 2022. Iron studies were obtained which demonstrated iron deficiency anemia with a low iron saturation as well as iron, her ferritin was normal at 49 in the setting of inflammation so she did receive a dose of IV iron and her hemoglobin improved from 8.2 to [address] her on oral iron on discharge. She has a history of GERD and she is on lansoprazole we will also place her on vitamin C tablets to take with the iron. Physical Exam Narrative General: Alert, Oriented x3, Cooperative, No apparent distress HEENT: Atraumatic, PERRLA, EOMI, Normocephalic Oral: Moist Mucosa Neck: Supple, No JVD Lungs: Diminished, Normal air movement, No rhonchi, No wheeze, No rales Cardiovascular: Regular rate, Regular Rhythm, Normal S1, Normal S2, No murmurs Abdomen: Soft, minimal tender left lower quadrant, Non-Distended, No Hepato-splenomegaly Extremities: No edema, Capillary Refill Less than 3 Seconds Skin: No rashes, No breakdown Musculoskeletal: No Tenderness to Palpation of Joints or Extremities Neurological: Cranial nerves II-XII grossly intact, Motor Exam 5/5 strength throughout, Sensory exam intact to light touch and pain Psych/Mental Status: Normal Affect, Appropriate Weight / BMI Weight Weight: 250 lb Body Mass Index (BMI) 42.9 ABG / Lab / Microbiology Data 07/20/23 06:55 07/20/23 06:55 Laboratory: Laboratory Results - last 24 hr 07/20/23 06:55: WBC 7.1, RBC 4.06 L, Hgb 9.0 L, Hct 31.4 L, MCV 77.3 L, MCH 22.2 L, MCHC 28.7 L, RDW Std Deviation 50.7 H, RDW Coeff of Pierce 18.4 H, Plt Count 320, MPV 9.5, Immature Gran % (Auto) 0.400, Neut % (Auto) 69.8, Lymph % (Auto) 15.4 L, Hutchinson % (Auto) 11.5 H, Eos % (Auto) 2.3, Baso % (Auto) 0.6, Absolute Neuts (auto) 5.0, Absolute Lymphs (auto) 1.09, Nucleated RBC % 0, Sodium 140, Potassium 3.5, Chloride 108 H, Carbon Dioxide 28.0, Anion Gap 4 L, BUN 6 L, Creatinine 0.71, Estim Creat Clear Calc 81.86, Est GFR (MDRD) Af Amer 112, Est GFR (MDRD) Non-Af 93, BUN/Creatinine Ratio 8.5 L, Glucose 121 H, Calcium 8.8 Radiography Diagnostic Testing: Radiology Impression Renal Scan w/Medication NM 07/19/23 11:00 IMPRESSION: 1. There is preservation of right kidney renal parenchymal-cortical function. Severe cortical dysfunction is demonstrated in the left renal unit as defined above. 2. The right kidney collecting system demonstrates a normal physiologic response to diuretic administration. 3. Nonvisualization of the left kidney collecting system prior to Lasix administration with subsequent visualized increasing collecting system activity following diuretic administration is commensurate with a component of cortical dysfunction and functional and/or mechanical obstruction. Electronically Signed: Bacilio Zelaya DO at 15:35 EDT , D/C Instructions Discharge Diet: Light diet - advance as tolerated Call your doctor if you observe: Fever of 101 or Higher, Shortness of breath, Dizziness, Fainting spells, Swelling in the ankles, Chest pain and Increased palpitations (irregular heartbeat) Meaningful Use Info Meaningful Use Diagnoses (Choose all that apply): None applicable Discharge Plan Admission Admit Date/Time: 07/16/23 12:23 Attending Provider: Jake Bryant Primary Care Provider: Care Physician,No Primary Consulting Providers: Chad Burrows Discharge Orders/Prescriptions Prescriptions: New ciprofloxacin HCl 500 mg tablet 500 mg PO BID 5 Days Qty: 10 0RF metronidazole 500 mg tablet 500 mg PO TID 5 Days Qty: 15 0RF ferrous gluconate 324 mg (38 mg iron) tablet 324 mg PO DAILY Qty: 30 0RF ascorbic acid (vitamin C) [C-500] 500 mg tablet 500 mg PO DAILY Qty: 30 0RF Rx Instructions: Take with iron tablet Continued lansoprazole 15 mg Capsule,Delayed Release(Dr/Ec) 15 mg PO DAILY Referrals / Follow Up: Chad Burrows MD [Med Staff - Active Staff] - Within 2 Weeks Care Physician,No Primary [Primary Care Provider] - Disposition Disposition (needs filled in before D/C Order can be placed): Home, Self Care Charges/Coding Visit Charges Inpatient E&M: 92195 Disch Hosp >30min
[2023-07-20 10:50] VITALS: BP 155/73; PULSE 77; RESP 16; TEMP 35.9; O2SAT 95
== END 2023-07-20 11:20 | disposition home or self-care (01) | DRG 988 ==
LOC: ED 12:12 → MS3 12:43
PROVIDERS: Urology; Admitting Provider Family Medicine; Emergency Provider Emergency Medicine; Visit Provider Family Medicine
PROC: 0T778DZ Dilation of Left Ureter with Intraluminal Device, Via Natural or Artificial Opening Endoscopic (ICD-10-PCS; CPT 52332; principal; 2023-07-17 11:50)
DX: K57.32 Diverticulitis of large intestine without perforation or abscess without bleeding (principal); N13.30 Unspecified hydronephrosis; I10 Essential (primary) hypertension; D50.9 Iron deficiency anemia, unspecified; K21.9 Gastro-esophageal reflux disease without esophagitis; N26.1 Atrophy of kidney (terminal)
CPT/HCPCS: 36415; 74018; 74176; 76000; 76770; 78708; 80048; 81001; 82728; 83540; 83550; 83605; 85025; 93005; 99284; A9562; J7030; J7050; A4216; C1769; J0744; J2405; J2916

== ENCOUNTER 2023-07-21 16:53 | Inpatient (IN) | payer OTHER, MEDICAID, SELFPAY ==
[2023-07-21] VITALS (9 sets, daily range): BP systolic 141–190; BP diastolic 69–97; PULSE 77–125; RESP 12–23; TEMP 37.2–39.1; O2SAT 86–98; BMI 41.8
--- NOTE | 2023-07-21 17:12 | EKG12_ITS ---
Test Reason : Blood Pressure : / mmHG Vent. Rate : 107 BPM Atrial Rate : 107 BPM P-R Int : 158 ms QRS Dur : 078 ms QT Int : 332 ms P-R-T Axes : 059 010 014 degrees QTc Int : 443 ms Sinus tachycardia Possible Left atrial enlargement Nonspecific ST and T wave abnormality Abnormal ECG Confirmed by PUMA FISCHER, BERNARD ([id number]), food expeditor MINDA SCHULER ([id number]) on 07/24/2023 1:45:23 PM Referred By: Confirmed By:CORBIN BARTHOLOMEW MD
--- NOTE | 2023-07-21 17:36 | RAD_ITS ---
STUDY: X-RAY CHEST REASON FOR EXAM: Female, 52 years old. fever TECHNIQUE: Single AP portable view of the chest. COMPARISON: 12/01/2022. FINDINGS: The lungs are clear and expanded. There is no demonstrated pleural abnormality. Normal size heart. Normal mediastinum and barrie. Normal visualized pulmonary arteries. There is atherosclerotic tortuosity of the aortic arch and descending thoracic aorta. There are diffuse degenerative changes of the visualized thoracic spine. Normal visualized ribs, clavicles, and shoulders. There is no demonstrated abnormality of the visualized soft tissue structures of the upper abdomen. RAD/Chest 1 View (Portable) IMPRESSION: No acute cardiopulmonary disease. Electronically Signed: Lucy Walden MD at 18:16 EDT ,
--- NOTE | 2023-07-21 17:55 | EDS_ITS ---
HPI History of Present Illness Chief Complaint: Fever Informant: patient Narrative Narrative: Patient is a 52-year-old female with recent stent placement to her left kidney with Dr. Burrows, discharged from the hospital yesterday, presenting with fever, worsening left flank pain, nausea, vomiting and headache. Patient states she was feeling fine when she was discharged yesterday. She notes that she had not started her outpatient antibiotics because the pharmacy did not have her prescription ready.Patient had a stent placed because of severe left hydronephrosis associated with UPJ obstruction. Patient states she was ultimately told that her left kidney was going to be removed by Dr. Burrows. Today she has had worsening symptoms since breakfast. She has had associated vomiting. Denies any black or blood in her vomit. Does think she had some decreased urine output and she has had bowel movements that are yellow and just look like acid.Stent was placed on 07/17. Patient did have a CT of her abdomen and pelvis at time of admission which also showed acute diverticulitis. [facility] Medical History Alcohol use Back pain Difficulty swallowing Gastric reflux Herniated nucleus pulposus, L5-S1 History of diverticulitis History of hiatal hernia History of pain when walking Hypertension Injury of back Marijuana use Wears glasses Home Medications lansoprazole 15 mg capsule,delayed release 15 mg PO DAILY GERD 10/31/21 [History Last Taken 07/15/23] ascorbic acid (vitamin C) 500 mg tablet (C-500) 500 mg PO DAILY #30 tabs 07/20/23 [Rx Last Taken Unknown] ciprofloxacin HCl 500 mg tablet 500 mg PO BID 5 days #10 tabs 07/20/23 [Rx Last Taken Unknown] ferrous gluconate 324 mg (38 mg iron) tablet 324 mg PO DAILY #30 tabs 07/20/23 [Rx Last Taken Unknown] metronidazole 500 mg tablet 500 mg PO TID 5 days #15 tabs 07/20/23 [Rx Last Taken Unknown] Allergy/AdvReac Type Severity Reaction Status Date / Time acetaminophen [From Vicodin] Allergy vomit, SOB Verified 07/21/23 16:56 clarithromycin [From Biaxin] Allergy vomit, SOB Verified 07/21/23 16:56 hydrocodone [From Vicodin] Allergy vomit, SOB Verified 07/21/23 16:56 oxycodone Allergy Shortness Verified 07/21/23 16:56 of breath Family History Other Cancer Diabetes Heart disease Surgical History History of carpal tunnel release of both wrists History of surgery Hx laparoscopic cholecystectomy Hx of appendectomy Hx of section Hx of shoulder surgery Hx of tonsillectomy Hx of tubal ligation Social History Smoking Status: Never smoker ROS ROS ED Constitutional Constitutional ED: Reports chills and fever(s) Cardiovascular Cardiovascular: Denies chest pain Respiratory/Chest Respiratory/Chest: Denies cough Gastrointestinal Gastrointestinal: Reports abdominal pain, diarrhea, nausea and vomiting Genitourinary Genitourinary ED: Denies dysuria or hematuria Musculoskeletal Musculoskeletal: Reports back pain; Denies arthralgias Integumentary Denies rash Neurologic Neurologic: Reports headache(s) EXAM Physical Exam Const Vital Signs: 07/21/23 16:54 07/21/23 17:12 07/21/23 16:54 Temperature 102.3 F H 102.3 F H Temperature Source Oral Oral Pulse Rate 125 H 125 H Respiratory Rate 18 18 Respiratory Effort Normal Non-Labored Respiratory Pattern Normal Blood Pressure 190/97 H 190/97 H Blood Pressure Mean 128 128 Pulse Ox 98 98 Oxygen Delivery Method Room Air Room Air Oxygen Flow Rate (L/min) 07/21/23 17:12 07/21/23 19:18 07/21/23 19:42 Temperature 99.3 F H Temperature Source Oral Pulse Rate 89 87 Respiratory Rate 23 H 12 Respiratory Effort Respiratory Pattern Blood Pressure 158/75 H Blood Pressure Mean 102 Pulse Ox Oxygen Delivery Method Room Air Room Air Room Air Oxygen Flow Rate (L/min) 07/21/23 20:50 07/21/23 21:15 07/21/23 21:16 Temperature 99.0 F Temperature Source Oral Pulse Rate 81 77 Respiratory Rate 12 12 Respiratory Effort Respiratory Pattern Blood Pressure 141/76 H 144/69 H Blood Pressure Mean 97 94 Pulse Ox 92 86 95 Oxygen Delivery Method Room Air Room Air Nasal Cannula Oxygen Flow Rate (L/min) 0.5 07/21/23 22:13 Temperature 99.4 F H Temperature Source Oral Pulse Rate 81 Respiratory Rate 13 Respiratory Effort Respiratory Pattern Blood Pressure 151/72 H Blood Pressure Mean 98 Pulse Ox 93 Oxygen Delivery Method Nasal Cannula Oxygen Flow Rate (L/min) 1 Positive well nourished and well developed Constitutional Narrative: Uncomfortable appearing General Appearance ED: well developed HEENT Reports moist mucous membranes Eyes PERRL General Eye ED: Negative for scleral icterus Neck supple Chest Wall inspection of chest normal and palpation of chest normal Resp normal respiratory effort and clear to auscultation bilaterally Cardio regular rhythm and no murmurs Rate: tachycardic GI GI Narrative: Mild left-sided abdominal tenderness Inspection: Negative for abdominal distention Auscultation: normoactive bowel sounds Palpation: soft; Negative for guarding Back/Spine General Back: CVA tenderness left Extremity normal to inspection Neuro oriented x3 Sensorium / Orientation: alert Psych mental status grossly normal Mood & Affect: anxious Skin no rashes or lesions noted and no wounds MDM MDM MDM Narrative Medical decision making narrative: Patient is evaluated for nausea, vomiting abdominal discomfort/left flank pain. Her recent medical history is been quite complex with a stent placed in her left kidney for obstructive hydronephrosis as well as recent diagnosis of diverticulitis. She has not been able to take her antibiotics for the past 24 hours because the pharmacy did not have it in stock when she was discharged from the hospital. In addition she is having a fever. Sepsis work-up is initiated. Concern for intra-abdominal infection, pyelonephritis, COVID UTI is the source of her infection/fever. Patient's CBC is unremarkable. She has a normal white blood cell count with no change from her labs from yesterday. Her hemoglobin is anemic but improving and is now 10.4. Platelets are normal. CMP normal as well as her lipase. Urinalysis does show inflammatory changes but negative nitrates, 10-25 red blood cells and 5-10 white blood cells with some squamous epithelial contamination and 1+ bacteria. Given she has had a stent placed will send for culture however I am not convinced that she does have a urinary tract infection given this urinalysis. CT of the abdomen pelvis is obtained which shows now a decompressed left kidney with some residual perinephric stranding. This could be from the recent decompression but cannot rule out pyelonephritis. In addition she is found to have dilation of the proximal small bowel which may be ileus versus early or partial small bowel obstruction. Case is discussed with general surgery, Dr. Hernandez, who is not highly concerned for a bowel obstruction but given that patient is not tolerating p.o. and symptomatic recommends keeping n.p.o. Patient started on Zosyn to cover for potential bacterial infection as she does have fever of uncertain cause. COVID test is negative. Chest x-ray that showed acute process. EKG shows sinus tachycardia with no acute ischemic changes. Low suspicion for cardiopulmonary infection as the cause of her symptoms given her vital signs. Will admit for further monitoring of her tractable nausea, vomiting, continued flank pain as well as fever. Case is discussed admitting physician, Dr. Raphael. In addition I did discuss the case with her urologist, Dr. Burrows who states that if the kidney is currently decompressed and the stent is appropriately placed he is a low suspicion for any acute urologic emergency Lab Data Attestation: I reviewed the patient's lab results. Labs: Laboratory Results - last 24 hr 07/21/23 07/21/23 17:41 18:07 WBC 7.7 RBC 4.56 Hgb 10.4 L Hct 33.9 L MCV 74.3 L MCH 22.8 L MCHC 30.7 L D RDW Std Deviation 49.6 H RDW Coeff of [place] 19.7 H Plt Count 375 MPV 9.7 Immature Gran % (Auto) 0.500 Neut % (Auto) 76.9 H Lymph % (Auto) 6.5 L [place] % (Auto) 14.4 H Eos % (Auto) 1.3 Baso % (Auto) 0.4 Absolute Neuts (auto) 5.9 Absolute Lymphs (auto) 0.50 L Nucleated RBC % 0 Differential Comment SCANNED PT 14.1 INR 1.1 APTT 29.5 Sodium 138 Potassium 3.6 Chloride 105 Carbon Dioxide 27.0 Anion Gap 6 BUN 11 Creatinine 1.00 Estim Creat Clear Calc 58.12 Est GFR (MDRD) Af Amer 75 Est GFR (MDRD) Non-Af 62 BUN/Creatinine Ratio 11.0 Glucose 112 H Lactic Acid 0.9 Calcium 9.2 Total Bilirubin 0.30 AST 28 ALT 32 Alkaline Phosphatase 114 Total Protein 7.6 Albumin 3.5 Globulin 4.1 Albumin/Globulin Ratio 0.9 Urine Color Yellow Urine Clarity Sl. Cloudy Urine pH 8.0 Ur Specific [place] 1.010 Urine Protein 100 H Urine Glucose (UA) Normal Urine Ketones 5 H Urine Occult Blood 250 H Urine Nitrite Negative Urine Bilirubin Negative Urine Urobilinogen Normal Ur Leukocyte Esterase 100 H Urine RBC 10-25 SEEN Urine WBC 5-10 SEEN Ur Squamous Epith Cells 5-10 SEEN Urine Bacteria 1+ Urine Mucus 1+ Radiography Chest X-Ray - ED: 1 View, Read by ED Physician, Read by Radiologist and No Acute Disease Diagnostic Testing: Clinical Impression(s) from Imaging Studies Chest X-Ray 07/21/23 17:36 IMPRESSION: No acute cardiopulmonary disease. Electronically Signed: Lucy Walden MD at 18:16 EDT , Abdomen/Pelvis CT 07/21/23 18:32 IMPRESSION: Status post the decompression of the left renal collecting system with the left-sided ureteral stent in place, no hydronephrosis seen. There is mild left-sided perinephric and peripelvic stranding which may be due to sequela of prior hydronephrosis, cannot exclude infectious process or pyelonephritis in the appropriate clinical context. Status post cholecystectomy, remainder of abdominal viscera are unremarkable. Dilatation of proximal small bowel which may indicate ileus versus early or partial small bowel obstruction, clinical correlation recommended. Follow-up x-ray, 2 views of the abdomen and pelvis may evaluate progression. Diverticulosis with no signs of diverticulitis. Electronically Signed: Lucy Walden MD at 19:15 EDT , Rhythm Strip Rhythm Strip: Sinus Tach Rate: 107 Ectopy: None EKG Initial EKG: Attestation: I personally reviewed and interpreted this EKG as follows: Interpretation: Sinus Tachycardia Comments: Sinus tachycardia at a rate of 107 bpm Normal axis Normal intervals Possible left atrial enlargement Nonspecific T wave changes Management Discussion w/another healthcare provider: Hospitalist and Nuclear Medical Technologist Discharge Plan Dx/Rx/DC Orders Clinical Impression: Fever, Abdominal pain, Left flank pain, Nausea & vomiting Disposition Disposition: Acute Care Hospital [facility] Discharge Date/Time: 07/22/23 00:01
[2023-07-21] MEDS: Ondansetron 4 MG/2 ML Vial IV ×2 (18:00→20:34)
[2023-07-21] MEDS: 0.9% Normal Saline (1000mL) 1,000 ML 999 ML IV (18:00)
[2023-07-21] MEDS: Acetaminophen 500 MG Tablet PO (18:00)
[2023-07-21 18:01] LABS: Absolute Neutrophil Count 5.9 X10^3/uL (2.0-7.7); Basophil# 0.03 X10^3/uL; Basophil% 0.4 % (0-1); Eosinophils% 1.3 % (0-5); Hematocrit 33.9 % (37-47); Hemoglobin 10.4 g/dL (12.0-15.0); Lymphocyte % 6.5 % (19-41); Mean Corp Hgb Conc 30.7 g/dL (32-36); Mean Corpuscular Hgb 22.8 pg (27.0-32.0); Mean Corpuscular Volume 74.3 fL (81-99); Mean Platelet Vol. 9.7 fl (6.2-12.0); Monocyte% 14.4 % (0-10); NRBC Flagged by Analyzer 0 % (0-5); Neutrophil # 5.89 X10^3/uL (2.7-7.7); Neutrophil % 76.9 % (47-70); POSITIVE DIFFERENTIAL YES; Platelet Count 375 K/mm3 (150-450); RBC Distribution Width CV 19.7 % (11.6-14.6); RBC Distribution Width SD 49.6 fl (35.1-43.9); Red Blood Count 4.56 M/mm3 (4.2-5.4); White Blood Count 7.7 K/mm3 (4.4-11.0)
[2023-07-21] MEDS: HYDROmorphone 0.5 MG/0.5 ML SYRINGE IV ×2 (18:01→20:34)
[2023-07-21 18:02] LABS: Differential Indicated SCAN CRITERIA MET
[2023-07-21 18:14] LABS: International Normalized Ratio 1.1; Partial Thromboplast Time 29.5 Seconds (24.1-36.2); Prothrombin Time (Protime)PT. 14.1 SECONDS (11.7-14.9)
[2023-07-21 18:17] LABS: ALB/GLOB Ratio 0.9 RATIO (0.9-2.4); AST(SGOT) 28 U/L (15-37); Alanine Aminotransfer ALT/SGPT 32 U/L (13-56); Albumin, Serum 3.5 g/dL (3.2-5.0); Alkaline Phosphatase 114 U/L (45-117); Anion Gap 6 (5-15); BUN 11 mg/dL (7-18); Calcium,Total 9.2 mg/dL (8.5-10.1); Chloride 105 mmol/L (98-107); EST Glomerular Filtration Rate 62 mL/min (>60); Est Glom Filt Rate - Afr Amer 75 mL/min (>60); Estimated Creatinine Clearance 58.12 ml/min; Globulin 4.1 g/dL (2.2-4.2); Glucose 112 mg/dL (74-106); Potassium 3.6 mmol/L (3.5-5.1); Protein, Total 7.6 g/dL (6.4-8.2); Sodium Level 138 mmol/L (136-145)
[2023-07-21 18:20] LABS: Color, Urine Yellow (Yellow); Glucose, Dipstick Normal (Normal); Ketone-Dipstick 5 mg/dl (Negative); Leukocyte Esterase-Dipstick 100 /ul (Negative); Nitrite-Dipstick Negative (Negative); Occult Blood-Urine 250 /ul (Negative); Protein-Dipstick 100 mg/dl (Negative); Urine Bilirubin Dipstick Negative (Negative); Urine Clarity Sl. Cloudy (Clear); Urine Urobilinogen Normal (Normal)
[2023-07-21 18:22] LABS: Differential Comment SCANNED
[2023-07-21 18:26] LABS: Red Blood Cells-Urine 10-25 SEEN /hpf (0-5); Squamous Epithelial Cells - UA 5-10 SEEN /hpf (5-10); White Blood Cells 5-10 SEEN /hpf (0-5)
[2023-07-21 18:27] LABS: Bacteria 1+ /hpf (None Seen); Mucous, Urine 1+ /hpf (<or=2+)
--- NOTE | 2023-07-21 18:32 | CT_ITS ---
STUDY: CT ABDOMEN AND PELVIS WITH CONTRAST REASON FOR EXAM: Female, 52 years old. l flank pain, fever, recent stent diverticulitis RADIATION DOSAGE (If Supplied By Facility): CTDIvol = ( 16.87 ) mGy, DLP = ( 1285.49 ) mGycm TECHNIQUE: Transaxial images were obtained from the dome of the diaphragm to the symphysis pubis without oral contrast. IV 100mL Isovue-370 was administered. Sagittal and coronal images were reconstructed. Individualized dose optimization techniques were used for this CT. COMPARISON: 07/16/2023. FINDINGS: Minimal posterior subpleural atelectasis, otherwise clear lung bases. The visualized portions of the heart are within normal limits. Normal liver. There are surgical clips in the gallbladder fossa consistent with a prior cholecystectomy. Normal spleen. Normal pancreas. Normal bilateral adrenal glands. Normal right kidney. Severe cortical atrophy of the right kidney with a left-sided ureteral stent in place. There is left perinephric stranding. There is mild stranding surrounding the left ureteral pelvis, nonspecific. Cannot entirely exclude infectious process such as pyelonephritis. There is no left-sided hydroureter. Moderate to large hiatal hernia. Multiple loops of small bowel distended up to 3.3 cm in the proximal small bowel concerning for ileus versus early small bowel obstruction, zone of transition indeterminate. There are multiple colonic diverticula consistent with diverticulosis. There is non-visualization of the appendix. There is diffuse atherosclerotic calcification of the abdominal aorta, without a demonstrated aneurysm. Normal inferior vena cava. Normal retroperitoneum. Urinary bladder is decompressed. Anteverted uterus. Normal abdominal wall. Mild spondylosis of the spine. CT/Abdomen/Pelvis W IV Cont ONLY IMPRESSION: Status post the decompression of the left renal collecting system with the left-sided ureteral stent in place, no hydronephrosis seen. There is mild left-sided perinephric and peripelvic stranding which may be due to sequela of prior hydronephrosis, cannot exclude infectious process or pyelonephritis in the appropriate clinical context. Status post cholecystectomy, remainder of abdominal viscera are unremarkable. Dilatation of proximal small bowel which may indicate ileus versus early or partial small bowel obstruction, clinical correlation recommended. Follow-up x-ray, 2 views of the abdomen and pelvis may evaluate progression. Diverticulosis with no signs of diverticulitis. Electronically Signed: Lucy Walden MD at 19:15 EDT ,
[2023-07-21 18:34] LABS: Lactic Acid 0.9 mmol/L (0.4-1.9)
[2023-07-21] MEDS: Piperacil/Tazobactam 3.375 GM in 0.9% Normal Saline (50mL MB+) 50 ML IV (20:45)
--- NOTE | 2023-07-21 22:44 | HP.PCM.HOS_ITS ---
HPI - General General Date of Admission: 07/21/23 Date of Service: 07/21/23 Chief Complaint: Fever and chills HPI Narrative PIERO XIE, is a 52 F with a significant history of hypertension who was recently admitted for diverticulitis and hydronephrosis secondary to UPJ obstruction who had decompression of hydronephrosis with stent placement on 07/17/2023 and discharged on 07/20/2023 returning next day (07/21/2023) with chills and fever. Patient felt better so she requested to be discharged home and her request was granted. Her antibiotics was not available at the pharmacy shop so she could not resume her antibiotics outpatient. Patient reports home temperature of 102.5 Fahrenheit. Associated with her symptoms is headaches and pain at his left abdomen that radiated to her left flank. Further patient complains of loose stools. He described her stool as 'acidic' CAT scan of her abdomen and pelvis showed ileus versus small bowel obstruction. ED doctor discussed case with Dr. Burrows and general surgery. Reportedly general surgery was not impressed with a small bowel obstruction [facility] Medical History Alcohol use Back pain Difficulty swallowing Gastric reflux Herniated nucleus pulposus, L5-S1 History of diverticulitis History of hiatal hernia History of pain when walking Hypertension Injury of back Marijuana use Wears glasses Home Medications lansoprazole 15 mg capsule,delayed release 15 mg PO DAILY GERD 10/31/21 [History Last Taken 07/15/23] ascorbic acid (vitamin C) 500 mg tablet (C-500) 500 mg PO DAILY #30 tabs 07/20/23 [Rx Last Taken Unknown] ciprofloxacin HCl 500 mg tablet 500 mg PO BID 5 days #10 tabs 07/20/23 [Rx Last Taken Unknown] ferrous gluconate 324 mg (38 mg iron) tablet 324 mg PO DAILY #30 tabs 07/20/23 [Rx Last Taken Unknown] metronidazole 500 mg tablet 500 mg PO TID 5 days #15 tabs 07/20/23 [Rx Last Taken Unknown] Allergy/AdvReac Type Severity Reaction Status Date / Time acetaminophen [From Vicodin] Allergy vomit, SOB Verified 07/21/23 16:56 clarithromycin [From Biaxin] Allergy vomit, SOB Verified 07/21/23 16:56 hydrocodone [From Vicodin] Allergy vomit, SOB Verified 07/21/23 16:56 oxycodone Allergy Shortness Verified 07/21/23 16:56 of breath Family History Other Cancer Diabetes Heart disease Surgical History History of carpal tunnel release of both wrists History of surgery Hx laparoscopic cholecystectomy Hx of appendectomy Hx of section Hx of shoulder surgery Hx of tonsillectomy Hx of tubal ligation Social History Smoking Status: Never smoker ROS ROS Narrative Pertinent positives and pertinent negatives as noted in HPI. All other systems were reviewed and are negative Vital Signs Vital Signs Vital Signs: 07/21/23 16:54 07/21/23 17:12 07/21/23 16:54 Temperature 102.3 F H 102.3 F H Temperature Source Oral Oral Pulse Rate 125 H 125 H Respiratory Rate 18 18 Respiratory Effort Normal Non-Labored Respiratory Pattern Normal Blood Pressure 190/97 H 190/97 H Blood Pressure Mean 128 128 Pulse Ox 98 98 Oxygen Delivery Method Room Air Room Air Oxygen Flow Rate (L/min) 07/21/23 17:12 07/21/23 19:18 07/21/23 19:42 Temperature 99.3 F H Temperature Source Oral Pulse Rate 89 87 Respiratory Rate 23 H 12 Respiratory Effort Respiratory Pattern Blood Pressure 158/75 H Blood Pressure Mean 102 Pulse Ox Oxygen Delivery Method Room Air Room Air Room Air Oxygen Flow Rate (L/min) 07/21/23 20:50 07/21/23 21:15 07/21/23 21:16 Temperature 99.0 F Temperature Source Oral Pulse Rate 81 77 Respiratory Rate 12 12 Respiratory Effort Respiratory Pattern Blood Pressure 141/76 H 144/69 H Blood Pressure Mean 97 94 Pulse Ox 92 86 95 Oxygen Delivery Method Room Air Room Air Nasal Cannula Oxygen Flow Rate (L/min) 0.5 07/21/23 22:13 Temperature 99.4 F H Temperature Source Oral Pulse Rate 81 Respiratory Rate 13 Respiratory Effort Respiratory Pattern Blood Pressure 151/72 H Blood Pressure Mean 98 Pulse Ox 93 Oxygen Delivery Method Nasal Cannula Oxygen Flow Rate (L/min) 1 Weight Weight: 110.677 kg Body Mass Index (BMI) 41.8 Physical Exam Narrative Physical exam: General: Well-nourished, well-developed. Head: Normocephalic, atraumatic, no tenderness Eyes: Vision is grossly intact. EOMI ENT, no trauma, moist mucous membranes, no rhinorrhea Neck: Nontender, No thyromegaly. CVS: Regular rate and rhythm. S1-S2 present. No murmur, gallop or rub. Respiratory : clear to auscultation bilaterally, chest wall nontender Abdomen: Soft, tender left abdomen, nondistended, normal bowel sounds, no masses : Deferred Back: Nontender, no CVA tenderness. Extremities: Nontender full range of motion, no trauma Skin: Normal color, no trauma, abrasions Neuro: Alert, oriented, cranial nerves II through XII grossly intact. Psychiatry: Normal mood. Normal affect. Not depressed. Not anxious. Results Lab / Micro Data 07/21/23 17:41 07/21/23 17:41 Labs: Laboratory Results - last 24 hr 07/21/23 17:41: WBC 7.7, RBC 4.56, Hgb 10.4 L, Hct 33.9 L, MCV 74.3 L, MCH 22.8 L, MCHC 30.7 L D, RDW Std Deviation 49.6 H, RDW Coeff of [place] 19.7 H, Plt Count 375, MPV 9.7, Immature Gran % (Auto) 0.500, Neut % (Auto) 76.9 H, Lymph % (Auto) 6.5 L, [place] % (Auto) 14.4 H, Eos % (Auto) 1.3, Baso % (Auto) 0.4, Absolute Neuts (auto) 5.9, Absolute Lymphs (auto) 0.50 L, Nucleated RBC % 0, Differential Comment SCANNED, PT 14.1, INR 1.1, APTT 29.5, Sodium 138, Potassium 3.6, Chlori de 105, Carbon Dioxide 27.0, Anion Gap 6, BUN 11, Creatinine 1.00, Estim Creat Clear Calc 58.12, Est GFR (MDRD) Af Amer 75, Est GFR (MDRD) Non-Af 62, BUN/Creatinine Ratio 11.0, Glucose 112 H, Lactic Acid 0.9, Calcium 9.2, Total Bilirubin 0.30, AST 28, ALT 32, Alkaline Phosphatase 114, Total Protein 7.6, Albumin 3.5, Globulin 4.1, Albumin/Globulin Ratio 0.9 07/21/23 18:07: Urine Color Yellow, Urine Clarity Sl. Cloudy, Urine pH 8.0, Ur Specific [place] 1.010, Urine Protein 100 H, Urine Glucose (UA) Normal, Urine Ketones 5 H, Urine Occult Blood 250 H, Urine Nitrite Negative, Urine Bilirubin Negative, Urine Urobilinogen Normal, Ur Leukocyte Esterase 100 H, Urine RBC 10- 25 SEEN, Urine WBC 5-10 SEEN, Ur Squamous Epith Cells 5-10 SEEN, Urine Bacteria 1+, Urine Mucus 1+ Micro: Microbiology 07/21/23 17:41 Nasal Secretion SARS-CoV-2 Antigen (Rapid) - Final Radiology Impression Chest X-Ray 07/21/23 17:36 IMPRESSION: No acute cardiopulmonary disease. Electronically Signed: Lucy Walden MD at 18:16 EDT , Abdomen/Pelvis CT 07/21/23 18:32 IMPRESSION: Status post the decompression of the left renal collecting system with the left-sided ureteral stent in place, no hydronephrosis seen. There is mild left-sided perinephric and peripelvic stranding which may be due to sequela of prior hydronephrosis, cannot exclude infectious process or pyelonephritis in the appropriate clinical context. Status post cholecystectomy, remainder of abdominal viscera are unremarkable. Dilatation of proximal small bowel which may indicate ileus versus early or partial small bowel obstruction, clinical correlation recommended. Follow-up x-ray, 2 views of the abdomen and pelvis may evaluate progression. Diverticulosis with no signs of diverticulitis. Electronically Signed: Lucy Walden MD at 19:15 EDT , Assessment & Plan Assessment/Plan (1) Acute diverticulitis: (2) Pyelonephritis: (3) Obstruction of left ureteropelvic junction (UPJ): PLAN: Plan Acute pyelonephritis Impression of CT of abdomen and pelvis by radiology: Status post the decompression of the left renal collecting system with the left-sided ureteral stent in place, no hydronephrosis seen. There is mild left-sided perinephric and peripelvic stranding which may be due to sequela of prior hydronephrosis, cannot exclude infectious process or pyelonephritis in the appropriate clinical context. Status post cholecystectomy, remainder of abdominal viscera are unremarkable. Dilatation of proximal small bowel which may indicate ileus versus early or partial small bowel obstruction, clinical correlation recommended. Follow-up x-ray, 2 views of the abdomen and pelvis may evaluate progression. Abdomen and pelvis CT was visualized and independently interpreted. I agree with radiology interpretation. Diverticulosis with no signs of diverticulitis. Likely recent stenting and etiology Procedure contributing. Started on Zosyn at the emergency department and continued. Tylenol for fever. Supportive treatment with IV fluids. As needed Dilaudid for pain Obstruction of left ureteropelvic junction Noted on previous admission 07/16/2023 to 07/20/2023 and resolved with stenting. Acute diverticulitis CBC showed normal white count, trend. Zosyn as above. DVT prophylaxis SCDs ordered. Time spent in the patient's overall evaluation,decision-making process, review of diagnostic data, adjustment of management, discussion with other providers, nursing nursing and ancillary staff involved in patient's care documentation, 70 minutes. Charges/Coding Visit Charges Inpatient E&M: 69574 Init [facility] L3
[2023-07-22 00:17] VITALS: BMI 43.6
[2023-07-22 00:26] VITALS: BP 150/67; PULSE 73; RESP 18; TEMP 37; O2SAT 98
[2023-07-22] MEDS: 0.9% Normal Saline (1000mL) 1,000 ML 100 ML IV ×3 (00:43→17:41)
[2023-07-22] MEDS: HYDROmorphone 0.5 MG/0.5 ML SYRINGE IV ×2 (00:45→05:49)
--- NOTE | 2023-07-22 00:57 | CON.PCM.UR_ITS ---
Assessment & Plan Assessment/Plan (1) Left flank pain: (2) Obstruction of left ureteropelvic junction (UPJ): PLAN: Poorly functioning, nonfunctioning left kidney status post stent completely decompressed at this point we admitted to the hospital for further pain at this point not exactly sure what is causing her further pain might be an ileus or reactive ileus will follow along with you while she is in the hospital and also discussed with the patient that eventually she will need to have her left kidney removed. I sort of would want to wait till her ileus and pain is resolved to do a nephrectomy on the left side. Call me with questions. (3) Pyelonephritis: HPI Consult Data Date of Consult: 07/22/23 HPI Narrative Reason for Consultation: Emergency room consultation HPI Narrative: PIERO XIE, is a 52 F who presents to the emergency room with abdominal pain she is to be admitted emergency room called me regarding her pain she was prior to her admission she was admitted for UPJ obstruction with a hugely hydronephrotic kidney and she underwent a cystoscopy and stent placement. CAT scans demonstrates that the kidney is completely decompressed now there is a little bit of inflammation around the kidney. Looks like there might be a small ileus with the bowels. From my standpoint I do not think any surgical intervention immediately is necessary from urology, ultrasound prior to this demonstrated the stent was in good place, she did have a renal scan that demonstrated only 3% function differential in the kidney. Stent is in place. I will have the talk to the patient regarding the situation in the end she probably will benefit from having a complete nephrectomy of her left kidney which is a nonfunctioning kidney and at this point only hydronephrotic and poorly functioning. I am going to wait to perform this nephrectomy once her situation is stabilized no immediate an indication is present she needs a follow-up in my office after discharge to the plan for this. [facility] Medical History Alcohol use Back pain Difficulty swallowing Gastric reflux Herniated nucleus pulposus, L5-S1 History of diverticulitis History of hiatal hernia History of pain when walking Hypertension Injury of back Marijuana use Wears glasses Home Medications lansoprazole 15 mg capsule,delayed release 15 mg PO DAILY GERD 10/31/21 [History Last Taken 07/15/23] ascorbic acid (vitamin C) 500 mg tablet (C-500) 500 mg PO DAILY #30 tabs 07/20/23 [Rx Last Taken Unknown] ciprofloxacin HCl 500 mg tablet 500 mg PO BID 5 days #10 tabs 07/20/23 [Rx Last Taken Unknown] ferrous gluconate 324 mg (38 mg iron) tablet 324 mg PO DAILY #30 tabs 07/20/23 [Rx Last Taken Unknown] metronidazole 500 mg tablet 500 mg PO TID 5 days #15 tabs 07/20/23 [Rx Last Taken Unknown] Allergy/AdvReac Type Severity Reaction Status Date / Time acetaminophen [From Vicodin] Allergy vomit, SOB Verified 07/21/23 16:56 clarithromycin [From Biaxin] Allergy vomit, SOB Verified 07/21/23 16:56 hydrocodone [From Vicodin] Allergy vomit, SOB Verified 07/21/23 16:56 oxycodone Allergy Shortness Verified 07/21/23 16:56 of breath Family History Other Cancer Diabetes Heart disease Surgical History History of carpal tunnel release of both wrists History of surgery Hx laparoscopic cholecystectomy Hx of appendectomy Hx of section Hx of shoulder surgery Hx of tonsillectomy Hx of tubal ligation Social History Smoking Status: Never smoker ROS Constitutional Constitutional: Denies chills, fever(s) or malaise Eyes Eyes: Denies blurry vision or change in vision ENT HEENT: Reports none Cardiovascular Cardiovascular: Denies chest pain or palpitations Respiratory/Chest Respiratory/Chest: Denies cough or shortness of breath with exertion Gastrointestinal Gastrointestinal: Denies abdominal pain, constipation or diarrhea Musculoskeletal Musculoskeletal: Denies back pain, joint stiffness or joint swelling Integumentary Integumentary: Denies dry skin, jaundice, lesions or rash Neurologic Neurologic: Denies confusion, syncope or weakness Psychiatric Psychiatric: Reports none; Denies anxiety or depression Endocrine Endocrinology: Denies excessive sweating, fatigue or flushing Hematologic/Lymphatic Hematologic/Lymphatic: Denies anemia, easy bleeding or easy bruising Physical Exam Const alert and oriented x3 General Appearance: cooperative HEENT normocephalic, head/scalp atraumatic, EAC's normal and TM's normal bilaterally Eyes PERRL and EOMs intact bilaterally Pupil: sluggish Neck no lymphadenopathy, supple and no JVD General: trachea midline Lymph Lymphatic: no lymphadenopathy noted, lymphedema and lymphadenopathy Resp normal respiratory effort, normal air movement and clear to auscultation bilaterally Cardio regular rate, regular rhythm and peripheral pulses 2+ throughout GI soft to palpation, non-tender and non-distended Extremity normal capillary refill and no clubbing, cyanosis or edema General Extremity: no tenderness to palpation of joints or extremities Skin no rashes or lesions noted General Skin Exam: turgor normal Lesions: no lesions Rashes: no rashes Neuro CN's II-XII intact bilaterally Speech: speech normal Motor Exam: strength 5/5 throughout; Negative for general weakness Psych thought process normal, cooperative and affect normal Appearance: appropriate Medical Records Data Attestation: I reviewed the patient's medical records Lab / Micro Data 07/21/23 17:41 07/21/23 17:41 Labs: Laboratory Results - last 24 hr 07/21/23 17:41: WBC 7.7, RBC 4.56, Hgb 10.4 L, Hct 33.9 L, MCV 74.3 L, MCH 22.8 L, MCHC 30.7 L D, RDW Std Deviation 49.6 H, RDW Coeff of Pierce 19.7 H, Plt Count 375, MPV 9.7, Immature Gran % (Auto) 0.500, Neut % (Auto) 76.9 H, Lymph % (Auto) 6.5 L, [place] % (Auto) 14.4 H, Eos % (Auto) 1.3, Baso % (Auto) 0.4, Absolute Neuts (auto) 5.9, Absolute Lymphs (auto) 0.50 L, Nucleated RBC % 0, Differential Comment SCANNED, PT 14.1, INR 1.1, APTT 29.5, Sodium 138, Potassium 3.6, Chloride 105, Carbon Dioxide 27.0, Anion Gap 6, BUN 11, Creatinine 1.00, Estim Creat Clear Calc 58.12, Est GFR (MDRD) Af Amer 75, Est GFR (MDRD) Non-Af 62, BUN/Creatinine Ratio 11.0, Glucose 112 H, Lactic Acid 0.9, Calcium 9.2, Total Bilirubin 0.30, AST 28, ALT 32, Alkaline Phosphatase 114, Total Protein 7.6, Albumin 3.5, Globulin 4.1, Albumin/Globulin Ratio 0.9 07/21/23 18:07: Urine Color Yellow, Urine Clarity Sl. Cloudy, Urine pH 8.0, Ur Specific [place] 1.010, Urine Protein 100 H, Urine Glucose (UA) Normal, Urine Ketones 5 H, Urine Occult Blood 250 H, Urine Nitrite Negative, Urine Bilirubin Negative, Urine Urobilinogen Normal, Ur Leukocyte Esterase 100 H, Urine RBC 10- 25 SEEN, Urine WBC 5-10 SEEN, Ur Squamous Epith Cells 5-10 SEEN, Urine Bacteria 1+, Urine Mucus 1+ Micro: Microbiology 07/21/23 17:41 Nasal Secretion SARS-CoV-2 Antigen (Rapid) - Final Rhythm Strip Rhythm Strip: Sinus Tach Rate: 107 Ectopy: None Radiology Impression Chest X-Ray 07/21/23 17:36 IMPRESSION: No acute cardiopulmonary disease. Electronically Signed: Lucy Walden MD at 18:16 EDT Reading Location ID and State: [place] / [place] , Service support , Abdomen/Pelvis CT 07/21/23 18:32 IMPRESSION: Status post the decompression of the left renal collecting system with the left-sided ureteral stent in place, no hydronephrosis seen. There is mild left-sided perinephric and peripelvic stranding which may be due to sequela of prior hydronephrosis, cannot exclude infectious process or pyelonephritis in the appropriate clinical context. Status post cholecystectomy, remainder of abdominal viscera are unremarkable. Dilatation of proximal small bowel which may indicate ileus versus early or partial small bowel obstruction, clinical correlation recommended. Follow-up x-ray, 2 views of the abdomen and pelvis may evaluate progression. Diverticulosis with no signs of diverticulitis. Electronically Signed: Lucy Walden MD at 19:15 EDT ,
[2023-07-22] MEDS: proCHLORPERazine 10 MG/2 ML Vial 5 MG IV ×3 (01:26→21:00)
[2023-07-22] MEDS: 0.9% Saline Lock 10 ML Syringe IV ×5 (01:26→21:00)
[2023-07-22 05:36] VITALS: BP 172/87; PULSE 82; RESP 20; TEMP 37.6; O2SAT 95
[2023-07-22 05:46] LABS: Absolute Lymphocyte Count 0.92 X10^3/uL (0.83-4.51); Basophil# 0.03 X10^3/uL; Basophil% 0.6 % (0-1); Eosinophil# 0.04 X10^3/uL; Eosinophils% 0.8 % (0-5); Hematocrit 31.6 % (37-47); Hemoglobin 9.1 g/dL (12.0-15.0); Lymphocyte # 0.92 X10^3/ul (0.83-4.51); Lymphocyte % 18.3 % (19-41); Mean Corp Hgb Conc 28.8 g/dL (32-36); Mean Corpuscular Hgb 22.1 pg (27.0-32.0); Mean Corpuscular Volume 76.7 fL (81-99); Mean Platelet Vol. 9.7 fl (6.2-12.0); Monocyte# 0.99 X10^3/uL; Monocyte% 19.7 % (0-10); NRBC Flagged by Analyzer 0 % (0-5); Neutrophil # 3.02 X10^3/uL (2.7-7.7); Platelet Count 311 K/mm3 (150-450); RBC Distribution Width CV 19.9 % (11.6-14.6); RBC Distribution Width SD 51.8 fl (35.1-43.9); Red Blood Count 4.12 M/mm3 (4.2-5.4)
[2023-07-22] MEDS: Ondansetron 4 MG/2 ML Vial IV ×3 (05:46→17:42)
[2023-07-22] MEDS: Piperacil/Tazobactam 3.375 GM in 0.9% Normal Saline (50mL MB+) 50 ML IV (05:51)
[2023-07-22 06:27] LABS: Anion Gap 4 (5-15); BUN 9 mg/dL (7-18); BUN/Creat Ratio 10.8 RATIO (10-20); Calcium,Total 8.1 mg/dL (8.5-10.1); Chloride 109 mmol/L (98-107); Creatinine, Serum 0.83 mg/dL (0.55-1.02); EST Glomerular Filtration Rate 77 mL/min (>60); Est Glom Filt Rate - Afr Amer 93 mL/min (>60); Estimated Creatinine Clearance 70.02 ml/min; Glucose 97 mg/dL (74-106); Potassium 3.3 mmol/L (3.5-5.1); Sodium Level 140 mmol/L (136-145)
[2023-07-22 08:07] VITALS: O2SAT 91
--- NOTE | 2023-07-22 08:33 | PN.HOSP_ITS ---
Subjective Subjective Did not fail outpatient therapy unfortunately her pharmacy did not have her antibiotics to be filled and she presented with fever and increased abdominal pain. Feels about the same today as she did when she came in, she is afebrile with a normal white count Objective Data Objective Data Vital Signs: Vital Signs Temp Pulse Resp BP Pulse Ox O2 Del Method O2 Flow Rate 99.6 F H 82 20 H 172/87 H 91 Room Air 1 07/22/23 05:36 07/22/23 05:36 07/22/23 05:36 07/22/23 05:36 07/22/23 08:07 07/22/23 08:07 07/21/23 23:01 Oxygen Flow Rate (L/min) 1 Oxygen Delivery Method Room Air Weight: 253 lb 15.56 oz Body Mass Index (BMI) 43.6 Intake & Output: Intake and Output for Last 24 Hours 07/21/23 07/22/23 07/23/23 03:59 03:59 03:59 Intake Total 1050 / 1050 0 / 0 Balance 1050 / 1050 0 / 0 Lab / Micro Data 07/22/23 04:23 07/22/23 04:23 Labs: Laboratory Results - last 24 hr 07/21/23 17:41: WBC 7.7, RBC 4.56, Hgb 10.4 L, Hct 33.9 L, MCV 74.3 L, MCH 22.8 L, MCHC 30.7 L D, RDW Std Deviation 49.6 H, RDW Coeff of Pierce 19.7 H, Plt Count 375, MPV 9.7, Immature Gran % (Auto) 0.500, Neut % (Auto) 76.9 H, Lymph % (Auto) 6.5 L, [place] % (Auto) 14.4 H, Eos % (Auto) 1.3, Baso % (Auto) 0.4, Absolute Neuts (auto) 5.9, Absolute Lymphs (auto) 0.50 L, Nucleated RBC % 0, Differential Comment SCANNED, PT 14.1, INR 1.1, APTT 29.5, Sodium 138, Potassium 3.6, Chloride 105, Carbon Dioxide 27.0, Anion Gap 6, BUN 11, Creatinine 1.00, Estim Creat Clear Calc 58.12, Est GFR (MDRD) Af Amer 75, Est GFR (MDRD) Non-Af 62, BUN/Creatinine Ratio 11.0, Glucose 112 H, Lactic Acid 0.9, Calcium 9.2, Total Bilirubin 0.30, AST 28, ALT 32, Alkaline Phosphatase 114, Total Protein 7.6, Albumin 3.5, Globulin 4.1, Albumin/Globulin Ratio 0.9 07/21/23 18:07: Urine Color Yellow, Urine Clarity Sl. Cloudy, Urine pH 8.0, Ur Specific [place] 1.010, Urine Protein 100 H, Urine Glucose (UA) Normal, Urine Ketones 5 H, Urine Occult Blood 250 H, Urine Nitrite Negative, Urine Bilirubin Negative, Urine Urobilinogen Normal, Ur Leukocyte Esterase 100 H, Urine RBC 10- 25 SEEN, Urine WBC 5-10 SEEN, Ur Squamous Epith Cells 5-10 SEEN, Urine Bacteria 1+, Urine Mucus 1+ 07/22/23 04:23: WBC 5.0, RBC 4.12 L, Hgb 9.1 L, Hct 31.6 L, MCV 76.7 L, MCH 22.1 L, MCHC 28.8 L D, RDW Std Deviation 51.8 H, RDW Coeff of [place] 19.9 H, Plt Count 311, MPV 9.7, Immature Gran % (Auto) 0.600, Neut % (Auto) 60.0, Lymph % (Auto) 18.3 L, [place] % (Auto) 19.7 H, Eos % (Auto) 0.8, Baso % (Auto) 0.6, Absolute Neuts (auto) 3.0, Absolute Lymphs (auto) 0.92, Nucleated RBC % 0, Sodium 140, Potassium 3.3 L, Chloride 109 H, Carbon Dioxide 27.0, Anion Gap 4 L, BUN 9, Creatinine 0.83, Estim Creat Clear Calc 70.02, Est GFR (MDRD) Af Amer 93, Est GFR (MDRD) Non-Af 77, BUN/Creatinine Ratio 10.8, Glucose 97, Calcium 8.1 L Micro: Microbiology 07/21/23 17:41 Nasal Secretion SARS-CoV-2 Antigen (Rapid) - Final Radiography Diagnostic Testing: Radiology Impression Chest X-Ray 07/21/23 17:36 IMPRESSION: No acute cardiopulmonary disease. Electronically Signed: Lucy Walden MD at 18:16 EDT , Abdomen/Pelvis CT 07/21/23 18:32 IMPRESSION: Status post the decompression of the left renal collecting system with the left-sided ureteral stent in place, no hydronephrosis seen. There is mild left-sided perinephric and peripelvic stranding which may be due to sequela of prior hydronephrosis, cannot exclude infectious process or pyelonephritis in the appropriate clinical context. Status post cholecystectomy, remainder of abdominal viscera are unremarkable. Dilatation of proximal small bowel which may indicate ileus versus early or partial small bowel obstruction, clinical correlation recommended. Follow-up x-ray, 2 views of the abdomen and pelvis may evaluate progression. Diverticulosis with no signs of diverticulitis. Electronically Signed: Lucy Walden MD at 19:15 EDT Reading Location ID and State: [facility] / [place] , Service support , Rhythm Strip Rhythm Strip: Sinus Tach Rate: 107 Ectopy: None Physical Exam Narrative General: Alert, Oriented x3, Cooperative, No apparent distress HEENT: Atraumatic, PERRLA, EOMI, Normocephalic Oral: Moist Mucosa Neck: Supple, No JVD Lungs: Diminished, Normal air movement, No rhonchi, No wheeze, No rales Cardiovascular: Regular rate, Regular Rhythm, Normal S1, Normal S2, No murmurs Abdomen: Soft, mild tender left lower quadrant, Non-Distended, No Hepato- splenomegaly Extremities: No edema, Capillary Refill Less than 3 Seconds Skin: No rashes, No breakdown Musculoskeletal: No Tenderness to Palpation of Joints or Extremities Neurological: Cranial nerves II-XII grossly intact, Motor Exam 5/5 strength throughout, Sensory exam intact to light touch and pain Psych/Mental Status: Normal Affect, Appropriate Assessment & Plan Assessment/Plan (1) Acute diverticulitis: PLAN: Plan 1. Acute diverticulitis ? She does not have pyelonephritis, and her readmission is solely due to the pharmacy not having her antibiotics ? We will transition back to Cipro and Flagyl as this was causing improvement prior to discharge ? We will place on a clear liquid diet ? May have a slight ileus due to the inflammation however her UA studies cannot be interpreted as positive as she had hydronephrosis and instrumentation as well as a stent placed within the last 2 days 2. Left hydronephrosis with renal atrophy ? We will need to follow-up with urology as an outpatient ? The left ureteral stent is doing well and her hydronephrosis has resolved 3. Iron deficiency anemia ? She did receive a dose of IV iron on her previous admission we will continue with her vitamin C and oral iron on this admission 4. GERD ? Stable ? She says that only her home lansoprazole helps so this will be continued DVT: SCDs Charges/Coding Visit Charges Inpatient E&M: 73934 Subs Hosp L2
[2023-07-22] MEDS: Ciprofloxacin 400 MG/200 ML BAG 200 MG IV ×2 (08:54→22:07)
[2023-07-22 09:30] VITALS: BP 157/82; PULSE 75; RESP 15; TEMP 36.8; O2SAT 94
[2023-07-22] MEDS: metroNIDAZOLE 500 MG/100 ML BAG 100 MG IV ×2 (09:45→20:53)
[2023-07-22] MEDS: Pantoprazole Sodium 20 MG Tablet PO (09:47)
[2023-07-22] MEDS: HYDROmorphone 1 MG/ML Syringe IV ×2 (12:03→17:43)
[2023-07-22] MEDS: Ascorbic Acid 500 MG Tablet PO (12:03)
[2023-07-22] MEDS: Ferrous Gluconate 324 MG Tablet PO (12:03)
[2023-07-22 15:00] VITALS: BP 145/73; PULSE 73; RESP 15; TEMP 37.3; O2SAT 94
[2023-07-22 20:48] VITALS: BP 152/75; PULSE 79; RESP 16; TEMP 37.3; O2SAT 95
[2023-07-23] MEDS: Ondansetron 4 MG/2 ML Vial IV ×3 (01:23→17:07)
[2023-07-23] MEDS: HYDROmorphone 1 MG/ML Syringe IV ×2 (01:23→09:30)
[2023-07-23] MEDS: 0.9% Saline Lock 10 ML Syringe IV ×5 (01:24→22:35)
[2023-07-23 02:30] VITALS: BP 150/70; PULSE 74; RESP 16; TEMP 37.4; O2SAT 94
[2023-07-23] MEDS: 0.9% Normal Saline (1000mL) 1,000 ML 100 ML IV ×2 (03:03→13:04)
[2023-07-23 05:53] LABS: Absolute Lymphocyte Count 1.27 X10^3/uL (0.83-4.51); Absolute Neutrophil Count 2.5 X10^3/uL (2.0-7.7); Basophil# 0.03 X10^3/uL; Basophil% 0.6 % (0-1); Eosinophils% 4.2 % (0-5); Hematocrit 31.6 % (37-47); Hemoglobin 9.2 g/dL (12.0-15.0); Lymphocyte # 1.27 X10^3/ul (0.83-4.51); Lymphocyte % 26.6 % (19-41); Mean Corp Hgb Conc 29.1 g/dL (32-36); Mean Corpuscular Hgb 22.5 pg (27.0-32.0); Mean Corpuscular Volume 77.3 fL (81-99); Mean Platelet Vol. 9.3 fl (6.2-12.0); Monocyte# 0.79 X10^3/uL; Monocyte% 16.5 % (0-10); NRBC Flagged by Analyzer 0 % (0-5); Neutrophil # 2.46 X10^3/uL (2.7-7.7); Neutrophil % 51.5 % (47-70); Platelet Count 290 K/mm3 (150-450); RBC Distribution Width CV 19.9 % (11.6-14.6); RBC Distribution Width SD 54.2 fl (35.1-43.9); Red Blood Count 4.09 M/mm3 (4.2-5.4); White Blood Count 4.8 K/mm3 (4.4-11.0)
[2023-07-23] MEDS: metroNIDAZOLE 500 MG/100 ML BAG 100 MG IV ×3 (06:00→22:23)
[2023-07-23 07:10] VITALS: O2SAT 93
[2023-07-23 07:14] LABS: Anion Gap 5 (5-15); BUN 6 mg/dL (7-18); BUN/Creat Ratio 8.6 RATIO (10-20); Calcium,Total 8.2 mg/dL (8.5-10.1); Chloride 112 mmol/L (98-107); EST Glomerular Filtration Rate 94 mL/min (>60); Est Glom Filt Rate - Afr Amer 114 mL/min (>60); Estimated Creatinine Clearance 83.03 ml/min; Glucose 91 mg/dL (74-106); Potassium 3.7 mmol/L (3.5-5.1); Sodium Level 143 mmol/L (136-145)
--- NOTE | 2023-07-23 07:41 | PCM.CONS.B ---
Consult Date of Consult: 07/23/23 Reason for Consult Patient readmitted for colon infection she is on appropriate antibiotics stent is in place kidney is decompressed has very minimal to no function in the kidney. She will have to be scheduled for a laparoscopic robotic assisted nephrectomy at some point but I think I want a wait till her bowel situation is completely resolved she can follow-up in the outpatient with me when she gets discharged the plan for this call me with questions.
[2023-07-23 09:00] VITALS: BP 166/69; PULSE 75; RESP 18; TEMP 37.1; O2SAT 94
[2023-07-23] MEDS: Ferrous Gluconate 324 MG Tablet PO (09:08)
[2023-07-23] MEDS: Pantoprazole Sodium 20 MG Tablet PO (09:08)
[2023-07-23] MEDS: Ascorbic Acid 500 MG Tablet PO (09:08)
[2023-07-23] MEDS: Ciprofloxacin 400 MG/200 ML BAG 200 MG IV ×2 (09:30→23:34)
--- NOTE | 2023-07-23 12:19 | CASEMGMT ---
Addendum entered by Karri Madrid 07/23/23 13:02: Pt states she has an appt w/Dr Burrows on 08/02. Original Note: IVAN KUHN readmission note: Prior admission: Admitted 07/16 w/ left hydronephrosis and abd pain. See IVAN KUHN Nurys assessment 07/17. Pt discharged home 07/20 w/ Rx's for antibiotics (cipro and metronidazole) to [facility] pharmacy. Current admission: Admitted 07/21 w/dx of ileus. Per Dr Burrows note: Patient readmitted for colon infection she is on appropriate antibiotics stent is in place kidney is decompressed has very minimal to no function in the kidney. She will have to be scheduled for a laparoscopic robotic assisted nephrectomy at some point but I think I want a wait till her bowel situation is completely resolved she can follow-up in the outpatient with me when she gets discharged the plan for this call me with questions. IVAN KUHN to room. Introduced self and role. Pt states she received messages from [employer] on Sunday and Sat that the Rx's were still In process and she was unable to pick them up. Then on Sun afternoon she received msg that Rx were Partially available. Pt had already returned to [facility] ED d/t temp of 102.5. She states the Rx's have become available since then and her daughter has already picked them up and they are at her (patients) home already. Pt being discharged today and states wants to get any new Rx's from [facility] retail pharmacy before leaving. [employer] updated. Pt does not have a PCP and was provided a list last admission. She states she still has the list and does not need another one and still plans to f/u with getting established w/PCP. Pt denies having any other discharge planning needs or concerns. Janice HILL RN, CM
[2023-07-23 14:19] VITALS: BP 182/72; PULSE 78; RESP 18; TEMP 37; O2SAT 95
[2023-07-23] MEDS: Nalbuphine 10 MG/ML Ampul 5 MG IV ×2 (17:08→22:34)
--- NOTE | 2023-07-23 18:39 | PN.HOSP_ITS ---
Reason for Visit Reason for Visit: Diagnoses Diverticulitis of intestine, part unspecified, without perforation or abscess w ithout bleeding (07/21/23) Tubulo-interstitial nephritis, not specified as acute or chronic (07/21/23) Crossing vessel and stricture of ureter without hydronephrosis (07/21/23) Unspecified abdominal pain (07/21/23) Subjective Subjective Patient was seen and examined today, I advanced her diet but she complained that she was still having abdominal discomfort, I decided to stop her IV Dilaudid and place her on Nubain for abdominal pain. Patient's white blood cell count today was normal, hemoglobin was 9.2. Patient's iron level 15 on 07/18/2023, I have decided to give her Venofer. Objective Data Objective Data Vital Signs: Vital Signs Temp Pulse Resp BP Pulse Ox O2 Del Method O2 Flow Rate 98.6 F 78 18 182/72 H 95 Room Air 1 07/23/23 14:19 07/23/23 14:19 07/23/23 14:19 07/23/23 14:19 07/23/23 14:19 07/23/23 14:19 07/21/23 23:01 Oxygen Flow Rate (L/min) 1 Oxygen Delivery Method Room Air Weight: 115.2 kg Body Mass Index (BMI) 43.6 Intake & Output: Intake and Output for Last 24 Hours 07/21/23 07/22/23 07/23/23 23:59 23:59 23:59 Intake Total 1050 / 1050 2834.80 / 3084.80 2785.00 / 2785.00 Balance 1050 / 1050 2834.80 / 3084.80 2785.00 / 2785.00 Lab / Micro Data 07/23/23 05:35 07/23/23 05:35 Labs: Laboratory Results - last 24 hr 07/23/23 05:35: WBC 4.8, RBC 4.09 L, Hgb 9.2 L, Hct 31.6 L, MCV 77.3 L, MCH 22.5 L, MCHC 29.1 L, RDW Std Deviation 54.2 H, RDW Coeff of Pierce 19.9 H, Plt Count 290, MPV 9.3, Immature Gran % (Auto) 0.600, Neut % (Auto) 51.5, Lymph % (Auto) 26.6, [place] % (Auto) 16.5 H, Eos % (Auto) 4.2, Baso % (Auto) 0.6, Absolute Neuts (auto) 2.5, Absolute Lymphs (auto) 1.27, Nucleated RBC % 0, Sodium 143, Potassium 3.7, Chloride 112 H, Carbon Dioxide 26.0, Anion Gap 5, BUN 6 L, Creatinine 0.70, Estim Creat Clear Calc 83.03, Est GFR (MDRD) Af Amer 114, Est GFR (MDRD) Non-Af 94, BUN/Creatinine Ratio 8.6 L, Glucose 91, Calcium 8.2 L Micro: Microbiology 07/21/23 18:07 Urine, Clean Catch Urine Culture - Final Culture exhibits no growth. 07/21/23 17:41 Nasal Secretion SARS-CoV-2 Antigen (Rapid) - Final Rhythm Strip Rhythm Strip: Sinus Tach Rate: 107 Ectopy: None Physical Exam Const alert, oriented x3, no apparent distress and average body habitus General Appearance: cooperative, well kempt and well developed Orientation / Consciousness: awake, oriented to person, oriented to place and oriented to time HEENT normocephalic, head/scalp atraumatic and moist oral mucous membranes Eyes PERRL, EOMs intact bilaterally and conjunctivae normal Neck supple, no JVD, thyroid normal and no carotid bruits General: trachea midline Resp normal respiratory effort, no retractions, no use of accessory muscles and clear to auscultation bilaterally Auscultation: Negative for rales, rhonchi or wheezes Cardio regular rate, regular rhythm, S1 normal heart sound, S2 normal heart sound, no murmurs, no rub and no gallops GI normal to inspection, nondistended, normoactive bowel sounds, soft to palpation and non-distended GI Narrative: Mild diffuse abdominal tenderness to palpation is noted Extremity no clubbing, cyanosis or edema Skin no rashes or lesions noted General Skin Exam: no breakdown Neuro oriented x3, CN's II-XII intact bilaterally, no focal motor deficits and no sensory deficits noted Sensorium / Orientation: awake and alert Speech: speech normal Psych affect normal Assessment & Plan Assessment/Plan (1) Acute diverticulitis: PLAN: Plan 1. Acute diverticulitis-patient will remain on Cipro and Flagyl, she will be reevaluated tomorrow for possible discharge #2 left hydronephrosis with renal atrophy-patient will need to undergo a left nephrectomy as an outpatient #3 iron deficiency anemia-patient will be given IV Venofer Total clinical time spent by myself addressing the patient's medical issues, reviewing all of her data, and collaborating with patient's care team: 25 minutes Charges/Coding Visit Charges Inpatient E&M: 65549 Subs Hosp L2
[2023-07-23] MEDS: Sodium Ferric Gluconat/Sucrose 250 MG in 0.9% Normal Saline (250mL Bag) 250 ML 135 MG IV (19:51)
[2023-07-23 20:01] VITALS: BP 155/68; PULSE 76; RESP 16; TEMP 37; O2SAT 94
[2023-07-23] MEDS: proCHLORPERazine 10 MG/2 ML Vial 5 MG IV (21:21)
[2023-07-24] MEDS: 0.9% Normal Saline (1000mL) 1,000 ML 100 ML IV (02:01)
[2023-07-24 04:30] VITALS: BP 120/73; PULSE 64; RESP 18; TEMP 36.3; O2SAT 95
[2023-07-24] MEDS: metroNIDAZOLE 500 MG/100 ML BAG 100 MG IV (05:04)
[2023-07-24 07:09] LABS: Absolute Lymphocyte Count 1.15 X10^3/uL (0.83-4.51); Absolute Neutrophil Count 3.8 X10^3/uL (2.0-7.7); Basophil# 0.03 X10^3/uL; Basophil% 0.5 % (0-1); Eosinophils% 3.4 % (0-5); Hematocrit 32.9 % (37-47); Hemoglobin 9.9 g/dL (12.0-15.0); Lymphocyte # 1.15 X10^3/ul (0.83-4.51); Lymphocyte % 19.7 % (19-41); Mean Corp Hgb Conc 30.1 g/dL (32-36); Mean Corpuscular Hgb 23.1 pg (27.0-32.0); Mean Corpuscular Volume 76.9 fL (81-99); Monocyte# 0.59 X10^3/uL; Monocyte% 10.1 % (0-10); NRBC Flagged by Analyzer 0 % (0-5); Neutrophil # 3.84 X10^3/uL (2.7-7.7); Neutrophil % 65.6 % (47-70); POSITIVE MORPHOLOGY YES; Platelet Count 287 K/mm3 (150-450); RBC Distribution Width CV 19.8 % (11.6-14.6); RBC Distribution Width SD 53.5 fl (35.1-43.9); Red Blood Count 4.28 M/mm3 (4.2-5.4); White Blood Count 5.9 K/mm3 (4.4-11.0)
[2023-07-24 07:16] LABS: Differential Indicated SCAN CRITERIA MET
[2023-07-24 07:36] LABS: Reactive Lymphocyte RARE
[2023-07-24 08:21] VITALS: BP 146/84; PULSE 74; RESP 18; TEMP 37.1; O2SAT 97
[2023-07-24] MEDS: Ondansetron 4 MG/2 ML Vial IV (08:29)
[2023-07-24] MEDS: 0.9% Saline Lock 10 ML Syringe IV ×2 (08:29→13:18)
[2023-07-24] MEDS: Nalbuphine 10 MG/ML Ampul 5 MG IV (08:29)
[2023-07-24] MEDS: Pantoprazole Sodium 20 MG Tablet PO (08:30)
[2023-07-24] MEDS: Ascorbic Acid 500 MG Tablet PO (08:30)
[2023-07-24] MEDS: Ferrous Gluconate 324 MG Tablet PO (08:30)
[2023-07-24] MEDS: Ciprofloxacin 400 MG/200 ML BAG 200 MG IV (09:42)
[2023-07-24] MEDS: Sodium Ferric Gluconat/Sucrose 250 MG in 0.9% Normal Saline (250mL Bag) 250 ML 135 MG IV (10:44)
--- NOTE | 2023-07-24 11:32 | DCINST_ITS ---
Discharge Instructions Diet Discharge Diet: - (low fiber diet for the next two weeks) Activity Discharge Activity: Return to Normal Activity Weight Bearing Status: Full weight bearing Follow Up Care Test Results: Test results from this visit will be discussed in further detail at your follow- up appointment, if applicable. Discharge Plan Admission Admit Date/Time: 07/21/23 22:38 Primary Reason for Your Visit: diverticulitis Attending Provider: Derek White Primary Care Provider: Care Physician,No Primary Consulting Providers: Anthony Pérez; Jake Bryant Instructions Additional Instructions / Restrictions: follow up with [facility] as scheduled Discharge Orders/Prescriptions Prescriptions: New fluconazole [Diflucan] 100 mg tablet 100 mg PO DAILY Qty: 10 0RF Continued lansoprazole 15 mg Capsule,Delayed Release(Dr/Ec) 15 mg PO DAILY metronidazole 500 mg tablet 500 mg PO TID 5 Days Qty: 15 0RF Hold Instructions: Pt has been DC'd ferrous gluconate 324 mg (38 mg iron) tablet 324 mg PO DAILY Qty: 30 0RF Hold Instructions: Pt has been DC'd ascorbic acid (vitamin C) [C-500] 500 mg tablet 500 mg PO DAILY Qty: 30 0RF Hold Instructions: Pt has been DC'd Rx Instructions: Take with iron tablet Discontinued ciprofloxacin HCl 500 mg tablet 500 mg PO BID 5 Days Qty: 10 0RF Hold Instructions: Pt has been DC'd Referrals / Follow Up: Care Physician,No Primary [Primary Care Provider] - Within 2 Weeks (Please make a follow up appointment with [facility]. Phone number [phone]) Disposition Disposition (needs filled in before D/C Order can be placed): Home, Self Care
--- NOTE | 2023-07-24 11:39 | DS.PCM_ITS ---
Providers Date of Admission: 07/21/23 Date of Discharge: 07/24/23 Primary Care Physician: No Primary Care Phys Reason For Visit: ILEUS Diagnosis Discharge Diagnosis (1) Acute diverticulitis: Status: Acute Code(s): K57.92 - Diverticulitis of intestine, part unspecified, without perforation or abscess without bleeding Plan 1. Acute diverticulitis-patient will remain on Cipro and Flagyl, she will be re evaluated tomorrow for possible discharge #2 left hydronephrosis with renal atrophy-patient will need to undergo a left nephrectomy as an outpatient #3 iron deficiency anemia-patient will be given IV Venofer Total clinical time spent by myself addressing the patient's medical issues, reviewing all of her data, and collaborating with patient's care team: 25 minutes Medications at Discharge Home Medications lansoprazole 15 mg capsule,delayed release 15 mg PO DAILY GERD 10/31/21 ascorbic acid (vitamin C) 500 mg tablet (C-500) 500 mg PO DAILY #30 tabs 07/20/23 ferrous gluconate 324 mg (38 mg iron) tablet 324 mg PO DAILY #30 tabs 07/20/23 metronidazole 500 mg tablet 500 mg PO TID 5 days #15 tabs 07/20/23 fluconazole 100 mg tablet (Diflucan) 100 mg PO DAILY #10 tabs 07/24/23 amoxicillin 875 mg-potassium clavulanate 125 mg tablet 875 mg (0.875 x 875-125 mg) PO Q12H #10 TABLETS 07/26/23 sulfamethoxazole 800 mg-trimethoprim 160 mg tablet 1 tab PO BID #10 TABLETS 07/26/23 Hospital Course Operations None Procedures None Summary of Care Provided Minutes Spent on Discharge: 31 Hospital Course: This 52-year-old white female was seen in the emergency room at [facility] with complaints of fever, worsening left flank pain, nausea, vomiting, and headache. Patient had undergone a stent placement to her left kidney the day before, she stated that she was unable to obtain antibiotics prescribed to her from her pharmacy. Patient had a recent diagnosis of diverticulitis. CBC was performed which showed a normal white blood cell count, urine was negative for nitrates, positive for 10-25 red blood cells and 5-10 white blood cells along with +[address] of the abdomen and pelvis was obtained which showed a decompressed left kidney with some residual perinephric stranding, there was noted to be dilation of the proximal small bowel which might indicate an ileus. Patient was started on IV Zosyn, general surgery was contacted and did not feel the patient had a bowel obstruction. Patient was admitted to [place] [address], placed on IV fluids and antibiotics, her overall medical condition improved during her hospitalization. Patient was given IV iron infusion due to her iron deficiency anemia during this hospitalization. On 07/24/2023, patient was seen and examined: On examination she appeared in good health and spirits, she does not appear to be in any distress. Vital signs as documented. Skin warm and dry and without overt rashes. Neck without JVD, thyroid appears normal, trachea is midline, neck is supple. Lungs clear, normal air movement was noted. Heart exam notable for regular rhythm, normal sounds and absence of murmurs, rubs or gallops. Abdomen unremarkable and without evidence of organomegaly, masses, or abdominal aortic enlargement, bowel sounds are present in all 4 quadrants, no abdominal tenderness was noted. Extremities nonedematous, no cyanosis was noted, no clubbing was noted. Neuro: Cranial nerves II through XII are grossly intact, no focal motor deficits were noted, sensation to light touch and pinprick is intact, motor exam 5/5 throughout. Psych: Patient is alert and oriented x3, she does not appear anxious or depressed, she does not appear agitated. Patient was discharged home in stable condition on 07/24/2023. Weight / BMI Weight Weight: 115.2 kg Body Mass Index (BMI) 43.6 ABG / Lab / Microbiology Data 07/24/23 06:35 07/23/23 05:35 Laboratory: Laboratory Results - last 24 hr 07/24/23 06:35: WBC 5.9, RBC 4.28, Hgb 9.9 L, Hct 32.9 L, MCV 76.9 L, MCH 23.1 L , MCHC 30.1 L, RDW Std Deviation 53.5 H, RDW Coeff of Pierce 19.8 H, Plt Count 287, MPV 9.0, Immature Gran % (Auto) 0.700, Neut % (Auto) 65.6, Lymph % (Auto) 19.7, [place] % (Auto) 10.1 H, Eos % (Auto) 3.4, Baso % (Auto) 0.5, Absolute Neuts (auto) 3.8, Absolute Lymphs (auto) 1.15, Nucleated RBC % 0, Reactive Lymphocytes RARE Microbiology: Microbiology 07/21/23 18:07 Urine, Clean Catch Urine Culture - Final Culture exhibits no growth. 07/21/23 17:41 Nasal Secretion SARS-CoV-2 Antigen (Rapid) - Final D/C Instructions Discharge Diet: - (low fiber diet for the next two weeks) Weight Bearing Status: Full weight bearing Meaningful Use Info Meaningful Use Diagnoses (Choose all that apply): None applicable Discharge Plan Admission Admit Date/Time: 07/21/23 22:38 Primary Reason for Your Visit: diverticulitis Attending Provider: Derek White Primary Care Provider: Care Physician,Carole Primary Consulting Providers: Anthony Pérez; Jake Bryant Instructions Additional Instructions / Restrictions: follow up with [facility] as scheduled Discharge Orders/Prescriptions Prescriptions: New fluconazole [Diflucan] 100 mg tablet 100 mg PO DAILY Qty: 10 0RF Continued lansoprazole 15 mg Capsule,Delayed Release(Dr/Ec) 15 mg PO DAILY metronidazole 500 mg tablet 500 mg PO TID 5 Days Qty: 15 0RF Hold Instructions: Pt has been DC'd ferrous gluconate 324 mg (38 mg iron) tablet 324 mg PO DAILY Qty: 30 0RF Hold Instructions: Pt has been DC'd ascorbic acid (vitamin C) [C-500] 500 mg tablet 500 mg PO DAILY Qty: 30 0RF Hold Instructions: Pt has been DC'd Rx Instructions: Take with iron tablet Discontinued ciprofloxacin HCl 500 mg tablet 500 mg PO BID 5 Days Qty: 10 0RF Hold Instructions: Pt has been DC'd No Action sulfamethoxazole-trimethoprim [sulfamethoxazole-trimethoprim] 800-160 mg tablet 1 tab PO BID Qty: 10 0RF amoxicillin-pot clavulanate [amoxicillin-pot clavulanate] 875-125 mg tablet 875 mg PO Q12H Qty: 10 0RF Referrals / Follow Up: Care Physician,No Primary [Primary Care Provider] - Within 2 Weeks (Please make a follow up appointment with [facility]. Phone number [phone]) Disposition Disposition (needs filled in before D/C Order can be placed): Home, Self Care Charges/Coding Visit Charges Inpatient E&M: 91113 Disch Hosp >30min
--- NOTE | 2023-07-24 11:55 | CASEMGMT ---
Addendum entered by Nurys Baxter 07/24/23 13:35: Pt ready for dc, pt aware RN HATTIE will call her when appt determined at [facility]. Original Note: Hospitalist requests pt to have an appt with [facility] set up in 2wks. RN CM into pt room, pt states she prefers the appt in the latest of the afternoon as possible. TC to [facility], left message with hr receptionist with request for appt and returned call.
[2023-07-24 13:18] VITALS: BP 166/72; PULSE 69; RESP 18; TEMP 36.6; O2SAT 97
--- NOTE | 2023-07-25 12:05 | CASEMGMT ---
Received tc back from [facility] brennan Danielle scheduled for Aug.08 at 4pm. TC to pt to make aware, left message for pt to call RN CM back.
== END 2023-07-24 15:15 | disposition home or self-care (01) | DRG 392 ==
LOC: ED 17:34 → MS3 23:16
PROVIDERS: Family Medicine; Admitting Provider Hospitalist; Emergency Provider Emergency Medicine; Visit Provider Internal Medicine
DX: K57.92 Diverticulitis of intestine, part unspecified, without perforation or abscess without bleeding (principal); K56.7 Ileus, unspecified; N13.30 Unspecified hydronephrosis; N12 Tubulo-interstitial nephritis, not specified as acute or chronic; I10 Essential (primary) hypertension; D50.9 Iron deficiency anemia, unspecified; K21.9 Gastro-esophageal reflux disease without esophagitis; N26.1 Atrophy of kidney (terminal); N28.89 Other specified disorders of kidney and ureter
CPT/HCPCS: 36415; 71045; 74177; 80048; 80053; 81001; 83605; 85025; 85610; 85730; 87040; 87086; 87811; 93005; 97802; 99285; J7030; J7040; J7050; Q9967; A4216; J0744; J2405; J2916

== ENCOUNTER 2023-07-26 07:57 | Emergency (ER) | payer OTHER, MEDICAID, SELFPAY ==
[2023-07-26 07:59] VITALS: BP 157/89; PULSE 100; RESP 16; TEMP 36.6; O2SAT 98; BMI 41.8
--- NOTE | 2023-07-26 08:01 | EX.ED.DYSGE1 ---
HPI History of Present Illness Chief Complaint: Cellulitis Detail of Chief Complaint: Cellulitis right antecubital fossa Informant: patient Onset/Context/Timing Onset: Yesterday Context: Sudden Onset Timing: Continuous Quality: Redness, pain and palpable mass Location: Antecubital fossa Current Severity: Moderate Maximum Severity: Moderate Worsened by: Palpation Relieved by: Nothing Associated Symptoms Associated Symptoms: Note documented fever or shaking chills Narrative Narrative: Patient is a 52-year-old woman who was recently admitted for acute diverticulitis. She was placed on ciprofloxacin and metronidazole. Patient had an IV in her right antecubital fossa. IV site is easily identified. Patient denies history medic fever, heart murmur, mitral prolapse or being immune suppressed. Patient was discharged on July 24. Patient has no other complaints. Prior similar symptoms: No Recent Illness/Hospitalization: Yes PFSH REPLACED BY [facility] Medical History Alcohol use Back pain Difficulty swallowing Gastric reflux Herniated nucleus pulposus, L5-S1 History of diverticulitis History of hiatal hernia History of pain when walking Hypertension Injury of back Marijuana use Wears glasses Home Medications lansoprazole 15 mg capsule,delayed release 15 mg PO DAILY GERD 10/31/21 [History Last Taken 07/15/23] ascorbic acid (vitamin C) 500 mg tablet (C-500) 500 mg PO DAILY #30 tabs 07/20/23 [Rx Last Taken Unknown] ferrous gluconate 324 mg (38 mg iron) tablet 324 mg PO DAILY #30 tabs 07/20/23 [Rx Last Taken Unknown] metronidazole 500 mg tablet 500 mg PO TID 5 days #15 tabs 07/20/23 [Rx Last Taken Unknown] fluconazole 100 mg tablet (Diflucan) 100 mg PO DAILY #10 tabs 07/24/23 [Rx Last Taken Unknown] amoxicillin 875 mg-potassium clavulanate 125 mg tablet 875 mg (0.875 x 875-125 mg) PO Q12H #10 TABLETS 07/26/23 [Rx Last Taken Unknown] sulfamethoxazole 800 mg-trimethoprim 160 mg tablet 1 tab PO BID #10 TABLETS 07/26/23 [Rx Last Taken Unknown] Allergy/AdvReac Type Severity Reaction Status Date / Time acetaminophen [From Vicodin] Allergy vomit, SOB Verified 07/26/23 07:59 clarithromycin [From Biaxin] Allergy vomit, SOB Verified 07/26/23 07:59 hydrocodone [From Vicodin] Allergy vomit, SOB Verified 07/26/23 07:59 oxycodone Allergy Shortness Verified 07/26/23 07:59 of breath Family History Other Cancer Diabetes Heart disease Surgical History History of carpal tunnel release of both wrists History of surgery Hx laparoscopic cholecystectomy Hx of appendectomy Hx of section Hx of shoulder surgery Hx of tonsillectomy Hx of tubal ligation Social History (Updated 07/26/23 @ 08:[address] Woo Gibson MD) household members: none Smoking Status: Never smoker alcohol intake: current substance use type: does not use ROS ROS ED Constitutional Constitutional ED: Denies chills, fever(s), subjective or sweats Eyes Eyes: Denies blurry vision, change in vision or diplopia ENT ENT ED: Denies rhinorrhea or sore throat Cardiovascular Cardiovascular: Denies chest pain or palpitations Respiratory/Chest Respiratory/Chest: Denies cough, dyspnea or dyspnea on exertion Gastrointestinal Gastrointestinal: Denies diarrhea, nausea or vomiting Musculoskeletal Musculoskeletal: Denies arthralgias or myalgias Integumentary Reports rash Hematologic/Lymphatic Hematologic/Lymphatic: Reports systems reviewed and no addt'l complaints, except as documented EXAM Physical Exam Const Vital Signs: 07/26/23 07:59 Temperature 97.9 F Temperature Source Temporal Pulse Rate 100 Respiratory Rate 16 Blood Pressure 157/89 H Blood Pressure Mean 111 Pulse Ox 98 Oxygen Delivery Method Room Air Positive well nourished, well developed and obese General Appearance ED: well developed and NAD; Negative for cyanotic, diaphoretic or pallor Nutritional Appearance: obese HEENT Reports moist mucous membranes HEENT Narrative: Head is normocephalic and atraumatic. Ears are normal. Nares are patent. Eyes PERRL and EOMs intact bilaterally General Eye ED: Negative for pale conjunctiva or scleral icterus Neck no lymphadenopathy, supple and no JVD Resp normal respiratory effort and clear to auscultation bilaterally Cardio regular rate, regular rhythm, S1 normal heart sound, S2 normal heart sound and no murmurs Extremity Negative for normal to inspection Extremity Narrative: Evidence of lymphangitis and possible cellulitis with superficial phlebitis at IV site. There is no axillary lymphadenopathy. The area is warm and erythematous. There is slight induration. The margins were demarcated with dots. The thick purple lines represent the superficial phlebitis and there is a thin purple line which represented the lymphangitis. Neuro oriented x3, CN's II-XII intact bilaterally and no sensory deficits noted Sensorium / Orientation: alert Motor Exam: strength 5/5 throughout Psych mental status grossly normal Skin No no rashes or lesions noted and skin turgor normal General Skin Exam: Negative for jaundice or pallor MDM MDM MDM Narrative Medical decision making narrative: Prior records reviewed. Patient was recently minute for acute diverticulitis. She was discharged on ciprofloxacin metronidazole. Patient has evidence of a superficial Vitas with probable cellulitis since there is lymphangitis. There is no lymphadenopathy. Since patient bite is under and denies documented fever at home. She states her temperature last evening was 99.6. We will change antibiotics to cover both organisms for diverticulitis as well as dermatologic infection and specifically streptococcal and staphylococcal organisms. Patient is instructed discontinue the ciprofloxacin and metronidazole. She was prescribed Augmentin and Bactrim DS. History & Record Review Discussion w/independent historian: Patient Additional record(s) reviewed:: Prior inpatient record, Prior ED visit and Prior labs Discharge Plan Triage Chief Complaint: Cellulitis ED Provider: Woo Gibson Dx/Rx/DC Orders Clinical Impression: Phlebitis and thrombophlebitis of superficial veins of upper extremities, Acute diverticulitis, Cellulitis of right upper extremity, Acute lymphangitis of right upper extremity Instructions: ED Cellulitis, ED Thrombophlebitis, Superficial Prescriptions: New sulfamethoxazole-trimethoprim [sulfamethoxazole-trimethoprim] 800-160 mg tablet 1 tab PO BID Qty: 10 0RF amoxicillin-pot clavulanate [amoxicillin-pot clavulanate] 875-125 mg tablet 875 mg PO Q12H Qty: 10 0RF No Action lansoprazole 15 mg Capsule,Delayed Release(Dr/Ec) 15 mg PO DAILY fluconazole [Diflucan] 100 mg tablet 100 mg PO DAILY Qty: 10 0RF metronidazole 500 mg tablet 500 mg PO TID 5 Days Qty: 15 0RF Hold Instructions: Pt has been DC'd ferrous gluconate 324 mg (38 mg iron) tablet 324 mg PO DAILY Qty: 30 0RF Hold Instructions: Pt has been DC'd ascorbic acid (vitamin C) [C-500] 500 mg tablet 500 mg PO DAILY Qty: 30 0RF Hold Instructions: Pt has been DC'd Rx Instructions: Take with iron tablet Primary Care Provider: Care Physician,No Primary Referrals: Care Physician,No Primary [Primary Care Provider] - Activity Restrictions/Additional Instructions: 1. Discontinue taking the ciprofloxacin and metronidazole you prescribed by the hospitalist when you were discharged 2 days ago 2. Take the Augmentin and Bactrim until gone 3. Have your right upper extremity reevaluated in 2 days at [facility]. If they are closed please return to the emergency department Disposition Disposition: Home, Self Care
[2023-07-26] MEDS: Amox/Clavulanate 875 MG Tablet PO (08:33)
[2023-07-26] MEDS: Smz/Tmp Ds Tablet 1 TABLET PO (08:33)
== END 2023-07-26 08:39 | disposition home or self-care (01) ==
PROVIDERS: Emergency Provider Emergency Medicine; Visit Provider Emergency Medicine
DX: I80.8 Phlebitis and thrombophlebitis of other sites (principal); L03.113 Cellulitis of right upper limb; K57.92 Diverticulitis of intestine, part unspecified, without perforation or abscess without bleeding; L03.123 Acute lymphangitis of right upper limb; I10 Essential (primary) hypertension; K21.9 Gastro-esophageal reflux disease without esophagitis; Z90.49 Acquired absence of other specified parts of digestive tract
CPT/HCPCS: 99284

== ENCOUNTER 2023-07-27 10:45 | Emergency (ER) | payer OTHER, MEDICAID, SELFPAY ==
[2023-07-27 10:46] VITALS: BP 157/77; PULSE 96; RESP 14; TEMP 36.4; O2SAT 100; BMI 41.1
[2023-07-27 10:55] VITALS: BP 157/77; PULSE 103; RESP 16; TEMP 36.6
--- NOTE | 2023-07-27 11:14 | VDUE_ITS ---
Reason For Study: RUE Pain Right Proximal Left Proximal Right jugular vein is spontaneous, widely Left subclavian vein is spontaneous, widely patent, phasic, with no intraluminal patent, phasic, with no intraluminal echogenicity noted. echogenicity noted. Right subclavian vein is spontaneous, widely patent, phasic, with no intraluminal echogenicity noted. Right Lower Arm Right radial vein is compressible. Right ulnar vein is compressible. Right Arm Right axillary vein is spontaneous, patent, phasic, competent, compressible and demonstrates augmentation. Right brachial vein is compressible. Cephalic vein intraluminal echogenicity extends fromMid Bicep to Prox forearm.. Median Cubital V and Cephalic V are Dilated and NONCOMPRESSIBLE with intraluminal echogenicity noted at AC. Right basilic vein is compressible. Patient Safety Preliminary results given to ED IVAN Manuel. VL/Venous Duplex US, Unilateral Interpretation Summary Acute superficial vein thrombosis noted in the right median cubital vein and ri ght cephalic vein Ordering Physician: Yimi De La Cruz Referring Physician: N/A Performed By: Chaka Kamara RVT ???
--- NOTE | 2023-07-27 11:15 | EX.ED.UPPERE ---
HPI History of Present Illness HPI Narrative: Female right upper extremity discomfort and recent diagnosis of superficial thrombophlebitis after an IV in her right arm after recent hospitalization. Patient is currently on Bactrim and Augmentin. Chief Complaint: Wound Informant: patient and spouse/S.O. Onset/Context/Timing Onset: Days Context: Gradual Onset Timing: Continuous Current Severity: Mild Maximum Severity: Mild Narrative Narrative: [id number] female recent hospitalization for urologic procedure. Had an IV placed. IV was and Sunday to Sunday. Given Emergency Department yesterday. Was diagnosed with superficial thrombophlebitis. Was started on Bactrim and Augmentin. It is a little worse today. They wanted it re-evaluated. Prior similar symptoms: Yes Recent Illness/Hospitalization: Yes PFSH PFSH Medical History Alcohol use Back pain Difficulty swallowing Gastric reflux Herniated nucleus pulposus, L5-S1 History of diverticulitis History of hiatal hernia History of pain when walking Hypertension Injury of back Marijuana use Wears glasses Home Medications lansoprazole 15 mg capsule,delayed release 15 mg PO DAILY GERD 10/31/21 [History Last Taken 07/15/23] ascorbic acid (vitamin C) 500 mg tablet (C-500) 500 mg PO DAILY #30 tabs 07/20/23 [Rx Last Taken Unknown] ferrous gluconate 324 mg (38 mg iron) tablet 324 mg PO DAILY #30 tabs 07/20/23 [Rx Last Taken Unknown] metronidazole 500 mg tablet 500 mg PO TID 5 days #15 tabs 07/20/23 [Rx Last Taken Unknown] fluconazole 100 mg tablet (Diflucan) 100 mg PO DAILY #10 tabs 07/24/23 [Rx Last Taken Unknown] amoxicillin 875 mg-potassium clavulanate 125 mg tablet 875 mg (0.875 x 875-125 mg) PO Q12H #10 TABLETS 07/26/23 [Rx Last Taken Unknown] sulfamethoxazole 800 mg-trimethoprim 160 mg tablet 1 tab PO BID #10 TABLETS 07/26/23 [Rx Last Taken Unknown] Allergy/AdvReac Type Severity Reaction Status Date / Time acetaminophen [From Vicodin] Allergy vomit, SOB Verified 07/27/23 10:47 clarithromycin [From Biaxin] Allergy vomit, SOB Verified 07/27/23 10:47 hydrocodone [From Vicodin] Allergy vomit, SOB Verified 07/27/23 10:47 oxycodone Allergy Shortness Verified 07/27/23 10:47 of breath Family History Other Cancer Diabetes Heart disease Surgical History History of carpal tunnel release of both wrists History of surgery Hx laparoscopic cholecystectomy Hx of appendectomy Hx of section Hx of shoulder surgery Hx of tonsillectomy Hx of tubal ligation Social History household members: none Smoking Status: Never smoker alcohol intake: current substance use type: does not use ROS ROS ED ROS Narrative Chronic diarrhea. Review of Systems ROS Unobtainable: Denies due to encephalopathy Constitutional Constitutional ED: Denies chills or fever(s) Eyes Eyes: Denies blurry vision ENT ENT ED: Denies ear pain Cardiovascular Cardiovascular: Denies chest pain Respiratory/Chest Respiratory/Chest: Denies cough or dyspnea Gastrointestinal Gastrointestinal: Denies abdominal pain Genitourinary Genitourinary ED: Denies dysuria or hematuria Musculoskeletal Musculoskeletal: Denies back pain or myalgias Integumentary Denies abscess or Abrasions Neurologic Neurologic: Denies headache(s) Psychiatric Psychiatric: Denies anxiety Endocrine Endocrinology: Denies cold intolerance Hematologic/Lymphatic Hematologic/Lymphatic: Denies easy bleeding or easy bruising Allergic/Immunologic Allergic/Immunologic ED: Denies mouth swelling or tongue swelling EXAM Physical Exam Narrative Exam Narrative: Thank 52-year-old female. Vital signs stable afebrile. H EENT exam unremarkable. Neck nontender no lymphadenopathy. Lungs clear to auscultation bilateral. Heart regular rhythm no murmur. Abdomen soft nontender normal bowel sounds no peritoneal signs. Moves all 4 extremities. Neurovascular intact. Right arm and antecubital area is tender mildly swollen bruised. Consistent with a superficial thrombophlebitis. There is no lymphangitic streaking. There is no axillary lymphadenopathy. Right hand is neurovascular intact with normal radial pulse. There is no distal swelling. Const Vital Signs: 07/27/23 10:46 07/27/23 10:55 Temperature 97.6 F L 97.9 F Temperature Source Temporal Oral Pulse Rate 96 103 H Respiratory Rate 14 16 Blood Pressure 157/77 H 157/77 H Blood Pressure Mean 103 103 Pulse Ox 100 Oxygen Delivery Method Room Air Positive well nourished and well developed; Negative for cachectic, contractures or unkempt General Appearance ED: well developed and NAD; Negative for unkempt, cachectic, contractures, cyanotic or diaphoretic Nutritional Appearance: Negative for cachectic HEENT Reports moist mucous membranes normocephalic and atraumatic; Negative for trauma or tenderness Eyes PERRL and EOMs intact bilaterally General Eye ED: Negative for other Neck full ROM and supple General: Negative for tenderness Lymph Lymphatic: Negative for other Chest Wall inspection of chest normal and palpation of chest normal Chest: Negative for other Resp normal respiratory effort and clear to auscultation bilaterally Effort and Inspection: Negative for pain with movement Auscultation: Negative for rales, rhonchi or wheezes Cardio regular rate, regular rhythm, S1 normal heart sound, S2 normal heart sound and no murmurs Rate: Negative for bradycardia or tachycardic GI non-tender, non-distended and no masses Inspection: Negative for abdominal distention Auscultation: normoactive bowel sounds Palpation: soft; Negative for tender or guarding Bladder / Kidney Exam: No other Extremity normal to inspection and full ROM Extremity Narrative: Except right antecubital area tender, swollen discovered consistent with a superficial thrombophlebitis. Distally the right hand is neurovascular intact with normal radial pulse. Client Renewal Specialist strength. No distal edema. Neuro oriented x3, CN's II-XII intact bilaterally, moves all extremities and no focal motor deficits Sensorium / Orientation: alert, oriented to person, oriented to place and oriented to time; Negative for orientation impaired, lethargic or stuporous Motor Exam: strength 5/5 throughout Psych mental status grossly normal Appearance: Negative for unkempt Attitude: No agitated Mood & Affect: Negative for depressed, anxious or tearful Skin Lesions: no lesions Trauma: no lacerations or abrasions MDM MDM MDM Narrative Medical decision making narrative: 52-year-old female with a right antecubital superficial thrombophlebitis. Already on antibiotics which is started yesterday. Ultrasound will be obtained to rule out a deep venous thrombosis. A.m. unchanged at 12 noon. Discharged home. Continue current antibiotics. Warm compresses. Ibuprofen. Follow-up with [facility]. Discharge Plan Triage Chief Complaint: Wound ED Provider: Yimi De La Cruz Dx/Rx/DC Orders Clinical Impression: Superficial thrombophlebitis Instructions: ED Thrombophlebitis, Superficial Prescriptions: No Action lansoprazole 15 mg Capsule,Delayed Release(Dr/Ec) 15 mg PO DAILY fluconazole [Diflucan] 100 mg tablet 100 mg PO DAILY Qty: 10 0RF sulfamethoxazole-trimethoprim [sulfamethoxazole-trimethoprim] 800-160 mg tablet 1 tab PO BID Qty: 10 0RF amoxicillin-pot clavulanate [amoxicillin-pot clavulanate] 875-125 mg tablet 875 mg PO Q12H Qty: 10 0RF metronidazole 500 mg tablet 500 mg PO TID 5 Days Qty: 15 0RF Hold Instructions: Pt has been DC'd ferrous gluconate 324 mg (38 mg iron) tablet 324 mg PO DAILY Qty: 30 0RF Hold Instructions: Pt has been DC'd ascorbic acid (vitamin C) [C-500] 500 mg tablet 500 mg PO DAILY Qty: 30 0RF Hold Instructions: Pt has been DC'd Rx Instructions: Take with iron tablet Primary Care Provider: Care Physician,No Primary Referrals: [facility] [Non-Staff] - 3-5 Days if not improving Care Physician,No Primary [Primary Care Provider] - Activity Restrictions/Additional Instructions: Continue both antibiotics Follow-up with primary care provider to ensure this is improving. Warm compresses. Motrin for pain and inflammation. Disposition Disposition: Home, Self Care
== END 2023-07-27 12:17 | disposition home or self-care (01) ==
PROVIDERS: Emergency Provider Emergency Medicine; Visit Provider Emergency Medicine
DX: I80.8 Phlebitis and thrombophlebitis of other sites (principal); I10 Essential (primary) hypertension; K21.9 Gastro-esophageal reflux disease without esophagitis; Z90.49 Acquired absence of other specified parts of digestive tract
CPT/HCPCS: 93971; 99282

== ENCOUNTER 2023-08-29 10:33 | Inpatient (IN) | payer MEDICAID, SELFPAY ==
[2023-08-29] VITALS (11 sets, daily range): BP systolic 109–181; BP diastolic 66–113; PULSE 18–110; RESP 16–18; TEMP 36.6–37.2; O2SAT 3–99; BMI 41.5
[2023-08-29] MEDS: Lactated Ringers 1,000 ML 15 ML IV (11:03)
--- NOTE | 2023-08-29 12:45 | KID_PTH ---
PATIENT: PIERO XIE LOC: [facility] U#:[id number] AGE/SX: 52/F ROOM: [facility] RE08/29/[address]: Dr. Chad Burrows MD : 1970 BED: 1 DIS: 09/01/2023 SPEC #: [id number] RECD: 08/29/23 18:25 STATUS: BOUBACAR TRUMAN #: [id number] ML: 08/29/23 12:[address]: Chad Burrows DEPT: SURGICAL PATHOLOGY RECD BY: Bell Velazquez ENTERED: 08/30/23 08:27 SP TYPE: KIDNEY OTHR DR: No Primary Care Phys Tissues: Kidney, NOS Procedures: Surgery Specimen Level V HEADER OPERATION: Left lap robotic nephrectomy with stent removal PRE-OP DIAGNOSIS: Obstructive defects of renal pelvis and ureter TISSUE SUBMITTED: Left kidney MICROSCOPIC DIAGNOSIS Left kidney, radical nephrectomy: Marked atrophy of kidney. Chronic pyelonephritis. Marked arterionephrosclerosis. No evidence of malignancy. AM:bridger 09/03/2023 COMMENT Case has been reviewed in consultation with Dr. Doyle who concurs with the above diagnosis. IDC:ELISE MICROSCOPIC DESCRIPTION Slides are reviewed. GROSS DESCRIPTION Received in fixative is one container labeled with the patient's name and designated left kidney. The specimen consists of a nephrectomy specimen consisting of kidney with perirenal adipose tissue weighing 303 gm and measures 15.0 x 10.0 x 4.5 cm. The external surface is inked black. Segment of ureter measures 1.5 cm in length. More dictation will follow after fixation. / ELISE:bridger 08/30/2023 Sections of the ureter reveal it is filled with bloody fluid. No mass lesion is identified. Renal pelvis and renal calyces are markedly dilated occupying the entire kidney. Renal cortex is markedly atrophic. No mass lesion is identified. Care Navigator sections are submitted in ten cassettes as follows: 1 - ureteric and vascular resection margin, 2 & 3 - rest of the ureter, 4 - renal pelvis and renal sinus area, 5-10 - retail field representative sections including dilated renal pelvis, calyces and atrophic renal cortex, perirenal adipose tissue. / SJ:bridger 08/31/2023 TC:3 CPT: 73746
[2023-08-29] MEDS: Cefazolin 2 GM in 0.9% Normal Saline (100mL Bag) 100 ML IV (13:58)
--- NOTE | 2023-08-29 16:57 | DCINST_ITS ---
Discharge Instructions Diet Discharge Diet: No restrictions, Light diet - advance as tolerated and Soft diet Activity Discharge Activity: May Not Drive and May Shower May resume sexual activity in: 6-8 weeks Lifting Restrictions: No lifting for 6 weeks no lifting over 10 pounds for 6 weeks Dressing / Incision Call your doctor if your incision/area has: Continuous Slow Oozing and Sudden Increased Bleeding Call your doctor if you observe: Fever of 101 or Higher Follow Up Care Please Follow Up With: Chad Burrows MD When: 2 weeks for follow-up Test Results: Test results from this visit will be discussed in further detail at your follow- up appointment, if applicable. Discharge Plan Admission Admit Date/Time: 08/29/23 10:33 Primary Reason for Your Visit: Left nephrectomy Attending Provider: Chad Burrows Primary Care Provider: Care Physician,No Primary Discharge Orders/Prescriptions Prescriptions: New docusate sodium [Colace] 100 mg capsule 100 mg PO BID Qty: 20 0RF ibuprofen 600 mg tablet 600 mg PO Q6H PRN (Reason: pain (scale score 4-6)) Qty: 20 0RF Continued lansoprazole 15 mg Capsule,Delayed Release(Dr/Ec) 15 mg PO DAILY ferrous gluconate 324 mg (38 mg iron) tablet 324 mg PO DAILY Qty: 30 0RF Hold Instructions: Pt has been DC'd ascorbic acid (vitamin C) [C-500] 500 mg tablet 500 mg PO DAILY Qty: 30 0RF Hold Instructions: Pt has been DC'd Rx Instructions: Take with iron tablet Referrals / Follow Up: Chad Burrows MD [Med Staff - Active Staff] - Care Physician,No Primary [Primary Care Provider] -
--- NOTE | 2023-08-29 16:57 | PCM.HP.STD ---
HPI - General General Date of Admission: 08/29/23 Date of Service: 08/29/23 HPI Narrative PIERO XIE, is a 52 F who presents for a nephrectomy on the left side she has a nonfunctioning hydronephrotic kidney from the UPJ obstruction differential function is only 3% therefore repair of this kidney would not be of benefit and recommended we do a nephrectomy since it came in with infection and pain. [facility] Medical History (Updated 08/17/23 @ 11:31 by Rehana Islas) Alcohol use Gastric reflux History of diverticulitis History of hiatal hernia History of pain when walking Hypertension Injury of back Low iron Marijuana smoker Marijuana use Wears glasses Home Medications lansoprazole 15 mg capsule,delayed release 15 mg PO DAILY GERD 10/31/21 [History Last Taken 08/28/23] ascorbic acid (vitamin C) 500 mg tablet (C-500) 500 mg PO DAILY SUPPLEMENT #30 tabs 07/20/23 [Rx Last Taken Unknown] ferrous gluconate 324 mg (38 mg iron) tablet 324 mg PO DAILY SUPPLEMENT #30 tabs 07/20/23 [Rx Last Taken Unknown] docusate sodium 100 mg capsule (Colace) 100 mg PO BID #20 caps 08/29/23 [Rx Last Taken Unknown] ibuprofen 600 mg tablet 600 mg PO Q6H PRN pain (scale score 4-6) #20 tabs 08/29/23 [Rx Last Taken Unknown] Allergy/AdvReac Type Severity Reaction Status Date / Time clarithromycin [From Biaxin] Allergy vomit, SOB Verified 08/17/23 11:00 hydrocodone [From Vicodin] Allergy vomit, SOB Verified 08/17/23 11:00 oxycodone Allergy Shortness Verified 08/17/23 11:00 of breath Family History Other Cancer Diabetes Heart disease Surgical History (Updated 08/17/23 @ 11:06 by Rehana Islas) History of carpal tunnel release of both wrists History of cystoscopy History of lumbar discectomy History of surgery History of surgery of uterus Hx laparoscopic cholecystectomy Hx of appendectomy Hx of section Hx of shoulder surgery Hx of tonsillectomy Hx of tubal ligation Social History household members: none Smoking Status: Current every day smoker tobacco type: cigarettes alcohol intake: current substance use type: does not use Vital Signs Vital Signs Vital Signs: 08/29/23 10:56 08/29/23 10:56 Temperature 99 F Temperature Source Temporal Pulse Rate 18 L Respiratory Rate 18 Respiratory Pattern Normal Blood Pressure 173/98 H Blood Pressure Mean 123 Blood Pressure Source Monitor Blood Pressure Position Semi-Fowlers Blood Pressure Location Left Arm Pulse Ox 98 Oxygen Delivery Method Room Air Weight Weight: 109.769 kg Body Mass Index (BMI) 41.5
[2023-08-29] MEDS: Bupivacaine Mpf 0.5% 30 ML VIAL (16:58)
--- NOTE | 2023-08-29 16:58 | OP.PCM_ITS ---
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 Patient was taken back to the operating room at a smooth induction of anesthesia she was placed for supine on the table and then was placed in full flank position with the right flank down axillary roll in place she was padded and secured to the table to make sure all her pressure points were protected and then the abdomen was shaved prepped and draped in usual sterile fashion made camera trocar left arm trocar right arm trocar second right arm trocar and an air seal port I then used a small needle and obtained very Veress needle to you obtain the pneumoperitoneum and then the camera trocar was placed I then placed out all my trocars as described above the robot was docked and we started with the procedure first I freed up the colon incised the white line of Toldt and reflected the colon off the kidney this was a somewhat unusual kidney it was a chronically hydronephrotic kidney but at this point is extremely scarred so take a lot of dissection to remove the fat off the kidney to dissect inferiorly and superiorly the extreme adhesions between the colovesical fat and the kidney were encountered took a long time to dissect this free then was able to get underneath the Gerota's fascia inferiorly and underneath the gonadal vein and the ureter I then unable elevated this up the use the fourth arm to elevate the kidney up as a continue to free up the kidney again this was a big floppy kidney that was adhered to the fat in the from the colonic fat took a long time to dissect this free as our March way with way underneath the kidney I then encountered the small vein this was clipped and ligated with with [place] clips and then I encountered a large renal artery this was clipped twice down in 1 upping and transected encountered renal vein it was clipped to 2 times down with 1 clip up and transected I then Marched my way up and encountered another vein and this was clipped 2 clips up 1 clip up and then as as I went along there was a lot of little tiny bleeding vessels from the fat the adrenal gland was identified but not taken I then went above the adrenal gland and then the upper pole of the kidney is extremely adherent to the fat took quite some time to dissect this off the fat because again the kidney was chronically hydronephrotic and chronically infected and so was extremely adherent to the upper pole and then was able to then free up the kidney from the lateral aspect of the abdomen and then went lower into the tail the Gerota's I transected the ureter remove the stent this was removed through the small incision in the ureter and pulled the stent gave to the administrative assistant office manager pulled it out and then I put a clip down the ureter and then we clipped the gonadal vessel and transected this and then we came across the tail of the of the Gerota's fat major the kidney was completely freed up and then the robot was undocked I scrubbed then we placed a 15 mm trocar through the fourth port and then put the port in then put the kidney in the bag close the bag up and then we extracted the kidney through a extraction site we extended the incision in the fourth port and extracted the lower side incision we then closed the incision closing the fascia make sure that this was a good closure and then looked back and we checked that the closure was complete there was no injury to bowel and the critical structures I then inspected the hilum there was a small vessel bleeding and a clip was placed and then Floseal was placed around this and then no more destiny bleeding was noticed blood count and blood loss was very low was only about 50 to 75 cc of blood loss irrigated the abdomen copiously all blood products and clots were evacuated out I then removed the trocars we then closed our air seal port with a stitch to close the fascia using a Patricio Collado stitch and then all the incisions were closed with subcuticular stitches patient's anesthetic is currently being reversed she is clinically stable and should be taken back to the PACU once closing the incisions. Surgeon: Chad Burrows Type of Anesthesia: General Drains: gibson Estimated Blood Loss (mL): 75 Admit VTE Documentation VTE Present on Admission: No VTE Mechan Device Prophylaxis: SCD's
[2023-08-29] MEDS: Lactated Ringers 1,000 ML 125 ML IV (18:27)
[2023-08-29] MEDS: Docusate Sodium 100 MG Capsule 200 MG PO (21:15)
[2023-08-29] MEDS: HYDROmorphone 0.5 MG/0.5 ML SYRINGE IV ×2 (21:15→23:37)
[2023-08-29] MEDS: Ketorolac 15 MG/ML Vial IV (22:17)
[2023-08-29] MEDS: Ondansetron 4 MG/2 ML Vial IV (23:37)
[2023-08-29] MEDS: Mag Hydrox/Al Hydrox/Simeth 30 ML UDC PO (23:37)
[2023-08-30] MEDS: Lactated Ringers 1,000 ML 125 ML IV ×3 (02:10→16:04)
[2023-08-30] MEDS: HYDROmorphone 0.5 MG/0.5 ML SYRINGE IV ×2 (02:12→05:31)
[2023-08-30] MEDS: Metoclopramide 10 MG/2 ML Vial IV ×2 (02:13→12:56)
[2023-08-30 02:32] VITALS: BP 123/68; PULSE 98; RESP 18; TEMP 36.8; O2SAT 96
[2023-08-30] MEDS: Mag Hydrox/Al Hydrox/Simeth 30 ML UDC PO ×2 (05:33→19:49)
[2023-08-30 06:22] VITALS: BP 149/74; PULSE 100; RESP 18; TEMP 36.8; O2SAT 97
--- NOTE | 2023-08-30 07:13 | PCM.PN.GU ---
Subjective Subjective Status post simple nephrectomy for infected kidney very difficult surgery took a long time patient is fairly sore today does not feel like she is ready to go home we will DC her Marinelli, advance diet to regular as tolerated transition from IV Dilaudid to oral Dilaudid Objective Data Objective Data Vital Signs: Vital Signs Temp Pulse Resp BP Pulse Ox O2 Del Method O2 Flow Rate 98.2 F 100 18 149/74 H 97 Nasal Cannula 2 08/30/23 06:22 08/30/23 06:22 08/30/23 06:22 08/30/23 06:22 08/30/23 06:22 08/30/23 06:22 08/30/23 06:22 Oxygen Flow Rate (L/min) 2 Oxygen Delivery Method Nasal Cannula Weight: 109.769 kg Body Mass Index (BMI) 41.5 Intake & Output: Intake and Output for Last 24 Hours 08/28/23 08/29/23 08/30/23 23:59 23:59 23:59 Intake Total 1110 / 1110 964.58 / 964.58 Output Total 360 / 660 600 / 600 Balance 750 / 450 364.58 / 364.58 Lab / Micro Data Labs: Laboratory Results - last 24 hr 08/29/23 18:09: Hep Bs Antigen Cancelled, Hep Bs Antibody Cancelled, Hep B Core Total Ab Cancelled, Hepatitis C Antibody Cancelled, HIV 1&2 Antibody Cancelled
[2023-08-30 07:15] VITALS: O2SAT 95
[2023-08-30 07:55] VITALS: BP 142/76; PULSE 94; RESP 18; TEMP 36.6; O2SAT 99
[2023-08-30] MEDS: Pantoprazole Sodium 20 MG Tablet PO (07:55)
[2023-08-30] MEDS: HYDROmorphone 2 MG TABLET PO ×5 (07:55→22:28)
[2023-08-30] MEDS: Docusate Sodium 100 MG Capsule 200 MG PO ×2 (07:55→19:49)
[2023-08-30] MEDS: 0.9% Saline Lock 10 ML Syringe IV ×3 (07:56→12:56)
[2023-08-30] MEDS: Ondansetron 4 MG/2 ML Vial IV ×2 (07:56→19:49)
[2023-08-30] MEDS: Ketorolac 15 MG/ML Vial IV ×2 (09:23→19:49)
--- NOTE | 2023-08-30 09:48 | CASEMGMT ---
IVAN KUHN Assessment: Face to Face with pt for initial transition planning/care coordination assessment. IVAN KUHN introduced self and role at [facility], pt voices understanding and consents to assessment. Pt's is also at the bedside. Pt is A&O x4 and answers all questions appropriately at this time. Care providers, pharmacy, and demographics verified/updated. Admitting Dx: Left Lap Robotic Nephrectomy PCP: Pt. states she will establish soon with Genevieve Spcarlos (states she was not able to make it to her appt. that had been set up for her on Aug 08 as she states she was not aware of it until the day before and had work conflicts). Specialists: Stormy (Urologist) Preferred Pharmacy: [facility] Insurance: EGP Clarity/EGPIN Prescription Benefit: yes LNOK: Arnav Pavon () Living Will/HCPOA: No and No. Pt. declines to receive information about ADs. Pt. is aware that she can make an appt. with [facility] to establish these documents if needed. Living Arrangements: Pt lives with her , her daughter, and their grandchildren in a 2 story home (bedrooms on second floor). 1 step with railing to enter home and 14 steps with railing to 2nd floor. Prior to this admission Pt. states she ambulated these steps fine. Pt. states she is independent in all ADLs and IADLs. Transportation: Pt drives self and states her also drives. DME: Walker. Denies need or additional DME HHC/SNF: Denies any previous HHC or SNF Pt states no concerns with going home at time of dc. Pt states no further concerns/needs. CM to follow. Advised pt to ask CM if any further question/concerns/needs arise, voices understanding. Pt Goal: Home Plan: Pt. to discharge home with family support and follow-up plans in place.
[2023-08-30 14:02] VITALS: BP 141/79; PULSE 96; RESP 18; TEMP 37.3; O2SAT 95
[2023-08-30 20:44] VITALS: BP 119/56; PULSE 98; RESP 16; TEMP 37.1; O2SAT 96
[2023-08-31] VITALS (7 sets, daily range): BP systolic 125–149; BP diastolic 59–78; PULSE 80–94; RESP 16–18; TEMP 37.1–37.9; O2SAT 94–96
[2023-08-31] MEDS: Lactated Ringers 1,000 ML 125 ML IV (00:11)
[2023-08-31] MEDS: HYDROmorphone 2 MG TABLET PO ×7 (01:35→23:18)
[2023-08-31] MEDS: Ketorolac 15 MG/ML Vial IV ×2 (03:52→11:15)
[2023-08-31] MEDS: Ondansetron 4 MG/2 ML Vial IV (06:12)
[2023-08-31] MEDS: Mag Hydrox/Al Hydrox/Simeth 30 ML UDC PO (06:12)
--- NOTE | 2023-08-31 07:01 | PCM.PN.GU ---
Subjective Subjective Postoperative day #2 status post left nephrectomy, patient doing better still need to work off oxygen ambulate we will Hep-Lock fluids catheter is out urinating okay passing gas but no solid food encourage more p.o. intake. Probably anticipate discharge tomorrow morning Objective Data Objective Data Vital Signs: Vital Signs Temp Pulse Resp BP Pulse Ox O2 Del Method O2 Flow Rate 98.7 F 80 16 125/59 H 96 Room Air 2 08/31/23 02:00 08/31/23 02:00 08/31/23 02:00 08/31/23 02:00 08/31/23 02:00 08/31/23 02:00 08/30/23 20:44 Oxygen Flow Rate (L/min) 2 Oxygen Delivery Method Room Air Weight: 109.769 kg Body Mass Index (BMI) 41.5 Intake & Output: Intake and Output for Last 24 Hours 08/29/23 08/30/23 08/31/23 23:59 23:59 23:59 Intake Total 1110 / 1110 2702.08 / 2702.08 1000 / 1000 Output Total 360 / 660 1300 / 1300 Balance 750 / 450 1402.08 / 1402.08 1000 / 1000
[2023-08-31] MEDS: Docusate Sodium 100 MG Capsule 200 MG PO ×2 (08:16→19:50)
[2023-08-31] MEDS: Pantoprazole Sodium 20 MG Tablet PO (08:16)
[2023-08-31] MEDS: 0.9% Saline Lock 10 ML Syringe IV ×2 (11:14→19:50)
[2023-08-31] MEDS: Acetaminophen 325 MG Tablet PO (14:03)
[2023-09-01] MEDS: HYDROmorphone 2 MG TABLET PO ×3 (02:30→08:41)
[2023-09-01 02:32] VITALS: BP 138/93; PULSE 92; RESP 16; TEMP 37; O2SAT 92
[2023-09-01 07:20] VITALS: O2SAT 93
[2023-09-01 08:40] VITALS: BP 147/79; PULSE 87; RESP 14; TEMP 36.4; O2SAT 95
[2023-09-01] MEDS: Docusate Sodium 100 MG Capsule 200 MG PO (08:40)
[2023-09-01] MEDS: Pantoprazole Sodium 20 MG Tablet PO (08:40)
--- NOTE | 2023-09-01 09:06 | PCM.DC.SUM ---
Providers Date of Admission: 08/29/23 Date of Discharge: 09/01/23 Primary Care Physician: No Primary Care Phys Reason For Visit: Left Lap Robotic Nephrectomy Diagnosis Discharge Diagnosis (1) Obstruction of left ureteropelvic junction (UPJ): Status: Acute Code(s): N13.5 - Crossing vessel and stricture of ureter without hydronephrosis Medications at Discharge Home Medications lansoprazole 15 mg capsule,delayed release 15 mg PO DAILY GERD 10/31/21 ascorbic acid (vitamin C) 500 mg tablet (C-500) 500 mg PO DAILY SUPPLEMENT #30 tabs 07/20/23 ferrous gluconate 324 mg (38 mg iron) tablet 324 mg PO DAILY SUPPLEMENT #30 tabs 07/20/23 docusate sodium 100 mg capsule (Colace) 100 mg PO BID #20 caps 08/29/23 ibuprofen 600 mg tablet 600 mg PO Q6H PRN pain (scale score 4-6) #20 tabs 08/29/23 hydromorphone 2 mg tablet (Dilaudid) 2 mg PO Q4H PRN pain 7 days #14 tabs 08/31/23 Hospital Course Summary of Care Provided Hospital Course: 52-year-old female status post left nephrectomy for nonfunctioning hydronephrotic chronically dilated kidney fairly difficult surgery because of the amount of scar tissue. But she is recovering well. Tolerating diet ambulating passing gas but no bowel movements yet abdomen soft and benign not distended pain control has been somewhat difficult but she has been doing okay at this point so she can go home with medications and follow-up in my office in 2 weeks for checkup Physical Exam Const alert and oriented x3 General Appearance: cooperative HEENT normocephalic and head/scalp atraumatic Eyes PERRL and EOMs intact bilaterally Neck supple, no JVD and no carotid bruits Resp normal respiratory effort, normal air movement and clear to auscultation bilaterally Cardio regular rate and no murmurs GI normal to inspection, nondistended, normoactive bowel sounds and soft to palpation Extremity normal capillary refill General Extremity: no tenderness to palpation of joints or extremities; Negative for edema Skin no rashes or lesions noted and no wounds General Skin Exam: no breakdown Neuro CN's II-XII intact bilaterally Psych affect normal Appearance: appropriate Weight / BMI Weight Weight: 109.769 kg Body Mass Index (BMI) 41.5 D/C Instructions Discharge Diet: No restrictions, Light diet - advance as tolerated and Soft diet May resume sexual activity in: 6-8 weeks Call your doctor if your incision/area has: Continuous Slow Oozing and Sudden Increased Bleeding Call your doctor if you observe: Fever of 101 or Higher Please Follow Up With: Chad Burrows MD When: 2 weeks for follow-up Meaningful Use Info Meaningful Use Diagnoses (Choose all that apply): None applicable Discharge Plan Admission Admit Date/Time: 08/29/23 10:33 Primary Reason for Your Visit: Left nephrectomy Attending Provider: Chad Burrows Primary Care Provider: Care Physician,No Primary Discharge Orders/Prescriptions Prescriptions: New docusate sodium [Colace] 100 mg capsule 100 mg PO BID Qty: 20 0RF ibuprofen 600 mg tablet 600 mg PO Q6H PRN (Reason: pain (scale score 4-6)) Qty: 20 0RF hydromorphone [Dilaudid] 2 mg tablet 2 mg PO Q4H PRN (Reason: pain) 7 Days Qty: 14 0RF Continued lansoprazole 15 mg Capsule,Delayed Release(Dr/Ec) 15 mg PO DAILY ferrous gluconate 324 mg (38 mg iron) tablet 324 mg PO DAILY Qty: 30 0RF Hold Instructions: Pt has been DC'd ascorbic acid (vitamin C) [C-500] 500 mg tablet 500 mg PO DAILY Qty: 30 0RF Hold Instructions: Pt has been DC'd Rx Instructions: Take with iron tablet Referrals / Follow Up: Chad Burrows MD [Med Staff - Active Staff] - Care Physician,No Primary [Primary Care Provider] -
== END 2023-09-01 11:02 | disposition home or self-care (01) | DRG 660 ==
LOC: ACINP 10:35 → MS3 17:48
PROVIDERS: Admitting Provider Urology; Visit Provider Urology
PROC: 0TT14ZZ Resection of Left Kidney, Percutaneous Endoscopic Approach (ICD-10-PCS; CPT 50546; principal; 2023-08-29 12:25)
DX: N13.5 Crossing vessel and stricture of ureter without hydronephrosis (principal); Z68.41 Body mass index [BMI] 40.0-44.9, adult; E66.01 Morbid (severe) obesity due to excess calories; I10 Essential (primary) hypertension; F17.210 Nicotine dependence, cigarettes, uncomplicated
CPT/HCPCS: 88307; 94668; 99252; 99406; J7120; A4216; G0463; J2405

== ENCOUNTER 2024-06-13 18:22 | Emergency (ER) | payer OTHER, MEDICAID, SELFPAY ==
[2024-06-13 18:22] VITALS: BP 213/123; BP 219/119; PULSE 116; PULSE 120; RESP 16; RESP 18; TEMP 36.6; O2SAT 93; O2SAT 96
--- NOTE | 2024-06-13 19:36 | EDS_ITS ---
HPI History of Present Illness Chief Complaint: Nosebleed Informant: patient Narrative Narrative: Left-sided nosebleed started at 6 PM. No anticoagulation medicines. Denies any digital manipulation. No history of similar. Bleeding heavily therefore came to the ED. She had her head back there for was spitting out blood. Nasal clamps were placed from triage. Denies history of similar. 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 Does have dryness sensation in her nose. Prior similar symptoms: No PFSH PFSH Medical History Marijuana smoker Low iron Wears glasses Marijuana use Alcohol use Injury of back History of hiatal hernia History of diverticulitis Gastric reflux History of pain when walking Hypertension Home Medications ?Medication ?Instructions ?Recorded ?Last Taken ?Type lansoprazole 15 mg capsule,delayed 15 mg PO DAILY GERD 10/31/21 08/28/23 History release ascorbic acid (vitamin C) 500 mg 500 mg PO DAILY SUPPLEMENT #30 tabs 07/20/23 Unknown Rx tablet (C-500) ferrous gluconate 324 mg (38 mg 324 mg PO DAILY SUPPLEMENT #30 tabs 07/20/23 Unknown Rx iron) tablet docusate sodium 100 mg capsule 100 mg PO BID #20 caps 08/29/23 Unknown Rx (Colace) hydromorphone 2 mg tablet 2 mg PO Q4H PRN pain 7 days #14 08/31/23 Unknown Rx (Dilaudid) tabs Allergy/AdvReac Type Severity Reaction Status Date / Time clarithromycin (From Biaxin) Allergy vomit, SOB Verified 06/13/24 18:23 hydrocodone (From Vicodin) Allergy vomit, SOB Verified 06/13/24 18:23 oxycodone Allergy Shortness Verified 06/13/24 18:23 of breath Family History Other Cancer Diabetes Heart disease Surgical History History of surgery of uterus History of cystoscopy History of lumbar discectomy Hx of appendectomy Hx laparoscopic cholecystectomy Hx of shoulder surgery History of carpal tunnel release of both wrists History of surgery Hx of tubal ligation Hx of section Hx of tonsillectomy Social History household members: none Smoking Status: Current every day smoker tobacco type: cigarettes alcohol intake: current substance use type: does not use ROS ROS ED Constitutional Constitutional ED: Denies chills, fever(s) or sweats Eyes Eyes: Denies change in vision ENT ENT ED: Reports other Details: Nosebleed ; Denies dysphagia or sore throat Cardiovascular Cardiovascular: Denies chest pain, leg edema, palpitations or racing heartbeat Respiratory/Chest Respiratory/Chest: Denies cough, dyspnea or dyspnea on exertion Gastrointestinal Gastrointestinal: Denies abdominal pain, diarrhea, nausea or vomiting Genitourinary Genitourinary ED: Denies dysuria, hematuria or urinary frequency Musculoskeletal Musculoskeletal: Denies back pain, extremity pain or neck pain Integumentary Denies rash or wounds Neurologic Neurologic: Denies headache(s), paresthesias or weakness EXAM Physical Exam Const Vital Signs: 06/13/24 18:22 06/13/24 18:22 Temperature 98 F Temperature Source Temporal Pulse Rate 120 H 116 H Respiratory Rate 18 16 Blood Pressure 213/123 H 219/119 H Blood Pressure Mean 153 152 Pulse Ox 96 93 Oxygen Delivery Method Room Air Room Air Positive well nourished and well developed General Appearance ED: well developed and NAD HEENT Reports moist mucous membranes HEENT Narrative: Nasal clamps removed, left nare there was no abrasion of the septum, there was soft tissue abrasion anterior inferior aspect soft tissue inside the nare. There is no active bleeding. No posterior pharyngeal erythema, no active bleeding in the posterior pharynx. normocephalic and atraumatic Eyes EOMs intact bilaterally and conjunctivae normal General Eye ED: Yes normal appearance of both eyes Neck no lymphadenopathy and supple General: Negative for tenderness Chest Wall Chest: Negative for tenderness Resp normal respiratory effort and normal air movement Effort and Inspection: symmetric chest movement; Negative for respiratory distress Cardio regular rate, regular rhythm and no murmurs Peripheral Pulses: pulses 2+ throughout GI normal to inspection, nondistended, normoactive bowel sounds and non-tender Palpation: Negative for guarding or rebound tenderness present Back/Spine no CVA tenderness and no thoracic nor lumbar tenderness Extremity normal to inspection General Extremety ED: Negative for edema or tenderness General Extremity: Negative for edema Neuro oriented x3 and no sensory deficits noted Sensorium / Orientation: awake and alert Skin no rashes or lesions noted and no wounds MDM MDM MDM Narrative Medical decision making narrative: Interventions / MDM: Differential diagnosis: Left-sided epistaxis, soft tissue abrasion Diagnosis considered but do not suspect: N/A My EKG interpretation: N/A Imaging independently reviewed and interpreted by myself: N/A External documents reviewed: N/A Test considered but not ordered:N/A ED course: Patient bleeding is now controlled. Appears to be soft tissue anterior nare not on the septum. Discussed avoiding digital manipulation, no blowing. Discussed using humidifier. Antibiotic ointment on a Q-tip to help with skin healing. She is given follow-up with ENT. Discussed return precautions. All questions were answered. Re-evaluation: stable Disposition discussed with patient/family/significant other: Patient and significant other Case discussed with consulting clinician: N/A This note was generated with [employer] dictation software. It may contain incorrect words, spelling, and punctuation that were not noted in checking the note before signing. Discharge Plan Triage Chief Complaint: Nosebleed ED Provider: Burke Perera Dx/Rx/DC Orders Clinical Impression: Left-sided nosebleed, Skin abrasion Instructions: ED Epistaxis (Adult) Prescriptions: No Action lansoprazole 15 mg Capsule,Delayed Release(Dr/Ec) 15 mg PO DAILY docusate sodium [Colace] 100 mg capsule 100 mg PO BID Qty: 20 0RF hydromorphone [Dilaudid] 2 mg tablet 2 mg PO Q4H PRN (Reason: pain) 7 Days Qty: 14 0RF ferrous gluconate 324 mg (38 mg iron) tablet 324 mg PO DAILY Qty: 30 0RF ascorbic acid (vitamin C) [C-500] 500 mg tablet 500 mg PO DAILY Qty: 30 0RF Rx Instructions: Take with iron tablet Primary Care Provider: Care Physician,No Primary Referrals: Sumit Burns MD [Med Staff - Active Staff] - 1 Week Care Physician,No Primary [Primary Care Provider] - Activity Restrictions/Additional Instructions: Left side epistaxis controlled. Anterior abrasion of the soft tissue not on the septum. If rebleeds clamp and leave on for 30 minutes. If not controlled return to ED for reevaluation. Otherwise may follow-up with ENT as an outpatient. Use a Vences fire can help. Can use antibiotic cream on a Q-tip along the skin region to help with skin healing. Avoid picking or blowing your nose. Print Language: Occitan Disposition Disposition: Home, Self Care Discharge Date/Time: 06/13/24 19:49
== END 2024-06-13 19:49 | disposition home or self-care (01) ==
PROVIDERS: Emergency Provider Emergency Medicine; Visit Provider Emergency Medicine
DX: R04.0 Epistaxis (principal); F17.210 Nicotine dependence, cigarettes, uncomplicated; I10 Essential (primary) hypertension; K21.9 Gastro-esophageal reflux disease without esophagitis; T14.8XXA Other injury of unspecified body region, initial encounter; X58.XXXA Exposure to other specified factors, initial encounter
CPT/HCPCS: 99282